=== PATIENT | male | born 1960 | race African-American/Black ===

== ENCOUNTER 2021-01-05 19:47 | Inpatient (IN) | payer MEDICARE, MEDICAID, SELFPAY ==
[2021-01-05] VITALS (10 sets, daily range): BP systolic 109–143; BP diastolic 55–97; PULSE 90–125; RESP 16–22; TEMP 36.4–36.9; O2SAT 96–100; BMI 37.3
--- NOTE | ~2021-01-05 | CT_ITS ---
EXAMINATION: CT HEAD WITHOUT CONTRAST CLINICAL INFORMATION: Follow-up TPA COMPARISON: 01/05/2021 TECHNIQUE: Contiguous axial imaging was performed from the skull base to vertex without intravenous administration of contrast. This CT examination was performed using dose optimization techniques as appropriate, variously including the following: *Automated exposure control *Adjustment of mA and/or kV according to patient size (this includes techniques or standardized protocols for targeted exams where dose is matched to indication/reason for exam; i.e. extremities or head) *Use of iterative reconstruction technique DLP: 770 mGy-cm FINDINGS: No acute intracranial hemorrhage seen. Since the prior study, there is loss of mehta-white differentiation involving the left occipital cortex, image 18.. The region of abnormality measures 2 x 2.4 cm. Also seen is abnormal low density adjacent the left temporal horn in the same image measuring 3.0 x 1.4 cm. The appearance is consistent with subacute left [facility] territory ischemia. There is subtle new asymmetric low density involving the left thalamus, image 25/55, which appears to extend to the left centrum semiovale. Chronic cerebellar infarcts again seen. Again seen is symmetric ex vacuo dilation of the lateral ventricles. Cavum septum pellucidum et vergae. No mass effect or midline shift. No new hydrocephalus. Globes and orbits are normal. No acute sinusitis. No skull fracture. CT/CT head/brain wo con IMPRESSION: No acute intracranial hemorrhage status post TPA administration. New loss of mehta-white differentiation involving the left occipital cortex and abnormal low density in the left temporal lobe consistent with subacute left posterior cerebral artery territory ischemia. Also seen is subtle new asymmetric low density involving the left thalamus, concerning for ischemia. This critical result was discussed with Rebeka TORRES by telephone at 01/06/2021 9:40 PM and it was ascertained that the content and urgency of the report was understood at the time of direct communication.
--- NOTE | ~2021-01-05 | CT_ITS ---
EXAMINATION: CT HEAD WITHOUT CONTRAST (STROKE PROTOCOL) CLINICAL INFORMATION: Stroke protocol. COMPARISON: None TECHNIQUE: Contiguous axial imaging was performed from the skull base to vertex without intravenous administration of contrast. This CT examination was performed using dose optimization techniques as appropriate, variously including the following: *Automated exposure control *Adjustment of mA and/or kV according to patient size (this includes techniques or standardized protocols for targeted exams where dose is matched to indication/reason for exam; i.e. extremities or head) *Use of iterative reconstruction technique DLP: 122 mGy-cm FINDINGS: There is no intracranial hemorrhage, hematoma, or extra-axial fluid collection. The ventricles are normal in size. There is no hydrocephalus, edema, or mass effect. The mehta-white matter differentiation appears symmetric. There is no acute infarct or mass lesion. The calvarium appears intact. There is no pneumocephalus or orbital emphysema. The visualized sinuses and middle ears and mastoid air cells show no significant mucosal thickening. There are no air-fluid levels. CT/CT head for stroke IMPRESSION: No acute intracranial pathology. This critical result was discussed with Dr. Espitia 01/05/20212013 hours It was ascertained that the content and urgency of the report was understood at the time of direct communication.
--- NOTE | ~2021-01-05 | CT_ITS ---
EXAMINATION: CTA OF THE HEAD AND NECK CLINICAL INFORMATION: COMPARISON: Contemporaneous head CT on 01/05/2021. TECHNIQUE: Test bolus sequences followed by intravenous administration 70 mL of Omnipaque 350. Helical imaging was performed in the axial plane from the mediastinum to the skull vertex. Delayed postcontrast imaging of the head was also performed. The data was processed at the radiologic technologist's workstation for generation of MIP sequences. Three-dimensional volume rendered reformatted images were also generated at an offline 3-D workstation. Stenoses are assessed in accordance with NASCET criteria unless otherwise indicated. Limited study with motion artifacts. This CT examination was performed using dose optimization techniques as appropriate, variously including the following: *Automated exposure control *Adjustment of mA and/or kV according to patient size (this includes techniques or standardized protocols for targeted exams where dose is matched to indication/reason for exam; i.e. extremities or head) *Use of iterative reconstruction technique DLP: 1849 mGy-cm. FINDINGS: CTA neck: The aortic arch and origins of the great vessels are obscured due to motion. The proximal vertebral arteries and lower common carotid arteries are not well assessed due to artifacts. The mid to distal common carotid arteries and carotid bifurcations are normal. The cervical internal carotid arteries are normal. The distal cervical vertebral arteries are patent. The soft tissues of the neck are grossly unremarkable and limited for assessment due to motion artifacts. The imaged portions of the lungs demonstrate mild subsegmental atelectasis. CTA head: The intradural vertebral arteries and basilar artery are normal. The right MACHINE ATTENDANT is patent. There is occlusion of the left posterior cerebral artery at the proximal P2 segment. The internal carotid arteries are of normal caliber. The DAMEON and MCA vascular complexes bilaterally are normal. The venous sinuses opacify normally. Moderate diffuse parenchymal volume loss and ex vacuo dilatation of the ventricles noted. Chronic small infarcts in the cerebellum. Chronic infarct in the right occipital lobe. CT/CT angio head neck stroke IMPRESSION: Significantly limited study due to motion degradation and venous contamination in the lower neck from the thyroid cartilage through the mediastinum precluding diagnostic interpretation. The proximal cervical vasculature in the neck is obscured due to motion artifacts and venous contamination. The distal vertebral arteries are patent. The mid to distal common carotid arteries, carotid bifurcations, and internal carotid arteries are patent. Age-indeterminate occlusion of the left MACHINE ATTENDANT at the proximal P2 segment. Remainder of the intracranial vasculature is patent. Findings discussed with Dr. Espitia at 8:45 PM on 01/05/2021.
--- NOTE | ~2021-01-05 | XR_ITS ---
EXAMINATION: XR CHEST CLINICAL INFORMATION: No priors.[place]ke COMPARISON: No priors. TECHNIQUE: Frontal view of the chest was obtained. FINDINGS: Left chest wall AICD with leads overlying the right atrium and right ventricle. Normal lung volumes. No consolidation or pulmonary edema. Mild central vascular congestion. No pneumothorax or pleural effusion. Cardiomediastinal silhouette is mildly enlarged. No acute osseous abnormality. XR/XR chest 1V IMPRESSION: Mild cardiomegaly and central vascular congestion.
--- NOTE | 2021-01-05 19:45 | PC.NURSE ---
PT TO CT IN STRETCHER.
--- NOTE | 2021-01-05 19:50 | ECG_ITS ---
Test Reason : STROKE? Blood Pressure : / mmHG Vent. Rate : 091 BPM Atrial Rate : 081 BPM P-R Int : 000 ms QRS Dur : 118 ms QT Int : 362 ms P-R-T Axes : 000 057 252 degrees QTc Int : 445 ms Atrial fibrillation Low voltage QRS Non-specific intra-ventricular conduction delay Nonspecific T wave abnormality Abnormal ECG No previous ECGs available Referred By: Michael Espitia Electronically Signed By:SEDRICK ODONNELL
--- NOTE | 2021-01-05 19:53 | ED.NEUROSD ---
HPI - Neuro Symptoms/Deficit General Chief Complaint: Neuro Symptoms/Deficit Stated Complaint: stroke alert Time Seen by Provider: 01/05/21 19:50 Source: patient and EMS Mode of arrival: EMS Limitations: no limitations History of Present Illness HPI Narrative: This is a 60-year-old male came in by ambulance for evaluation for possible stroke. 60-year-old male last known seen about an hour ago before arrival, patient had a sudden onset of right-sided weakness, slurred speech, loss of vision in the right eye. Patient is known to have history of atrial fibrillation, patient reportedly not taking anticoagulation. Patient had urological procedure done at [facility] yesterday (record was requested). Patient with a bag a Martines with pinkish urine but no active bleed or clots. Patient unable to give us more history about the procedure done yesterday. Related Data Allergies Allergy/AdvReac Type Severity Reaction Status Date / Time No Known Allergies Allergy Verified 01/05/21 19:50 Review of Systems Review of Systems: All other systems are reviewed and are negative Constitutional: Reports as per HPI and Reports no additional constitutional complaints Eyes: Reports as per HPI and Reports no additional eye complaints Reports system reviewed and no additional complaints, except as documented Cardiovascular: Reports as per HPI and Reports no additional cardiovascular complaints Respiratory: Reports as per HPI and Reports no additional respiratory complaints Gastrointestinal: Reports as per HPI and Reports no additional gastrointestinal complaints Genitourinary: Reports no additional female genitourinary complaints Musculoskeletal: Reports no additional musculoskeletal complaints Skin/Breast: Reports system reviewed and no additional complaints, except as docu Psychiatric: Reports no additional psychiatric complaints Endocrine: Reports no additional endocrine complaints Hematologic/Lymphatic: Reports no additional hematologic/lymphatic complaints Allergic/Immunologic: Reports no additional allergic/immunologic complaints Reports system reviewed and no additional complaints, except as documented and Reports Abnormal speech present [facility] Social History Social History Advance Directives: No Advance Directives Information Provided: Yes Physical Exam Vital Signs: Vital Signs: Last Vital Signs Temp 97.5 F 01/05/21 22:38 Pulse 90 01/05/21 22:38 Resp 22 H 01/05/21 22:38 BP 123/85 01/05/21 22:38 Pulse Ox 98 01/05/21 22:38 Body Mass Index 37.3 Vital signs have been reviewed as appeared to be correct. Blood pressure normal. Heart rate normal. Respiration rate normal. Temperature normal. Oxygen saturation normal. Appearance: Alert. Oriented X3. No acute distress. Head: Normal external exam. Normocephalic. Atraumatic. No Millard signs noted. No raccoon eyes noted Eyes: PERRLA. EOMI. Conjunctiva and sclera normal. Eyelids normal. ENT: TM's Normal. Pharynx normal. Uvula midline. Moist mucous membranes. No trismus noted. No drooling noted. No muffled voice noted. Neck: Normal inspection. Neck supple. FROM. No adenopathy. Thyroid Normal. No meningeal signs. No neck mass noted. CVS: Normal heart rate and rhythm. Heart sound normal. No murmurs noted. Pulses normal throughout. Respiratory: No respiratory distress. Painless inspiration. Breath sounds normal. No wheezes/rales/rhonchi noted. Chest nontender. No accessory muscle usage noted or decreased air movement noted. Abdomen: Soft and nontender. Bowel sounds normal in all 4 quadrants. No distention noted. No organomegaly noted. No visible injury noted. Back: No CVA tenderness. Full range of motion noted. Skin: Skin warm and dry. Normal skin color. Normal skin turgor. No rashes/lesions/lacerations noted. Extremities: No lower extremity edema. Extremities exhibit normal range of motion. Extremities nontender. Neuro: Oriented X 3 please refer to NIH stroke scale Course Course Course Narrative: 60-year-old male with history of atrial fibrillation, patient declined use of anticoagulation, had a urologic procedure done yesterday at [facility] ([facility] record did not indicate that the patient was here yesterday), will check [facility]. Also multiple attempts to reach to [place] his significant other who stated probably patient yesterday had a prostate biopsy and removal of kidney stone but was not 100% sure. Patient has NIH stroke scale of 8 with significant deficit, not taking anticoagulation (even if he is taking anticoagulation assuming that the patient procedure yesterday and anticoagulation was held before the procedure INR is 1.5) should have been held mild urological procedure done yesterday (which is relative contraindication), CT of the head and neck did not show vascular occlusion the can be treated by intravascular, after discussing the case with Dr. Smith from Neurology we should go ahead and give the tPA. Reevaluation(s) Reevaluation #1: TPA was administrated Despite patient is poor historian, patient declined history of recent major surgery, no history of brain bleed, patient confirm his not on anticoagulation. Time: 20:56 Reevaluation #2: Neuro exam after tPA administrated patient now is able to elevate his right arm with some drift but resisting against gravity, also regain of vision in the right I patient now can see fingers count, slight improvement of her right facial droop. Case discussed with Dr. marsh to follow tPA protocol and admit to ICU. Time: 21:23 Reevaluation #3: Finely record of the patient was received from [facility] patient yesterday had TURP procedure and cystoscopy for kidney removal, noted at discharge instructions from [facility] yesterday that patient can resume Xarelto next day if there is no major treatment. Fortunately patient is still improving after tPA administration in no sign of intracranial bleed, however watching Martines catheter showing urine is more bloody but no pete bleeding or blood clotting. Time: 22:48 MDM - Neuro Symptoms/Deficit Lab Data Attestation: I reviewed the patient's lab results. Result diagrams: 01/05/21 20:19 01/05/21 20:19 Labs: Lab Results 01/05/21 01/05/21 01/05/21 Range/Units 20:11 20:19 20:19 WBC 5.1 (4.8-10.8) X10*3/uL RBC 3.94 L (4.60-5.80) X10*6/uL Hgb 8.7 L (14.0-18.0) g/dl Hct 30.2 L (42-52) % MCV 76.6 L (80-98) fL MCH 22.1 L (27.0-33.0) pg MCHC 28.8 L (31.0-36.0) g/dl RDW 26.6 H (11.0-16.0) % Plt Count 176 (160-400) X10*3/uL MPV 10.5 (9.4-12.4) fL Immature Gran % (Auto) 0.2 (0.0-0.4) % Neut % (Auto) 67.9 (45-73) % Lymph % (Auto) 18.1 L (20-40) % [place] % (Auto) 10.6 (2-11) % Eos % (Auto) 2.6 (0-4) % Baso % (Auto) 0.6 (0-2) % Lymph # (Auto) 0.9 L (1.2-4.9) X10*3/uL Win[place] # (Auto) 0.5 (0.1-1.2) X10*3/uL Eos # (Auto) 0.1 (0.0-0.4) X10*3/uL Baso # (Auto) 0.0 (0.0-0.2) X10*3/uL Abs Immat Gran (auto) 0.01 (0.00-0.03) X10*3/uL Absolute Neuts (auto) 3.5 (2.0-8.3) X10*3/uL Absolute Nucleated RBC 0.000 (0.0-0.012) X10*3/uL Nucleated RBC % (auto) 0.0 (0.0-0.2) /100WBC PT 18.0 H (10.8-13.0) SEC INR 1.5 H (0.9-1.1) APTT 32.6 (24.1-38.0) SEC Sodium (135-145) mmol/L Potassium (3.3-5.1) mmol/L Chloride (96-108) mmol/L Carbon Dioxide (22-29) mmol/L Anion Gap (12-20) BUN (9-16) mg/dL Creatinine (0.5-1.4) mg/dL Estim Creat Clear Calc Estimated GFR POC Glucose 112 (60-115) mg/dL Random Glucose (60-115) mg/dL Calcium (8.4-10.2) mg/dL Total Creatine Kinase (38-174) U/L Troponin I High Sens (<3.5-35.0) ng/L 01/05/21 01/05/21 Range/Units 20:19 20:19 WBC (4.8-10.8) X10*3/uL RBC (4.60-5.80) X10*6/uL Hgb (14.0-18.0) g/dl Hct (42-52) % MCV (80-98) fL MCH (27.0-33.0) pg MCHC (31.0-36.0) g/dl RDW (11.0-16.0) % Plt Count (160-400) X10*3/uL MPV (9.4-12.4) fL Immature Gran % (Auto) (0.0-0.4) % Neut % (Auto) (45-73) % Lymph % (Auto) (20-40) % [place] % (Auto) (2-11) % Eos % (Auto) (0-4) % Baso % (Auto) (0-2) % Lymph # (Auto) (1.2-4.9) X10*3/uL Win[place] # (Auto) (0.1-1.2) X10*3/uL Eos # (Auto) (0.0-0.4) X10*3/uL Baso # (Auto) (0.0-0.2) X10*3/uL Abs Immat Gran (auto) (0.00-0.03) X10*3/uL Absolute Neuts (auto) (2.0-8.3) X10*3/uL Absolute Nucleated RBC (0.0-0.012) X10*3/uL Nucleated RBC % (auto) (0.0-0.2) /100WBC PT (10.8-13.0) SEC INR (0.9-1.1) APTT (24.1-38.0) SEC Sodium 142 (135-145) mmol/L Potassium 4.1 (3.3-5.1) mmol/L Chloride 106 (96-108) mmol/L Carbon Dioxide 25 (22-29) mmol/L Anion Gap 15 (12-20) BUN 22 H (9-16) mg/dL Creatinine 2.02 H (0.5-1.4) mg/dL Estim Creat Clear Calc 53.1 Estimated GFR 34 POC Glucose (60-115) mg/dL Random Glucose 91 (60-115) mg/dL Calcium 8.6 (8.4-10.2) mg/dL Total Creatine Kinase 171 (38-174) U/L Troponin I High Sens 20.3 (<3.5-35.0) ng/L Imaging Data Head CT: Radiologist's impression: No acute intracranial pathology CT angio of the head and neck: Radiologist's impression: Significantly limited study due to motion degradation and venous contamination in the lower neck from the thyroid cartilage through the mediastinum precluding diagnostic interpretation. The proximal cervical vasculature in the neck is obscured due to motion artifacts and venous contamination. The distal vertebral arteries are patent. The mid to distal common carotid arteries, carotid bifurcations, and internal carotid arteries are patent. Age-indeterminate occlusion of the left [employer] at the proximal P2 segment. Remainder of the intracranial vasculature is patent. ECG Data Interpretation: Atrial fibrillation at 91 beats per minutes, diffuse nonspecific T-wave changes, prolongation of QRS. NIH Stroke Scale Level of Consciousness: Alert Level of Consciousness Questions: Answers both questions correctly Level of Consciousness Commands: Performs both tasks correctly Best Gaze: Normal Visual: Complete hemianopia Facial Palsy: Partial paralysis (Right-sided) Motor Arm (Right): Some effort against gravity Motor Arm (Left): No drift Motor Leg (Right): No drift Motor Leg (Left): No drift Limb Ataxia: Absent Sensory: Mild to moderate sensory loss Best Language: Mild to moderate aphasia Dysarthia: Normal Extinction and Inattention: No abnormality Score: 8 Critical Care Time Critical Care Time Total Critical Care Time: 60 Attestation: I spent 60 minutes providing critical care service to the patient, this including time spent at the bedside to evaluate the patient, reassess the patient, monitoring vital signs, review labs, and radiographic studies, counseling the patient/family, discussing the case with consultants, disposition the patient. Discharge Plan Discharge Clinical Impression: Cerebrovascular accident Patient Disposition: Admitted As Inpatient
--- NOTE | 2021-01-05 20:05 | PC.NURSE ---
PT TO ROOM #21, EKG OBTAINED, PT ON MONITOR WITH HR 120 IN SR. VS OBTAINED,
--- NOTE | 2021-01-05 20:05 | PC.NURSE ---
BS 112, HOFFMANN INSERTED ARTIFICIAL FLOWERS SUPERVISOR AND DRAINING ORANGE COLORED URINE IN HOFFMANN BAG, URINE 0BTAINED AND SENT TO LAB FOR EVAL. TRYING TO CALL W/O SUCCESS. PT IS TRYING TO REMEMBER WHERE PROCEDURE AT AND IS REMEMBERING HE THINKS HE WAS AT [facility].
[2021-01-05] MEDS: iohexoL 350 MG/ML 75 ML INFUS..BTL IV (20:09)
[2021-01-05 20:23] LABS: Glucose, Whole Blood 112 mg/dL (60-115)
[2021-01-05 20:25] LABS: Imm Gran Abs Auto 0.01 X10*3/uL (0.00-0.03); Imm Gran Pct Auto 0.2 % (0.0-0.4); Lymphocytes Percent Auto 18.1 % (20-40); Mean Corpuscular HGB Conc 28.8 g/dl (31.0-36.0); SCAN SMEAR FLAG 1
[2021-01-05 20:27] LABS: Basophils Percent Auto 0.6 % (0-2); Eosinophils Absolute Auto 0.1 X10*3/uL (0.0-0.4); Eosinophils Percent Auto 2.6 % (0-4); Hematocrit 30.2 % (42-52); Hemoglobin 8.7 g/dl (14.0-18.0); Lymphocytes Absolute Auto 0.9 X10*3/uL (1.2-4.9); Mean Corpuscular Hemoglobin 22.1 pg (27.0-33.0); Mean Corpuscular Volume 76.6 fL (80-98); Mean Platelet Volume 10.5 fL (9.4-12.4); Monocytes Absolute Auto 0.5 X10*3/uL (0.1-1.2); Monocytes Percent Auto 10.6 % (2-11); Neutrophils Absolute Auto 3.5 X10*3/uL (2.0-8.3); Neutrophils Percent Auto 67.9 % (45-73); Platelet Count 176 X10*3/uL (160-400); Red Blood Count 3.94 X10*6/uL (4.60-5.80); Red Cell Distribution Width 26.6 % (11.0-16.0); White Blood Count 5.1 X10*3/uL (4.8-10.8)
[2021-01-05 20:28] LABS: MANUAL DIFF FLAG NO; PLT ABN DIST 1
[2021-01-05 20:38] LABS: INTERNATIONAL NORM RATIO 1.5 (0.9-1.1)
[2021-01-05 20:41] LABS: Partial Thromboplastin Time 32.6 SEC (24.1-38.0)
--- NOTE | 2021-01-05 20:41 | PC.NURSE ---
'S CELL PHONE [phone]
[2021-01-05 20:47] LABS: Anion Gap 15 (12-20); Blood Urea Nitrogen 22 mg/dL (9-16); Calcium 8.6 mg/dL (8.4-10.2); Carbon Dioxide 25 mmol/L (22-29); Chloride 106 mmol/L (96-108); Creatinine Clr Calc Pharmacy 53.1; Estimated Glomerular Filt Rate 34; Glucose Random 91 mg/dL (60-115); Potassium 4.1 mmol/L (3.3-5.1); Sodium 142 mmol/L (135-145)
[2021-01-05 20:50] LABS: Troponin-I High Sensitivity 20.3 ng/L (<3.5-35.0)
--- NOTE | 2021-01-05 21:06 | PC.NURSE ---
TPA STARTED ON PUMP PER EMAR. PT RESTING QUIETLY IN STRETCHER, VS OBTAINED. WILL CONTINUE TO MONITOR PT. MD IN ROOM RE-EVAL PT. PT MOVING AND LIFT RIGHT ARM UP AND DOWN, PT ABLE TO SEE OUT OF RIGHT EYE AT THIS TIME WITH MD.
--- NOTE | 2021-01-05 21:21 | PC.NURSE ---
VS OBTAINED, PT SPEAKING IN CLEAR SENTENCE, RISING RIGHT ARM UP AND DOWN AND ASKING APPROPRIATE QUESTIONS. PT REMAINS ON MONITOR AND WILL CONTINUE TO MONTIOR PT.
--- NOTE | 2021-01-05 21:30 | PC.NURSE ---
PT REMAINS THE SAME, ABLE TO MOVE RIGHT ARM UP AND DOWN. PT STILL HAS SLIGHT FACIAL DROOP TO RIGHT SIDE OF MOUTH. PT REMAINS AWAKE AND ALERT ON MONITOR WITH HR 120 IN AFIB WITH OCCASIONAL PVC'S. ICU PA IN ROOM FOR EVAL.
--- NOTE | 2021-01-05 21:45 | PC.NURSE ---
PT IS HAVING SOME RED BLOOD IN TUBE AND ORANGE COLORED URINE IN HOFFMANN BAG. MELISSA ONOFRE IN ROOM FOR EVAL AND AWARE OF BLOOD IN TUB.
--- NOTE | 2021-01-05 21:52 | PC.NURSE ---
NO CHG IN PT'S CONDITION.
--- NOTE | 2021-01-05 21:58 | PC.NURSE ---
PT ON BED STEELE.
--- NOTE | 2021-01-05 22:07 | PC.NURSE ---
TPA INFUSED AND NS UP AND RUNNING THROUGH LINE. PT DENIES ANY COMPLAINT PT UNABLE TO HAVE BM ON BED STEELE. NO CHG IN PT'S CONDITION.
--- NOTE | 2021-01-05 23:23 | PC.NURSE ---
PT GETTING ANXIOUS AND IS TRYING TO GET OOB. EMPTIED APPROX 1800 ML OF RED/ORANGE COLORED URINE FROM HOFFMANN BAG. PT TOLD SEVERAL TIMES HE CAN NOT GET OOB. PT REFUSING TO USE BEDPAN. VS OBTAINED. AWAITING FOR ICU ROOM ASSIGNMENT.
--- NOTE | 2021-01-05 23:27 | P.HPCC_ITS ---
History of Present Illness Date of Service: 01/05/21 <Bri Wagner PA-C - Last Filed: 01/06/21 01:16> Chief Complaint: right sided weakness <Bri EJ Wagner - Last Filed: 01/06/21 01:16> Patient is a 60-year-old male with a past medical history of CHF, ?afib (self reported not on anticoagulation), ischemic myopathy AICD 2005, DVT, cardiomegaly, HTN, asthma, hypothyroid, BPH, DM2 who ws BIBA to the ED with a stroke alert. Patient was last known well at approximately 6:50pm, 1 hour prior to arrival to ED. His noticed he had sudden right-sided weakness, slurred speech and loss of vision in the right eye. Patient noted he had a urological procedure yesterday but was unable to provide any further information to the ED Dr. His significant other, Vale, was also unable to provide accurate information regarding the procedure to the ED doctor, per notes. Patient's INR was noted to be 1.5. Patient arrived with a Martines in place with a pinkish urine but no active bleed or clots noted by ED doc. NIH stroke scale of an 8 with a significant deficit was noted by ED doctor. ED doctor discussed with Dr. Cordova from Neurology and they decided to give the tPA. tPA was given at 9:06pm. After tPA was given, patient was able to elevate his right arm with some drift but was resisting against gravity. Patient also stated he regained vision in his right eye and a slight improvement of the right facial droop. EKG afib with rate of 91BPM, nonspecific T-wave abnormality, CXR shows AICD in place, mild cardiomegaly and central vascular congestion, labs notable for H&H 8.7/30.2, PT 18, INR 1.5, BUN 22, CR 2.02, pt COVID negative. CT/CT angio head neck stroke IMPRESSION: Significantly limited study due to motion degradation and venous contamination in the lower neck from the thyroid cartilage through the mediastinum precluding diagnostic interpretation. The proximal cervical vasculature in the neck is obscured due to motion artifacts and venous contamination. The distal vertebral arteries are patent. The mid to distal common carotid arteries, carotid bifurcations, and internal carotid arteries are patent. Age-indeterminate occlusion of the left VE TEACHER at the proximal P2 segment. Remainder of the intracranial vasculature is patent. At this time the ICU was called for admission. Records were obtained from [facility], they indicate the patient underwent a TURP procedure and Cytoscopy. There is no note as to when the patient last took his Xalrelto but the discharge instructions clearly state to resume Xarelto tomorrow which would be today. At the bedside, the patient is unable to tell me if he took his Xarelto today, he states he doesn't think he takes it . Martines bag is notable for orange/pink urine, no clots, it becomes more red as you followed up the tube, there also is a small amount of blood (2mL) dripping from the meatus. This was wiped away, I checked it 20 minutes later and no more blood had appeared at the meatus or on t he foreskin. I checked it an hour later and the pad was notable for several small amounts of blood under and around his groin area but again, no blood visibly coming out of the meatus. At this time, the Martines had been dumped and it was filling with light red urine, no clots noted. Patient to be brought to the ICU for monitoring of mental status, evidence of bleeding, Q2H H&H, PT/INR and PTT. Discussed with , we discussed giving the lowest dose of Kcentra now due to notable bleeding in the Martines and the meatus. We will monitor patient closely and if necessary, given empiric dose of tranexamic acid if any further evidence of bleeding is noted. Will get repeat head CT if warranted or concern for bleeding. Lowest K Centra dose confirmed with overnight pharmacy. Once the patient was brought to the ICU, I was able to get in touch with his , Vale, she did check his medications and confirm he is on 20 mg of Xarelto daily but she is unsure of when he last took the medication. She did stay at his baseline he is not confused. I re-examined pt with CLINICAL TEAM MANAGER and found a lot of the blood was due to trauma from the Martines being adhered to the patient's knee via a rubber band and the patient being very active. The RN altered the way the Martines was secured to the leg thereby reducing the trauma, urine in the Martines was notable to return to a light pink. Therefore, we will cancel the Kcentra. Assessment and plan discussed with Dr. Rubio. <Bri Wagner PA-C - Last Filed: 01/06/21 01:16> Review of Systems Review of Systems: Yes all other systems are reviewed and are negative <Bri Wagner PA-C - Last Filed: 01/06/21 01:16> PMFSH Social History Social History: Social History Currently Displaying Signs/Symptoms of Drug Intoxication Withdrawal: No Advance Directives: No Advance Directives Information Provided: Yes Do you have thoughts of harming others: None Do you have a plan to hurt others: No Plan <Bri Wagner PA-C - Last Filed: 01/06/21 01:16> Meds Allergies/Adverse reactions: Allergies Allergy/AdvReac Type Severity Reaction Status Date / Time No Known Allergies Allergy Verified 01/05/21 19:50 <Bri Wagner PA-C - Last Filed: 01/06/21 01:16> Active Medications: Current Medications Generic Name Dose Route Start Last Admin Trade Name Freq PRN Reason Stop Dose Admin Sodium Chloride 3 ml 01/06/21 00:00 0.9 % Sodium Chloride Flush 3 Ml [facility] <Bri Wagner PA-C - Last Filed: 01/06/21 01:16> Home medications: Home Medications Medication Instructions Recorded Confirmed Last Taken Type bumetanide 1 tab PO DAILY 01/06/21 01/06/21 Unknown History carvedilol 25 tab PO TID 01/06/21 01/06/21 Unknown History digoxin 1 tab PO DAILY 01/06/21 01/06/21 Unknown History ferrous sulfate 325 tab PO DAILY 01/06/21 01/06/21 Unknown History furosemide 1 tab PO DAILY 01/06/21 01/06/21 Unknown History levothyroxine 1 tab PO DAILY 01/06/21 01/06/21 Unknown History lisinopril 1 tab PO DAILY 01/06/21 01/06/21 Unknown History magnesium oxide 1 tab PO DAILY 01/06/21 01/06/21 Unknown History potassium chloride 1 tab PO BID 01/06/21 01/06/21 Unknown History tamsulosin 1 cap PO BEDTIME 01/06/21 01/06/21 Unknown History zolpidem 1 tab PO BEDTIME 01/06/21 01/06/21 Unknown History <Bri Wagner PA-C - Last Filed: 01/06/21 01:16> Physical Exam Vital Signs: Vital Signs: Last Vital Signs Temp 98.5 F 01/05/21 22:57 Pulse 108 H 01/05/21 23:25 Resp 21 H 01/05/21 23:25 BP 128/55 L 01/05/21 23:25 Pulse Ox 97 01/05/21 23:25 Body Mass Index 37.3 <Bri Wagner PA-C [employer] Last Filed: 01/06/21 01:16> Const: General: cooperative, healthy appearing, comfortable and no acute distress <Bri Wagner PA-C [employer] Last Filed: 01/06/21 01:16> Nutritional Appearance: obese <Bri Wagner PA-C [employer] Last Filed: 01/06/21 01:16> Orientation/consciousness: patient oriented x3 and Other orientation findings (poor historian) <Bri Wagner PA-C [employer] Last Filed: 01/06/21 01:16> HENMT: Head: Yes normal to inspection, Yes normocephalic, Yes atraumatic, No Millard's sign, No contusion and No raccoon eyes <Bri Wagner PA-C [employer] Last Filed: 01/06/21 01:16> Ears: hearing grossly normal bilaterally <Bri Wagner PA-C [employer] Last Filed: 01/06/21 01:16> General nose exam: Normal external nose present <Bri Wagner PA-C [employer] Last Filed: 01/06/21 01:16> Face and sinus: No face symmetric (Right-sided droop) <POLO Puente [employer] Last Filed: 01/06/21 01:16> Eyes: General: appearance normal, both eyes and all related structures <Bri Wagner PA-C [employer] Last Filed: 01/06/21 01:16> Pupils: Equal, round and reactive pupils present <Bri Wagner PA-C [employer] Last Filed: 01/06/21 01:16> EOM: EOMs intact bilaterally <POLO PuenteC - Last Filed: 01/06/21 01:16> Neck: Neck: Yes normal visual inspection, Yes full ROM and Yes supple <POLO PuenteC - Last Filed: 01/06/21 01:16> Resp: Effort & Inspection: normal respiratory effort and able to speak in complete sentences <POLO PuenteC - Last Filed: 01/06/21 01:16> Auscultation: clear to auscultation bilaterally <POLO PuenteC - Last Filed: 01/06/21 01:16> Cardio: Rate: tachycardic <Bri Wagner PA-C - Last Filed: 01/06/21 01:16> Rhythm: regular rhythm <POLO PuenteC - Last Filed: 01/06/21 01:16> Heart sounds: normal S1 and S2 <POLO PuenteC - Last Filed: 12/12 05/02 01:16> GI: Inspection: Yes obesity <POLO PuenteC - Last Filed: 01/06/21 01:16> Palpation (GI): Soft to palpation and nontender <Bri Wagner PA-C - Last Filed: 01/06/21 01:16> : Other: Martines in place with blood tinged urine, dark pink-light red <Bri Wagner PA-C - Last Filed: 01/06/21 01:16> Penis: normal penis, uncircumcised and other <POLO PuenteC - Last Filed: 01/06/21 01:16> Meatus: Blood at meatus present <Bri Wagner PA-C - Last Filed: 01/06/21 01:16> Scrotum: scrotum normal <POLO PuenteC - Last Filed: 01/06/21 01: 16> Testes: Testes normal <Bri Wagner PA-C - Last Filed: 01/06/21 01:16> Skin: General skin exam: dry skin <MELISSA Puente-Ramon - Last Filed: 01/06/21 01:16> Neuro: General: patient oriented x3, moves all extremities and Unable to assess gait <Bri BernardPOLO osullivanRamon - Last Filed: 01/06/21 01:16> Cranial nerves: Yes Equal, round and reactive pupils present <BriMELISSA FryEbonie - Last Filed: 01/06/21 01:16> Speech: Abnormal speech present slurred <MELISSA PuenteEbonie - Last Filed: 01/06/21 01:16> Gait exam (Neuro): Unable to assess gait <POLO PuenteRamon - Last Filed: 01/06/21 01:16> Motor exam (neuro): Abnormal motor strength present (1/5 right side upper and lower extremity) <POLO PuenteRamon - Last Filed: 01/06/21 01:16> Results Labs CBC and Chem 7: : 01/06/21 05:10 01/06/21 05:10 <POLO PuenteRamon - Last Filed: 01/06/21 01:16> Labs: Laboratory Results - last 24 hr 01/05/21 01/05/21 01/05/21 20:11 20:19 20:19 MCV 76.6 L MCH 22.1 L MCHC 28.8 L RDW 26.6 H Plt Count 176 MPV 10.5 Immature Gran % (Auto) 0.2 Neut % (Auto) 67.9 Lymph % (Auto) 18.1 L [place] % (Auto) 10.6 Eos % (Auto) 2.6 Baso % (Auto) 0.6 Lymph # (Auto) 0.9 L [place] # (Auto) 0.5 Eos # (Auto) 0.1 Baso # (Auto) 0.0 Abs Immat Gran (auto) 0.01 Absolute Neuts (auto) 3.5 Absolute Nucleated RBC 0.000 Nucleated RBC % (auto) 0.0 PT 18.0 H INR 1.5 H APTT 32.6 Anion Gap Estim Creat Clear Calc Estimated GFR POC Glucose 112 Random Glucose Calcium Total Creatine Kinase Troponin I High Sens 01/05/21 01/05/21 20:19 20:19 MCV MCH MCHC RDW Plt Count MPV Immature Gran % (Auto) Neut % (Auto) Lymph % (Auto) [place] % (Auto) Eos % (Auto) Baso % (Auto) Lymph # (Auto) [place] # (Auto) Eos # (Auto) Baso # (Auto) Abs Immat Gran (auto) Absolute Neuts (auto) Absolute Nucleated RBC Nucleated RBC % (auto) PT INR APTT Anion Gap 15 Estim Creat Clear Calc 53.1 Estimated GFR 34 POC Glucose Random Glucose 91 Calcium 8.6 Total Creatine Kinase 171 Troponin I High Sens 20.3 <Bri Wagner PA-C - Last Filed: 01/06/21 01:16> Imaging Radiologist's Impressions: Impressions Head CT 01/05/21 19:50 IMPRESSION: No acute intracranial pathology. This critical result was discussed with Dr. Espitia 01/05/2021, 2013 hours It was ascertained that the content and urgency of the report was understood at the time of direct communication. Head/Neck CTA 01/05/21 19:51 IMPRESSION: Significantly limited study due to motion degradation and venous contamination in the lower neck from the thyroid cartilage through the mediastinum precluding diagnostic interpretation. The proximal cervical vasculature in the neck is obscured due to motion artifacts and venous contamination. The distal vertebral arteries are patent. The mid to distal common carotid arteries, carotid bifurcations, and internal carotid arteries are patent. Age-indeterminate occlusion of the left VE TEACHER at the proximal P2 segment. Remainder of the intracranial vasculature is patent. Findings discussed with Dr. Espitia at 8:45 PM on 01/05/2021. Chest X-Ray 01/05/21 21:32 IMPRESSION: Mild cardiomegaly and central vascular congestion. <Bri Wagner PA-C - Last Filed: 01/06/21 01:16> Assessment and Plan (1) Cerebrovascular accident: Status: Acute <Bri Wagner PA-C - Last Filed: 01/06/21 01:16> Critical Care Time Critical Care Time (minutes): 90 <Bri Wagner PA-C - Last Filed: 01/06/21 01:16>
--- NOTE | 2021-01-05 23:42 | PC.NURSE ---
covid test obtained to lab, labs drawn to lab as per orders.
[2021-01-05 23:49] LABS: Basophils Percent Auto 0.5 % (0-2); Eosinophils Absolute Auto 0.1 X10*3/uL (0.0-0.4); Imm Gran Abs Auto 0.01 X10*3/uL (0.00-0.03); Imm Gran Pct Auto 0.2 % (0.0-0.4); Lymphocytes Absolute Auto 0.7 X10*3/uL (1.2-4.9); MANUAL DIFF FLAG SCAN; Monocytes Absolute Auto 0.5 X10*3/uL (0.1-1.2); Red Blood Count 4.05 X10*6/uL (4.60-5.80); SCAN SMEAR FLAG 1
[2021-01-05 23:51] LABS: Eosinophils Percent Auto 1.7 % (0-4); Hemoglobin 8.9 g/dl (14.0-18.0); Lymphocytes Percent Auto 11.3 % (20-40); Mean Corpuscular HGB Conc 28.7 g/dl (31.0-36.0); Mean Corpuscular Volume 76.5 fL (80-98); Mean Platelet Volume 10.7 fL (9.4-12.4); Monocytes Percent Auto 8.7 % (2-11); Neutrophils Absolute Auto 4.6 X10*3/uL (2.0-8.3); Neutrophils Percent Auto 77.6 % (45-73); PLT ABN DIST 1; Platelet Count 180 X10*3/uL (160-400); Red Cell Distribution Width 26.7 % (11.0-16.0)
[2021-01-06] VITALS (29 sets, daily range): BP systolic 115–148; BP diastolic 60–110; PULSE 74–92; RESP 14–24; TEMP 36.6–36.9; O2SAT 93–99; BMI 43.0; BMI 41.7
[2021-01-06] LABS: COVID-19 Test Negative (Negative); IDNOW Serial# 9DD0AD1C
[2021-01-06 00:11] LABS: Stroke Lab Use COMPLETE
--- NOTE | 2021-01-06 00:11 | PC.NURSE ---
PT CONSTANTLY ASKING HOW LONG? PT WANTING TO GET OOB AT THIS TIME. PT REMAINS ALERT, RESPIRATIONS EASY, N/L. PT ABLE TO RAISE DU ARMS ABOVE HEAD AND SPEAKING IN SHORT SENTENCES. PA IN ROOM FOR RE-EVAL.
[2021-01-06 00:19] LABS: Anion Gap 17 (12-20); Blood Urea Nitrogen 22 mg/dL (9-16); Calcium 8.7 mg/dL (8.4-10.2); Carbon Dioxide 24 mmol/L (22-29); Chloride 105 mmol/L (96-108); Cholesterol 114 mg/dL; Creatinine Clr Calc Pharmacy 55.3; Estimated Glomerular Filt Rate 35; Glucose Random 108 mg/dL (60-115); HDL Cholesterol 34 mg/dL; LDL Cholesterol Calculated 71 mg/dl; Potassium 4.4 mmol/L (3.3-5.1); Sodium 142 mmol/L (135-145); Triglycerides 46 mg/dL
--- NOTE | 2021-01-06 00:22 | PC.NURSE ---
REPORT GIVEN TO ANABELLE HASSAN. PT TO ICU IN STRETCHER WITH MONITOR.
[2021-01-06 00:38] LABS: SLIDE REVIEW VERIFIED
[2021-01-06 01:23] LABS: Basophils Percent Auto 0.5 % (0-2); Eosinophils Absolute Auto 0.1 X10*3/uL (0.0-0.4); Eosinophils Percent Auto 1.6 % (0-4); Hematocrit 30.7 % (42-52); Red Cell Distribution Width 26.5 % (11.0-16.0); SCAN SMEAR FLAG 1
[2021-01-06 01:25] LABS: Hemoglobin 8.7 g/dl (14.0-18.0); Imm Gran Abs Auto 0.03 X10*3/uL (0.00-0.03); Imm Gran Pct Auto 0.5 % (0.0-0.4); Lymphocytes Absolute Auto 0.8 X10*3/uL (1.2-4.9); Lymphocytes Percent Auto 13.1 % (20-40); Mean Corpuscular HGB Conc 28.3 g/dl (31.0-36.0); Mean Corpuscular Hemoglobin 21.9 pg (27.0-33.0); Mean Corpuscular Volume 77.1 fL (80-98); Mean Platelet Volume 10.2 fL (9.4-12.4); Monocytes Absolute Auto 0.5 X10*3/uL (0.1-1.2); Monocytes Percent Auto 8.6 % (2-11); Neutrophils Absolute Auto 4.4 X10*3/uL (2.0-8.3); Neutrophils Percent Auto 75.7 % (45-73); Platelet Count 176 X10*3/uL (160-400); Red Blood Count 3.98 X10*6/uL (4.60-5.80); White Blood Count 5.8 X10*3/uL (4.8-10.8)
[2021-01-06 01:27] LABS: MANUAL DIFF FLAG NO; PLT ABN DIST 1
[2021-01-06 01:31] LABS: INTERNATIONAL NORM RATIO 1.6 (0.9-1.1); Prothrombin Time 19.3 SEC (10.8-13.0)
[2021-01-06 01:34] LABS: Partial Thromboplastin Time 31.5 SEC (24.1-38.0)
[2021-01-06 03:14] LABS: Hemoglobin 8.7 g/dl (14.0-18.0); Red Cell Distribution Width 26.5 % (11.0-16.0); SCAN SMEAR FLAG 1
[2021-01-06 03:16] LABS: Basophils Percent Auto 0.7 % (0-2); Eosinophils Absolute Auto 0.1 X10*3/uL (0.0-0.4); Eosinophils Percent Auto 1.2 % (0-4); Imm Gran Abs Auto 0.02 X10*3/uL (0.00-0.03); Imm Gran Pct Auto 0.3 % (0.0-0.4); Lymphocytes Percent Auto 16.9 % (20-40); Mean Corpuscular Hemoglobin 22.3 pg (27.0-33.0); Mean Corpuscular Volume 76.9 fL (80-98); Mean Platelet Volume 10.2 fL (9.4-12.4); Monocytes Absolute Auto 0.6 X10*3/uL (0.1-1.2); Monocytes Percent Auto 9.6 % (2-11); Neutrophils Absolute Auto 4.2 X10*3/uL (2.0-8.3); Neutrophils Percent Auto 71.3 % (45-73); Platelet Count 174 X10*3/uL (160-400); White Blood Count 5.9 X10*3/uL (4.8-10.8)
[2021-01-06 03:17] LABS: PLT ABN DIST 1
[2021-01-06 03:21] LABS: MANUAL DIFF FLAG NO
[2021-01-06 03:23] LABS: INTERNATIONAL NORM RATIO 1.6 (0.9-1.1); Prothrombin Time 19.4 SEC (10.8-13.0)
[2021-01-06 03:26] LABS: Partial Thromboplastin Time 32.8 SEC (24.1-38.0)
--- NOTE | 2021-01-06 03:50 | PC.NURSE ---
ADMIT TO 261-1 POST-TPA IN ER...AROUSES SPONTANEOUSLY AND/OR TO VERBAL COMMAND...SPEECH REMAINS SLURRED...REPORTS HARD TO FOCUS RIGHT EYE...PUPILS 3MM BILATERALLY...REMAINS WITH RIGHT ARM WEAKNESS...RIGHT HAND GRASP WEAK...ABLE TO LIFT RIGHT ARM OVER HEAD TO COMMAND...VAGUE RESPONSES TO QUESTIONS...DOES NOT REMEMBER EVENTS AT HOME ...BP STABLE...ATRIAL FIB WITH CONTROLLED HR...HOFFMANN PINK-TINGED URINE TO MRAITO URINE...HOFFMANN WITH CLOTH STABILIZER AT ADMIT...HOFFMANN RE-SECURED WITH APPLIANCE...K-CENTRA HELD PER ICU PA...PATIENT DENIES HEADACHE OR PAIN
[2021-01-06 05:24] LABS: Hematocrit 30.6 % (42-52); SCAN SMEAR FLAG 1
[2021-01-06 05:26] LABS: Basophils Percent Auto 0.5 % (0-2); Eosinophils Absolute Auto 0.1 X10*3/uL (0.0-0.4); Eosinophils Percent Auto 1.7 % (0-4); Hemoglobin 8.7 g/dl (14.0-18.0); Imm Gran Abs Auto 0.02 X10*3/uL (0.00-0.03); Imm Gran Pct Auto 0.3 % (0.0-0.4); Lymphocytes Absolute Auto 1.1 X10*3/uL (1.2-4.9); Lymphocytes Percent Auto 18.1 % (20-40); Mean Corpuscular HGB Conc 28.4 g/dl (31.0-36.0); Mean Corpuscular Hemoglobin 21.9 pg (27.0-33.0); Mean Corpuscular Volume 76.9 fL (80-98); Mean Platelet Volume 9.9 fL (9.4-12.4); Monocytes Absolute Auto 0.6 X10*3/uL (0.1-1.2); Monocytes Percent Auto 9.4 % (2-11); Neutrophils Absolute Auto 4.2 X10*3/uL (2.0-8.3); Platelet Count 172 X10*3/uL (160-400); Red Blood Count 3.98 X10*6/uL (4.60-5.80); Red Cell Distribution Width 26.4 % (11.0-16.0)
[2021-01-06 05:27] LABS: Venous Blood Gas Refer to POC result
[2021-01-06 05:28] LABS: VBG HCO3 28 mmol/L (22-26); VBG pCO2 37 mmHg; VBG pH 7.49 (7.32-7.43); VBG pO2 88 mmHg
[2021-01-06 05:31] LABS: MANUAL DIFF FLAG no; PLT ABN DIST 1
[2021-01-06 05:34] LABS: INTERNATIONAL NORM RATIO 1.6 (0.9-1.1); Prothrombin Time 19.6 SEC (10.8-13.0)
[2021-01-06 05:36] LABS: Partial Thromboplastin Time 31.2 SEC (24.1-38.0)
[2021-01-06 05:55] LABS: Anion Gap 15 (12-20); Blood Urea Nitrogen 22 mg/dL (9-16); Calcium 8.9 mg/dL (8.4-10.2); Carbon Dioxide 25 mmol/L (22-29); Chloride 106 mmol/L (96-108); Creatinine Clr Calc Pharmacy 61.5; Estimated Glomerular Filt Rate 37; Glucose Random 105 mg/dL (60-115); Magnesium 2.6 mg/dL (1.6-2.6); Phosphorus 4.2 mg/dL (2.7-4.5); Sodium 142 mmol/L (135-145)
[2021-01-06 08:04] LABS: Glucose, Whole Blood 99 mg/dL (60-115)
[2021-01-06] MEDS: 0.9 % Sodium Chloride Flush 3 ML SYRINGE IVFLUSH ×2 (08:14→17:18)
--- NOTE | 2021-01-06 08:14 | MHC.STROKE ---
Addendum entered by Mojgan Samson, RN 01/24/21 14:24: LATE ENTRY FOR 01/09/24 LDL WAS 71. SPOKE WITH DISCHARGING PIGSKIN TRIMMER AND PATIENT WAS NOT DISCHARGE ON A STATIN BASED ON THE LDL OF 71, TOO CLOSE TO BASELINE GOAL. NON-CONTRAINDICATED. Original Note: 01/05/21 EMS PRE-NOTIFICATION 1938 Maria M YOON 'STROKE ALERT CALLED IN. ARRIVED 1946. SEEN BY DR JOHN THEN DIRECT TO CT AND CTA. LKW 1HR MOVING PICTURE PRODUCER APPROX. 1850. DR ELIZALDE NOTIFIED. HX AFIB. DETERMINING IF CANDIDATE FOR TPA (ALTEPLASE) DELAY IN ADMINISTRATION GREATER THAN 30, 45, AND 60 MINUTES DUE TO CARE TEAM DETERMINING ELIGIBILITY. RECENT UROLOGY PROCEDURE AT [facility] AND CLARIFICATION ON XARELTO MEDICATION. IF WAS DETERMINED TO GIVE THE TPA AND BOLUS GIVEN AT 2106. SEE ED NOTES AND ICU NOTES. PASSED SWALLOW THIS AM. INITIATE STROKE EDUCATION WHEN ABLE.
--- NOTE | 2021-01-06 11:06 | PM.CCPN ---
Subjective Subjective Date of Service: 01/06/21 Interval History: 60-year-old male hypertensive with persistent atrial fibrillation controlled on digoxin and carvedilol presented with loss of vision to the right along with aphasia and right upper extremity weakness consistent with a stroke within the 3 hour time window and CTA did not show any major occluded extracranial vessel and it clearly no hemorrhagic issues so he was given tPA and we found out that he was indeed on Xarelto at 20 mg but said he stopped it 48 hours in advance of a trans urethral prostate procedure that he had had the day before this evolving stroke and did not resume it the following day when he presented to the emergency room but we did have an INR that we could not account for at 1.4 and were concerned about some residual effect of the anti coagulant Received the tPA got back some strength in right upper extremity some improvement in speech although not complete and some partial improvement in his vision to the right side so the right hemianopsia is improving as well and his mental status remained preserved and he had a stable night neurologically and we will get a repeat CT scan at 8:00 a.m. this evening and if okay check his swallow and if that too is okay restore his medications and food we cannot do a CT scan because he has a dual-chamber ICD with 15-year-old leads that are not compatible with MRI and we will await resumption of Xarelto until tomorrow morning Interrogation of his [employer] [facility] ICD shows that in recent memory for 3 months no evidence of a sinus mechanism he is entirely in controlled AFib and he set at single-chamber mode VVI Physical Exam Vital Signs: Vital Signs: Last Vital Signs Temp 98.4 F 01/06/21 08:00 Pulse 83 01/06/21 11:00 Resp 17 01/06/21 11:00 BP 122/76 01/06/21 11:00 Pulse Ox 93 01/06/21 11:00 Body Mass Index 41.7 Const: Other: He is awake and alert an oriented still has a right arm pronator drift as well as other manifestations of weakness still somewhat dysphasic but improving Controlled AFib no neck vein distension and has adequate bilateral carotid upstrokes no bruits No peripheral edema and skin is intact Chest is clear and his EKG shows narrow QRS complex oxygen saturation 92% with respiratory rate of 15 blood pressure 122/76 Objective Data Labs CBC & Chem 7: 01/06/21 05:10 01/06/21 05:10 Labs: Laboratory Results - last 24 hr 01/05/21 01/05/21 01/05/21 20:11 20:19 20:19 WBC 5.1 RBC 3.94 L Hgb 8.7 L Hct 30.2 L MCV 76.6 L MCH 22.1 L MCHC 28.8 L RDW 26.6 H Plt Count 176 MPV 10.5 Immature Gran % (Auto) 0.2 Neut % (Auto) 67.9 Lymph % (Auto) 18.1 L Ralls % (Auto) 10.6 Eos % (Auto) 2.6 Baso % (Auto) 0.6 Lymph # (Auto) 0.9 L Ralls # (Auto) 0.5 Eos # (Auto) 0.1 Baso # (Auto) 0.0 Abs Immat Gran (auto) 0.01 Absolute Neuts (auto) 3.5 Absolute Nucleated RBC 0.000 Nucleated RBC % (auto) 0.0 Smear Tech's Comments PT 18.0 H INR 1.5 H APTT 32.6 VBG pH VBG pCO2 VBG pO2 VBG HCO3 VBG O2 Saturation VBG Base Excess Sodium Potassium Chloride Carbon Dioxide Anion Gap BUN Creatinine Estim Creat Clear Calc Estimated GFR POC Glucose 112 Random Glucose Calcium Phosphorus Magnesium Total Creatine Kinase Troponin I High Sens Triglycerides Cholesterol LDL Cholesterol, Calc HDL Cholesterol COVID-19 (REBECCA) COVID-19 Clin Com 01/05/21 01/05/21 01/05/21 20:19 20:19 23:34 WBC RBC Hgb Hct MCV MCH MCHC RDW Plt Count MPV Immature Gran % (Auto) Neut % (Auto) Lymph % (Auto) Ralls % (Auto) Eos % (Auto) Baso % (Auto) Lymph # (Auto) Ralls # (Auto) Eos # (Auto) Baso # (Auto) Abs Immat Gran (auto) Absolute Neuts (auto) Absolute Nucleated RBC Nucleated RBC % (auto) Smear Tech's Comments PT INR APTT VBG pH VBG pCO2 VBG pO2 VBG HCO3 VBG O2 Saturation VBG Base Excess Sodium 142 Potassium 4.1 Chloride 106 Carbon Dioxide 25 Anion Gap 15 BUN 22 H Creatinine 2.02 H Estim Creat Clear Calc 53.1 Estimated GFR 34 POC Glucose Random Glucose 91 Calcium 8.6 Phosphorus Magnesium Total Creatine Kinase 171 Troponin I High Sens 20.3 Triglycerides Cholesterol LDL Cholesterol, Calc HDL Cholesterol COVID-19 (REBECCA) Negative COVID-19 Clin Com See Note 01/05/21 01/05/21 01/06/21 23:34 23:34 01:14 WBC 6.0 5.8 RBC 4.05 L 3.98 L Hgb 8.9 L 8.7 L Hct 31.0 L 30.7 L MCV 76.5 L 77.1 L MCH 22.0 L 21.9 L MCHC 28.7 L 28.3 L RDW 26.7 H 26.5 H Plt Count 180 176 MPV 10.7 10.2 Immature Gran % (Auto) 0.2 0.5 H Neut % (Auto) 77.6 H 75.7 H Lymph % (Auto) 11.3 L 13.1 L Ralls % (Auto) 8.7 8.6 Eos % (Auto) 1.7 1.6 Baso % (Auto) 0.5 0.5 Lymph # (Auto) 0.7 L 0.8 L Ralls # (Auto) 0.5 0.5 Eos # (Auto) 0.1 0.1 Baso # (Auto) 0.0 0.0 Abs Immat Gran (auto) 0.01 0.03 Absolute Neuts (auto) 4.6 4.4 Absolute Nucleated RBC 0.000 0.000 Nucleated RBC % (auto) 0.0 0.0 Smear Tech's Comments VERIFIED PT INR APTT VBG pH VBG pCO2 VBG pO2 VBG HCO3 VBG O2 Saturation VBG Base Excess Sodium 142 Potassium 4.4 Chloride 105 Carbon Dioxide 24 Anion Gap 17 BUN 22 H Creatinine 1.94 H Estim Creat Clear Calc 55.3 Estimated GFR 35 POC Glucose Random Glucose 108 Calcium 8.7 Phosphorus Magnesium Total Creatine Kinase Troponin I High Sens Triglycerides 46 Cholesterol 114 LDL Cholesterol, Calc 71 HDL Cholesterol 34 COVID-19 (REBECCA) COVID-19 Clin Com 01/06/21 01/06/21 01/06/21 01:14 03:05 03:05 WBC 5.9 RBC 3.90 L Hgb 8.7 L Hct 30.0 L MCV 76.9 L MCH 22.3 L MCHC 29.0 L RDW 26.5 H Plt Count 174 MPV 10.2 Immature Gran % (Auto) 0.3 Neut % (Auto) 71.3 Lymph % (Auto) 16.9 L Ralls % (Auto) 9.6 Eos % (Auto) 1.2 Baso % (Auto) 0.7 Lymph # (Auto) 1.0 L Ralls # (Auto) 0.6 Eos # (Auto) 0.1 Baso # (Auto) 0.0 Abs Immat Gran (auto) 0.02 Absolute Neuts (auto) 4.2 Absolute Nucleated RBC 0.000 Nucleated RBC % (auto) 0.0 Smear Tech's Comments PT 19.3 H 19.4 H INR 1.6 H 1.6 H APTT 31.5 32.8 VBG pH VBG pCO2 VBG pO2 VBG HCO3 VBG O2 Saturation VBG Base Excess Sodium Potassium Chloride Carbon Dioxide Anion Gap BUN Creatinine Estim Creat Clear Calc Estimated GFR POC Glucose Random Glucose Calcium Phosphorus Magnesium Total Creatine Kinase Troponin I High Sens Triglycerides Cholesterol LDL Cholesterol, Calc HDL Cholesterol COVID-19 (REBECCA) COVID-19 Clin Com 01/06/21 01/06/21 01/06/21 05:10 05:10 05:10 WBC 6.0 RBC 3.98 L Hgb 8.7 L Hct 30.6 L MCV 76.9 L MCH 21.9 L MCHC 28.4 L RDW 26.4 H Plt Count 172 MPV 9.9 Immature Gran % (Auto) 0.3 Neut % (Auto) 70.0 Lymph % (Auto) 18.1 L Ralls % (Auto) 9.4 Eos % (Auto) 1.7 Baso % (Auto) 0.5 Lymph # (Auto) 1.1 L Ralls # (Auto) 0.6 Eos # (Auto) 0.1 Baso # (Auto) 0.0 Abs Immat Gran (auto) 0.02 Absolute Neuts (auto) 4.2 Absolute Nucleated RBC 0.000 Nucleated RBC % (auto) 0.0 Smear Tech's Comments PT 19.6 H INR 1.6 H APTT 31.2 VBG pH VBG pCO2 VBG pO2 VBG HCO3 VBG O2 Saturation VBG Base Excess Sodium 142 Potassium 4.0 Chloride 106 Carbon Dioxide 25 Anion Gap 15 BUN 22 H Creatinine 1.88 H Estim Creat Clear Calc 61.5 Estimated GFR 37 POC Glucose Random Glucose 105 Calcium 8.9 Phosphorus 4.2 Magnesium 2.6 Total Creatine Kinase Troponin I High Sens Triglycerides Cholesterol LDL Cholesterol, Calc HDL Cholesterol COVID-19 (REBECCA) COVID-19 [employer] 01/06/21 01/06/21 05:21 08:00 WBC RBC Hgb Hct MCV MCH MCHC RDW Plt Count MPV Immature Gran % (Auto) Neut % (Auto) Lymph % (Auto) Ralls % (Auto) Eos % (Auto) Baso % (Auto) Lymph # (Auto) Ralls # (Auto) Eos # (Auto) Baso # (Auto) Abs Immat Gran (auto) Absolute Neuts (auto) Absolute Nucleated RBC Nucleated RBC % (auto) Smear Tech's Comments PT INR APTT VBG pH 7.49 H VBG pCO2 37 VBG pO2 88 VBG HCO3 28 H VBG O2 Saturation 96.0 VBG Base Excess 5.0 Sodium Potassium Chloride Carbon Dioxide Anion Gap BUN Creatinine Estim Creat Clear Calc Estimated GFR POC Glucose 99 Random Glucose Calcium Phosphorus Magnesium Total Creatine Kinase Troponin I High Sens Triglycerides Cholesterol LDL Cholesterol, Calc HDL Cholesterol COVID-19 (REBECCA) COVID-19 Clin Com Progress Note: A&P Assessment and plan (1) Cerebrovascular accident: Status: Acute (2) Hypertensive cardiovascular disease: Status: Acute (3) Atrial fibrillation with controlled ventricular rate: Status: Acute (4) Chronic renal failure, stage 3 (moderate): Status: Acute (5) Obstructive nephropathy: Status: Acute (6) Status post recent transurethral resection of prostate: Status: Acute Assessment and Plan: Continue to observe and tonight at 8:00 a.m. if no hemorrhagic conversion will allow him to eat and take oral medications and be able to transfer him to the floor and tomorrow restore his Xarelto and we might have to discuss dual anticoagulation and other words with an antiplatelet drug with his other physicians because of bleeding risk Time Spent With Patient Time: Total time spent is greater than 50% in coordination of care (as documented) at patient's floor/unit and/or counseling patient: Total time spent with greater than 50% in coordination of care (as documented) at patient's floor/unit and/or counseling patient:: 35
[2021-01-06 12:28] LABS: Glucose, Whole Blood 112 mg/dL (60-115)
[2021-01-06 17:29] LABS: Glucose, Whole Blood 98 mg/dL (60-115)
--- NOTE | 2021-01-06 17:46 | PM.NEUROCN ---
History of Present Illness Data of Consult Service Date: 01/06/21 Primary Care Provider: Unknown Physician HPI Reason for consult: Acute onset of speech difficulty and right-sided weakness along with dizzin This is a 60-year-old man who may have some underlying dementia who had a TURP done at 2 days prior to presenting in the emergency room with sudden onset of dizziness right-sided weakness and difficulty expressing himself. The patient was unable to provide much information. He had an indwelling catheter with mild hematuria. He was found to have a right facial droop expressive dysphagia and right hemiparesis. Stat CT scan showed no acute findings shows generalized atrophy and ventriculomegaly and old right occipital infarct. CTA was of poor quality because of degradation by motion but did not show any measure occlusive disease. The patient was given tPA because of his deficits and in spite of the fact that he had some hematuria and he was 48 hours postop for TURP. Prior to that he had been on Xarelto for atrial fibrillation and has a pacemaker defibrillator which is not MRI compatible. Following tPA. There has been significant improvement but he is not back to normal. He denies any previous strokes. Stroke risk factors include atrial fibrillation with controlled ventricular rate hypertension. He also has chronic renal failure. Review of Systems Eyes: Eyes: Reports no additional eye complaints ENT: Reports system reviewed and no additional complaints, except as documented and Reports Normal hearing present Cardiovascular: Cardiovascular: Reports no additional cardiovascular complaints Respiratory: Respiratory: Reports no additional respiratory complaints Gastrointestinal: Gastrointestinal: Reports no additional gastrointestinal complaints Genitourinary: Genitourinary: Reports no additional male genitourinary complaints Musculoskeletal: Musculoskeletal: Reports no additional musculoskeletal complaints Integumentary/Breasts: Skin/Breast: Reports system reviewed and no additional complaints, except as docu Neurologic: Reports as per HPI and Reports Normal hearing present Psychiatric: Psychiatric: Reports as per HPI Endocrine: Endocrine: Reports no additional endocrine complaints Hematologic/Lymphatic: Hematologic/Lymphatic: Reports no additional hematologic/lymphatic complaints Allergic/Immunologic: Allergic/Immunologic: Reports no additional allergic/immunologic complaints [facility] Past Medical History Medical History (Updated 01/06/21 @ 17:54 by Jayson Smith MD) Chronic renal failure, stage 3 (moderate) Social History Social History Currently Displaying Signs/Symptoms of Drug Intoxication Withdrawal: No Advance Directives: No Advance Directives Information Provided: Yes Do you have thoughts of harming others: None Do you have a plan to hurt others: No Plan Meds Allergies Allergy/AdvReac Type Severity Reaction Status Date / Time No Known Allergies Allergy Verified 01/05/21 19:50 Active Medications: Current Medications Generic Name Dose Route Start Last Admin Trade Name Abhilash PRN Reason Stop Dose Admin Sodium Chloride 3 ml 01/06/21 00:00 01/06/21 17:18 0.9 % Sodium Chloride Flush 3 Ml [facility] Administration Home Medications Medication Instructions Recorded Confirmed Last Taken Type bumetanide 1 tab PO DAILY 01/06/21 01/06/21 Unknown History carvedilol 25 tab PO TID 01/06/21 01/06/21 Unknown History digoxin 1 tab PO DAILY 01/06/21 01/06/21 Unknown History ferrous sulfate 325 tab PO DAILY 01/06/21 01/06/21 Unknown History furosemide 1 tab PO DAILY 01/06/21 01/06/21 Unknown History levothyroxine 1 tab PO DAILY 01/06/21 01/06/21 Unknown History lisinopril 1 tab PO DAILY 01/06/21 01/06/21 Unknown History magnesium oxide 1 tab PO DAILY 01/06/21 01/06/21 Unknown History potassium chloride 1 tab PO BID 01/06/21 01/06/21 Unknown History tamsulosin 1 cap PO BEDTIME 01/06/21 01/06/21 Unknown History zolpidem 1 tab PO BEDTIME 01/06/21 01/06/21 Unknown History Physical Exam Vital Signs: Vital Signs: Last Vital Signs Temp 98.3 F 01/06/21 12:00 Pulse 74 01/06/21 17:00 Resp 21 H 01/06/21 17:00 BP 146/96 H 01/06/21 17:00 Pulse Ox 95 01/06/21 17:00 Body Mass Index 41.7 Const: General: cooperative, comfortable, no acute distress, well developed, alert and awake Nutritional Appearance: well nourished Orientation/consciousness: oriented to person Limitations: no limitations HENMT: Head: Yes normal to inspection, Yes normocephalic and Yes atraumatic Ears: hearing grossly normal bilaterally General nose exam: Normal external nose present Face and sinus: Yes normal facial exam Mouth: Normal oral and palatal mucosa present Eyes: General: appearance normal, both eyes and all related structures Visual Jacobs: normal visual jacobs by confrontation Alignment and Position: alignment normal Periorbital: periorbital findings normal Eyelids: Yes eyelids normal Conjunctivae: conjunctivae normal Sclerae: sclerae normal Corneas: corneas normal Pupils: Equal, round and reactive pupils present and Pupil accommodation reflex normal EOM: EOMs intact bilaterally Direct Ophthalmoscopy: normal light reflex Neck: Neck: Yes normal visual inspection, Yes full ROM and Yes no meningeal signs Thyroid: Thyroid normal Carotids: normal carotid upstroke and bounding pulses Chest: Chest palpation & inspection: normal inspection of the chest Resp: Effort & Inspection: normal respiratory effort Auscultation: clear to auscultation bilaterally Cardio: Rate: regular rate Rhythm: regular rhythm Heart sounds: S1 normal heart sound present and S2 normal heart sound present Peripheral pulses: Peripheral pulses 2+ throughout GI: Inspection: Yes normal to inspection Percussion: Yes normal to percussion Auscultation: normal bowel sounds Rectal Exam - Male: Yes deferred Back/Spine/Pelvis: Cervical Spine: normal cervical lordosis and cervical ROM normal Thoracic/Lumbar Spine: thoracic and lumbar spine normal to inspection Skin: General skin exam: no rashes or lesions noted Neuro: Other: Is disoriented to time and place. He has some hesitancy and word-finding in his speech and is slow and deliberate. He follows commands. There is no definite dysarthria. There is slight flattening of the right nasolabial fold. 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 Right lower extremity is 5-/5. Plantar response are flexor. General: oriented to person, tone normal, moves all extremities, Normal light touch and pain sensation, no meningeal signs, CN's II-XI intact bilaterally and normal sensation to monofilament Cranial nerves: Yes CN's II-XII intact bilaterally, Yes Equal, round and reactive pupils present, Yes Bilaterally intact EOM present, Yes Nystagmus not present, Yes Normal facial strength present, Yes Midline tongue present, Yes Normal gag reflex present, Yes Symmetric palate elevation present, Yes Normal hearing present and Yes Ability to bilaterally rotate head present Cognition (Neuro): abnormal cognition Speech: Other speech findings present (Neuro) Motor exam (neuro): no tremor noted, no asterixis, Motor fasciculations not present, Normal motor muscle tone present throughout and Motor abnormalities not present Sensory Exam: Bilaterally intact graphesthesia Deep tendon reflexes (DTR's): Right triceps reflex intensity grade: 0, Left triceps reflex intensity grade: 0, Rt Biceps (C5, C6): 0, Left biceps reflex intensity grade: 0, Right brachioradialis reflex intensity grade: 0, Left brachioradialis reflex intensity grade: 0, Right patellar reflex intensity grade: 0, Left patellar reflex intensity grade: 0, Right ankle reflex intensity grade: 0 and Left ankle reflex intensity grade: 0 Plantar Reflex Responses: downgoing: right, left and bilateral Coordination: [id number] test normal, [id number] test normal, tandem gait normal and Romberg test negative Pupils: Normal pupillary reactivity/response: bilateral Extrem: General: Yes normal to inspection, Yes normal exam except as noted and Yes no pedal edema Psych: Appearance: grossly normal Speech and movement: Normal speech and movement present and Clear speech present Affect: normal affect Attitude: cooperative Thought process: Normal thought process present Results Labs CBC & Chem 7: 01/06/21 05:10 01/06/21 05:10 Labs: Short CBC 01/05/21 01/05/21 01/06/21 Range/Units 20:19 23:34 01:14 WBC 5.1 6.0 5.8 (4.8-10.8) X10*3/uL Hgb 8.7 L 8.9 L 8.7 L (14.0-18.0) g/dl Hct 30.2 L 31.0 L 30.7 L (42-52) % Plt Count 176 180 176 (160-400) X10*3/uL 01/06/21 01/06/21 Range/Units 03:05 05:10 WBC 5.9 6.0 (4.8-10.8) X10*3/uL Hgb 8.7 L 8.7 L (14.0-18.0) g/dl Hct 30.0 L 30.6 L (42-52) % Plt Count 174 172 (160-400) X10*3/uL BMP 01/05/21 01/05/21 01/06/21 20:19 23:34 05:10 Sodium 142 142 142 Potassium 4.1 4.4 4.0 Chloride 106 105 106 Carbon Dioxide 25 24 25 BUN 22 H 22 H 22 H Creatinine 2.02 H 1.94 H 1.88 H Calcium 8.6 8.7 8.9 Cardiac Enzymes 01/05/21 Range/Units 20:19 Total Creatine Kinase 171 (38-174) U/L Assessment and Plan (1) Atrial fibrillation with controlled ventricular rate: Problem details: restart Xarelto 01/07/[address] to make sure there is no hemorrhagic conversion of stroke Status: Acute (2) Cerebrovascular accident: Status: Acute PRT, OT and speech therapy. Restart Xarealto after f/u CT on 01/07/21 (3) Chronic renal failure, stage 3 (moderate): Status: Acute
[2021-01-06 21:11] LABS: Glucose, Whole Blood 96 mg/dL (60-115)
--- NOTE | 2021-01-06 23:17 | CA_ITS ---
Transthoracic Echocardiogram Patient (Last, First, Middle): Devan Espinal, Gender: Male Date of : 1960 Age: 60 Procedure Date: 01/06/2021 Procedure Type: Transthoracic Echocardiogram Location: ICU Height: 185.42 cm Weight: 143.34 kg BSA: 2.61 m2 Heart Rate: bpm BP: 123 / 78 mmHg Juice Tester: KYLEE Referring MD: Bri Wagner PA-C Symptoms: s/p CVA with tPA given Study Quality: Fair ECG Rhythm: Atrial Fibrillation Conclusions: - The left ventricular systolic function is severely decreased. The visually estimated ejection fraction is between 25-30%. - The left atrium is moderately dilated. - There is mild calcification of the aortic valve. - There is mild mitral valve regurgitation. - There is mild dilatation of the ascending aorta measuring 4.20 cm. - The inferior vena cava is dilated and collapses greater than 50% with inspiration. Findings Procedure Information Contrast agent, definity, is being given per protocol without apparent complications. Left Ventricle Moderately increased left ventricular cavity size. There is mildly increased left ventricular wall thickness. The left ventricular systolic function is severely decreased. The visually estimated ejection fraction is between 25 30%. There is severe global hypokinesis. Diastolic function is indeterminate on the basis of available data. Right Ventricle Normal right ventricular cavity size and systolic function. There is an ICD wire seen in the right ventricle. Atria The left atrium is moderately dilated. The right atrium is normal in size. Dilated coronary sinus. Aortic Valve There is a normal trileaflet aortic valve. There is mild calcification of the aortic valve. There is no aortic valve stenosis. There is mild aortic valve regurgitation. Mitral Valve The mitral valve appears normal. There is mild mitral valve regurgitation. There is no mitral valve stenosis. Pulmonic Valve The pulmonic valve was not well visualized. Tricuspid Valve The tricuspid valve was not well visualized. There is trace tricuspid valve regurgitation. The right ventricular systolic pressure is 34 mmHg. The pulmonary artery systolic pressure is normal. Great Vessels There is mild dilatation of the ascending aorta measuring 4.20 cm. Venous The inferior vena cava is dilated and collapses greater than 50% with inspiration. Pericardium/Pleural There is no evidence of pericardial effusion. Prior Study Comparison No prior study available for comparison. Measurements 2D Linear Measurements IVSd: 1.19 0.6-0.9/0.6-1.0 cm LVIDd: 7.42 3.9-5.3/4.2-5.9 cm LVIDd Index: 2.84 2.4-3.2/2.2-3.1 cm/m2 LVIDs: 6.48 2.0-3.6 cm LVPWd: 1.15 0.7-1.1 cm Ao Root: 4.20 2.1-3.5 cm LA Diam: 5.00 2.7-3.8/3.0-4.0 cm LAIDs Index: 1.92 1.5-2.3 cm/m2 LV Mass: 542.04 67-162/88-224 g LV Mass Index: 207.68 43-95/49-115 g/m2 LVOT Diam: 2.80 3.0+(-)1.3 cm 2D Systolic Function EF 4C: 41.30 >55% EF 2C: 32.40 >55% EF BiP: 38.50 >55% Mitral Valve MV Decel Time: 211.00 E'Lateral: 6.53 E'Medial: 5.66 Aortic Valve AoV Pk Rayray: 1.20 AoV Mn Rayray: 0.91 AoV VTI: 0.23 AoV Pk Grad: 6.00 Aov Mn Grad: 4.00 DACIA Cont.VTI: 4.83 LVOT LVOT Pk Rayray: 0.86 LVOT Mn Rayray: 0.56 LVOT VTI: 0.18 LVOT Pk Grad: 3.00 LVOT Mn Grad: 2.00 LVOT Diam: 2.80 LVOT Area: 6.16 Diastolic Function E'Medial: 5.66 E' Laterial: 6.53 Tricuspid Valve TR Pk Rayray: 2.54 TR Pk Grad: 26.00 RA Press: 8.00 RVSP: 34.00 Great Vessels Aorta Ao Root-2D: 4.20 2.0-3.7 cm Ao Asc: 4.20 2.1-3.4 cm Ao Arch: 3.30 Updated in Other Vendor System with Status of Final Joe Lunsford MD electronically signed on 01/06/2021 3:12:25 PM with status of Final
[2021-01-07] VITALS (18 sets, daily range): BP systolic 114–153; BP diastolic 62–108; PULSE 82–97; RESP 16–24; TEMP 36–37.2; O2SAT 95–100; BMI 41.5
[2021-01-07] MEDS: 0.9 % Sodium Chloride Flush 3 ML SYRINGE IVFLUSH ×4 (00:23→23:42)
--- NOTE | 2021-01-07 02:51 | PC.NURSE ---
CARE ASSUMED 23;15...AWAKE SPONTANEOUSLY AND/OR TO VERBAL STIMULI...SPEECH REMAINS SOMEWHAT SLURRED...GIRALDO...REPOSITIONS SELF SIDE-SIDE...RIGHT ARM REMAINS WITH GROSS MOTOR CONTROL BUT WEAK HAND GRASP...SWALLOWS LIQUIEDS W/O DIFFICULTY...DENIES HEADACHE...BP STABLE...REMAINS WITH VARIABLE SAO2 READINGS ASLEEP...SAO2 96-98% ROOM AIR BUT TRANSIENT EPISODES SAO2 86-87%..SIMILAR PATTERN 24 HOURS AGO...ICU PA PRESENT AND AWARE..? UNDIAGNOSED SLEEP APNEA...ASYMPTOMATIC WHEN AWAKENED...DAUGHTER MICHEAL FROM [place] CALLED AND PROVIDED WITH UPDATE (TELEPHONE #: [phone])...DAUGHTER TO ATTEMPT TO VISIT/FLY HERE IN 1-2 DAYS...MONITOR REMAINS ATRIAL FIB CONTROLLED HR AND RARE PACED BEAT...HOFFMANN MARITO-ORANGE URINE
[2021-01-07 05:41] LABS: MANUAL DIFF FLAG SCAN; Monocytes Absolute Auto 0.6 X10*3/uL (0.1-1.2); Monocytes Percent Auto 10.5 % (2-11); SCAN SMEAR FLAG 1
[2021-01-07 05:43] LABS: Basophils Percent Auto 0.5 % (0-2); Eosinophils Absolute Auto 0.2 X10*3/uL (0.0-0.4); Eosinophils Percent Auto 3.5 % (0-4); Hematocrit 33.1 % (42-52); Hemoglobin 9.4 g/dl (14.0-18.0); Imm Gran Abs Auto 0.01 X10*3/uL (0.00-0.03); Imm Gran Pct Auto 0.2 % (0.0-0.4); Lymphocytes Percent Auto 16.2 % (20-40); Mean Corpuscular HGB Conc 28.4 g/dl (31.0-36.0); Mean Corpuscular Hemoglobin 22.1 pg (27.0-33.0); Mean Corpuscular Volume 77.9 fL (80-98); Mean Platelet Volume 11.1 fL (9.4-12.4); Neutrophils Absolute Auto 4.1 X10*3/uL (2.0-8.3); Neutrophils Percent Auto 69.1 % (45-73); Platelet Count 182 X10*3/uL (160-400); Red Blood Count 4.25 X10*6/uL (4.60-5.80); White Blood Count 5.9 X10*3/uL (4.8-10.8)
[2021-01-07 05:52] LABS: INTERNATIONAL NORM RATIO 1.5 (0.9-1.1); Prothrombin Time 17.6 SEC (10.8-13.0)
[2021-01-07 05:55] LABS: Partial Thromboplastin Time 32.1 SEC (24.1-38.0)
[2021-01-07 06:03] LABS: Anion Gap 14 (12-20); Blood Urea Nitrogen 19 mg/dL (9-16); Carbon Dioxide 25 mmol/L (22-29); Chloride 107 mmol/L (96-108); Creatinine Clr Calc Pharmacy 69.2; Estimated Glomerular Filt Rate 42; Glucose Random 96 mg/dL (60-115); Magnesium 2.8 mg/dL (1.6-2.6); PLT ABN DIST 1; Phosphorus 4.1 mg/dL (2.7-4.5); Potassium 4.3 mmol/L (3.3-5.1); Sodium 142 mmol/L (135-145)
[2021-01-07 06:17] LABS: SLIDE REVIEW VERIFIED
--- NOTE | 2021-01-07 08:19 | PM.CCPN ---
Subjective Subjective Date of Service: 01/07/21 Interval History: A 60-year-old male with chronic persistent atrial fibrillation and a day congestive cardiomyopathy with 25% ejection fraction and global hypokinesis and of course in combination this is the source of his peripheral embolization and he has underlying hypertensive presented with acute on chronic stage III renal failure in part due to obstructive nephropathy and was chronically on Xarelto at 20 mg. 48 hours prior to a trans urethral resection of his prostate he had the procedure was told he could start the Xarelto the following day which he claims he did not and was the following day that he had the CVA causing a right hemianopsia dysphasia and right upper extremity weakness and he received tPA without complication and had modest improvement in his symptoms and repeat CT scan did failed to show any hemorrhagic conversion and areas of infarction demonstrated on subsequent scanning involving the acute the occipital cortex and even thalamus He has an ICD program to VVI therefore there is no atrial sensing or or firing because of persistent atrial fibrillation so today 8 we have restored his diet combination of 15 mg of Xarelto because of renal function along with digoxin and Coreg for his heart rate control and I reduced his digoxin to every other day and I am utilizing 81 mg of aspirin in addition to Xarelto He is on chronic diuretic therapy with Bumex so I am combining the same 1 mg dose of Bumex with 12.5 mg of spironolactone rather than potassium replacement and put him back on his magnesium at 400 mg daily and of course he now needs to start on the 8th physical and occupational therapy Physical Exam Vital Signs: Vital Signs: Last Vital Signs Temp 98.1 F 01/07/21 03:00 Pulse 93 01/07/21 07:00 Resp 21 H 01/07/21 07:00 BP 129/75 01/07/21 07:00 Pulse Ox 100 01/07/21 07:00 Body Mass Index 41.7 Const: Other: Neurologically there is improvement in his right upper extremity as well as in his speech and even his clarity of thought in other words his cognitive function Cardiac exam with reduced bilateral carotid upstrokes due to diminish stroke work reserve but no neck vein distension Chest clear without adventitious sounds Abdomen benign without organomegaly good bowel sounds also Peripheral either is no edema Objective Data Labs CBC & Chem 7: 01/07/21 05:05 01/07/21 05:05 Labs: Laboratory Results - last 24 hr 01/06/21 01/06/21 01/06/21 12:17 17:22 21:09 WBC RBC Hgb Hct MCV MCH MCHC RDW Plt Count MPV Immature Gran % (Auto) Neut % (Auto) Lymph % (Auto) [place] % (Auto) Eos % (Auto) Baso % (Auto) Lymph # (Auto) [place] # (Auto) Eos # (Auto) Baso # (Auto) Abs Immat Gran (auto) Absolute Neuts (auto) Absolute Nucleated RBC Nucleated RBC % (auto) Smear Tech's Comments PT INR APTT Sodium Potassium Chloride Carbon Dioxide Anion Gap BUN Creatinine Estim Creat Clear Calc Estimated GFR POC Glucose 112 98 96 Random Glucose Calcium Phosphorus Magnesium 01/07/21 01/07/21 01/07/21 05:05 05:05 05:05 WBC 5.9 RBC 4.25 L Hgb 9.4 L Hct 33.1 L MCV 77.9 L MCH 22.1 L MCHC 28.4 L RDW 27.0 H Plt Count 182 MPV 11.1 Immature Gran % (Auto) 0.2 Neut % (Auto) 69.1 Lymph % (Auto) 16.2 L [place] % (Auto) 10.5 Eos % (Auto) 3.5 Baso % (Auto) 0.5 Lymph # (Auto) 1.0 L [place] # (Auto) 0.6 Eos # (Auto) 0.2 Baso # (Auto) 0.0 Abs Immat Gran (auto) 0.01 Absolute Neuts (auto) 4.1 Absolute Nucleated RBC 0.000 Nucleated RBC % (auto) 0.0 Smear Tech's Comments VERIFIED PT 17.6 H INR 1.5 H APTT 32.1 Sodium 142 Potassium 4.3 Chloride 107 Carbon Dioxide 25 Anion Gap 14 BUN 19 H Creatinine 1.69 H Estim Creat Clear Calc 69.2 Estimated GFR 42 POC Glucose Random Glucose 96 Calcium 9.0 Phosphorus 4.1 Magnesium 2.8 H Progress Note: A&P Assessment and plan (1) Cerebrovascular accident: Status: Acute (2) Status post recent transurethral resection of prostate: Status: Acute (3) Obstructive nephropathy: Status: Acute (4) Chronic renal failure, stage 3 (moderate): Status: Acute (5) Atrial fibrillation with controlled ventricular rate: Problem details: restart Xarelto 01/07/[address] to make sure there is no hemorrhagic conversion of stroke Status: Acute (6) Hypertensive cardiovascular disease: Status: Acute (7) Congestive cardiomyopathy: Status: Acute (8) Nonsustained ventricular tachycardia: Status: Acute Assessment and Plan: Plan is to restart his medication but reduce dose of digoxin at 0.125 mg every other day and reduced Xarelto to 15 mg daily all due to his renal insufficiency and reacting his vaso dilator therapy and adding baby aspirin at 81 mg to the Xarelto Time Spent With Patient Time: Total time spent is greater than 50% in coordination of care (as documented) at patient's floor/unit and/or counseling patient: Total time spent with greater than 50% in coordination of care (as documented) at patient's floor/unit and/or counseling patient:: 30
[2021-01-07] MEDS: Magnesium Oxide 400 MG TABLET PO (08:25)
[2021-01-07] MEDS: Levothyroxine Sodium 112 MCG, Levothyroxine Sodium 25 MCG 137 MCG PO (08:25)
[2021-01-07] MEDS: lisinopriL 5 MG TABLET PO (08:25)
[2021-01-07] MEDS: Digoxin 0.125 MG TABLET PO (08:26)
[2021-01-07] MEDS: Bumetanide 1 MG TABLET PO (08:27)
[2021-01-07] MEDS: Rivaroxaban 15 MG TABLET PO (08:27)
[2021-01-07] MEDS: carvediloL 12.5 MG TABLET PO ×2 (08:28→20:10)
[2021-01-07] MEDS: Aspirin 81 MG TAB.CHEW PO (08:28)
[2021-01-07 10:42] LABS: Glucose, Whole Blood 96 mg/dL (60-115)
[2021-01-07 11:51] LABS: Glucose, Whole Blood 94 mg/dL (60-115)
[2021-01-07 16:24] LABS: Glucose, Whole Blood 102 mg/dL (60-115)
[2021-01-07 20:35] LABS: Glucose, Whole Blood 110 mg/dL (60-115)
[2021-01-08 04:00] VITALS: BP 119/60; PULSE 73; RESP 16; TEMP 36.2; O2SAT 97
[2021-01-08] MEDS: Levothyroxine Sodium 112 MCG, Levothyroxine Sodium 25 MCG 137 MCG PO (05:07)
[2021-01-08 07:30] LABS: Glucose, Whole Blood 106 mg/dL (60-115)
[2021-01-08 07:41] VITALS: BP 133/95; PULSE 71; RESP 18; TEMP 36.2; O2SAT 98
[2021-01-08 08:29] VITALS: BP 133/95; PULSE 71; O2SAT 98
[2021-01-08] MEDS: 0.9 % Sodium Chloride Flush 3 ML SYRINGE IVFLUSH (09:00)
[2021-01-08] MEDS: Rivaroxaban 15 MG TABLET PO (09:01)
[2021-01-08] MEDS: lisinopriL 5 MG TABLET PO (09:01)
[2021-01-08] MEDS: Magnesium Oxide 400 MG TABLET PO (09:01)
[2021-01-08] MEDS: Aspirin 81 MG TAB.CHEW PO (09:01)
[2021-01-08] MEDS: carvediloL 12.5 MG TABLET PO (09:01)
[2021-01-08] MEDS: Bumetanide 1 MG TABLET PO (09:04)
--- NOTE | 2021-01-08 09:09 | MHC.CM.PN ---
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 HE LIVES WITH HIS . SUBJECT OF HCP DISCUSSED. PATIENT WILL CONSIDER ASSIGNING AN AGENT, BUT RUELAS NOT WISH TO AT TIME OF THIS DISCUSSION. IMM DISCUSSED. SECONDARY TO ADMITTING DX, PATIENT IS CURRENTLY UNABLE OT USE HIS RIGHT ARM AND ASKS THAT CM SIGN ON HIS BEHLAF. HE DOES VERBALIZE COMPREHENSION OF IMM AND HIS MEDICARE RIGHTS INPATIENT STATUS. IMM IN CHART. CASE MANAGEMENT TO FOLLOW UP WITH CELENA TO DETERMINE WHO PATIENT'S PCP IS. UPDATES TO BE MADE THEN.
[2021-01-08 09:38] LABS: Prothrombin Time Whole Bld POC 16.3 sec (11.1-13.5); ~PT, ~INR - Anti Coag Clinic 1.4 (0.9-1.1)
[2021-01-08 11:12] LABS: Glucose, Whole Blood 140 mg/dL (60-115)
--- NOTE | 2021-01-08 11:29 | MHC.CM.PN ---
CELENA (IN ROOM) CONTACT NUMBER IS [phone]
[2021-01-08 11:59] VITALS: BP 105/75; PULSE 60; RESP 18; TEMP 36.6; O2SAT 98
--- NOTE | 2021-01-08 12:14 | P.DS_ITS ---
DS: Providers Provider Date of Service: 01/08/21 Date of admission: 01/05/21 23:17 Date of discharge: 01/08/21 Primary care physician: Unknown Physician Admitting clinician: Bri Wagner Attending physician on admission: Jannet Rubio Consults: 01/05/21 23:17 Consult to Neurology Routine Consulting Provider: Jayson Smith Reason for consultation: CVA tPA given Attending physician on discharge: Reed Benson Discharging clinician: Fernanda Coronel DS: Diagnosis Discharge Diagnosis (1) Cerebrovascular accident: Status: Acute (2) Status post recent transurethral resection of prostate: Status: Acute (3) Obstructive nephropathy: Status: Acute (4) Chronic renal failure, stage 3 (moderate): Status: Acute (5) Atrial fibrillation with controlled ventricular rate: Status: Acute Problem details: restart Xarelto 01/07/[address] to make sure there is no hemorrhagic conversion of stroke (6) Hypertensive cardiovascular disease: Status: Acute (7) Congestive cardiomyopathy: Status: Acute (8) Nonsustained ventricular tachycardia: Status: Acute DS: Medications Discharge Medications Home Medications: Home Medications Medication Instructions Recorded Confirmed bumetanide 1 tab PO DAILY 01/06/21 01/06/21 carvedilol 25 tab PO TID 01/06/21 01/06/21 digoxin 1 tab PO DAILY 01/06/21 01/06/21 ferrous sulfate 325 tab PO DAILY 01/06/21 01/06/21 furosemide 1 tab PO DAILY 01/06/21 01/06/21 levothyroxine 1 tab PO DAILY 01/06/21 01/06/21 lisinopril 1 tab PO DAILY 01/06/21 01/06/21 magnesium oxide 1 tab PO DAILY 01/06/21 01/06/21 potassium chloride 1 tab PO BID 01/06/21 01/06/21 tamsulosin 1 cap PO BEDTIME 01/06/21 01/06/21 zolpidem 1 tab PO BEDTIME 01/06/21 01/06/21 DS: Summary Hospital Course Hospital Course: 60 year old man presenting to the ED with sudden right-sided weakness, slurred speech and loss vision to the right eye. He recently had a urological procedure (TURP/cystoscopy at [facility]). His last known well time was 1:00 hour prior to arrival to the emergency department. Case was discussed with Neurology and decision was made to administer tPA. Patient was found to some improvements in his condition including vision improvement in his right, improvement to facial droop and right arm and right leg. He still is noted to less control on the right side and slow speech. The patient is on Xarelto at home but had stopped prior to his urological procedure. His vital signs had remained stable more on lower side with his blood pressure therefore his blood pressure medications were adjusted as well as his Xarelto adjusted down to [address] showed no hemorrhagic conversion therefore patient continued his Xarelto. The patient will be transferred to acute inpatient rehabilitation. Attending Dr. Benson Time Spent with Patient Time attestation: Total time spent providing and/or coordinating discharge services: Discharge coordination time: Greater than 30 minutes Physical Exam Vital Signs: Vital Signs: Last Vital Signs Temp 98 F 01/08/21 11:59 Pulse 60 01/08/21 11:59 Resp 18 01/08/21 11:59 BP 105/75 01/08/21 11:59 Pulse Ox 98 01/08/21 11:59 Body Mass Index 41.5 Appearing in no acute distress, follows commands head is normocephalic atraumatic eyes pupils are PERRLA sclera is anicteric mouth throat mucous membranes are intact and moist neck is supple no lymphadenopathy, no JVD noted lung sounds are clear to auscultation heart regular rate rhythm, clear S1, S2 positive bowel sounds, abdomen is soft, nontender neuro patient is alert and oriented. 3-4/5 strength to right upper and lower extremity. DS: Data Data Completed and Pending Labs on day of discharge: Laboratory Results - last 24 hr 01/05/21 01/07/21 01/07/21 19:51 16:09 20:23 Whole Blood PT 16.3 H Whole Blood INR 1.4 H POC Glucose 102 110 01/08/21 01/08/21 07:08 11:06 Whole Blood PT Whole Blood INR POC Glucose 106 140 H Discharge Plan Discharge Anticipated Discharge Date/Time: 01/08/21 12:01 Patient Disposition: Xfer Inpatient Rehab Fac Referrals: [facility] [Other] Physician,Unknown [Primary Care Provider] - Discharge Medications: New lisinopril 5 mg Tablet 5 mg PO DAILY Qty: 30 RF: 0 Xarelto 15 mg Tablet 15 mg PO DAILY Qty: 30 RF: 0 carvedilol 12.5 mg Tablet 12.5 mg PO BID Qty: 60 RF: 0 digoxin 125 mcg (0.125 mg) Tablet 125 mcg PO Q2D Qty: 15 RF: 0 Continued furosemide 40 mg tablet 1 tab PO DAILY RF: 0 levothyroxine 137 mcg tablet 1 tab PO DAILY RF: 0 potassium chloride 10 mEq tablet extended release 1 tab PO BID RF: 0 tamsulosin 0.4 mg capsule 1 cap PO BEDTIME RF: 0 ferrous sulfate 325 mg (65 mg iron) tablet 325 tab PO DAILY RF: 0 bumetanide 1 mg tablet 1 tab PO DAILY RF: 0 zolpidem 10 mg tablet 1 tab PO BEDTIME RF: 0 Discontinued carvedilol 25 mg tablet 25 tab PO TID RF: 0 magnesium oxide 400 mg (241.3 mg magnesium) tablet 1 tab PO DAILY RF: 0 lisinopril 10 mg tablet 1 tab PO DAILY RF: 0 digoxin 125 mcg (0.125 mg) tablet 1 tab PO DAILY RF: 0 Diet: advance to usual diet Activity on Discharge: As tolerated Stand Alone Forms: Patient Portal Discharge page Care Plan Goals: Symptom resolution fof CVA Health Concerns: Stroke Plan of Treatment: Transfer to inpatient rehabilitation Follow up with primary care provider as needed after discharge
[2021-01-08 13:08] LABS: COVID-19 Test Negative (Negative); IDNOW Serial# 9DD0AD1C
--- NOTE | 2021-01-08 14:10 | MHC.CM.PN ---
PATIENT CHOOSES REFERRAL TO [facility]. [facility] SCHEDULED FOR 1730 TRANSPORT TO FACILITY. (IN ROOM), RN, AND UNIT AWARE OF PLAN.
--- NOTE | 2021-01-08 14:40 | MHC.INPTTRAN ---
cont with right sided weakness. States arm and leg are sllightly numb, Has mild expressive aphasia. No diff swallowing. Has F/C, draining hermelindo urine. Placed after TURP prior to admission. Is alert.. OOB with assist, right leg weak. restarted on xarelto. takes pills with water. Denies pain.
--- NOTE | 2021-01-08 14:56 | MHC.CM.PN ---
PCP IS OSCAR MCNEIL OF [facility]. UPDATE MADE IN QUICK TASK OF INESSA
[2021-01-08 15:26] VITALS: BP 128/84; PULSE 82; RESP 19; TEMP 36.4; O2SAT 98
--- NOTE | 2021-01-08 15:44 | MHC.INPTTRAN ---
Dr Maguire from [facility] wants F/C removed on for voiding trial. Questions call their office #[phone] ask for triage. thanks
[2021-01-08 16:18] LABS: Glucose, Whole Blood 80 mg/dL (60-115)
== END 2021-01-08 18:05 | DRG 62 ==
LOC: HO.ED 21:23 → HO.ICU 01-06 00:12 → HO.S3 01-07 09:08
PROVIDERS: Internal Medicine; Nurse Practitioner Acute Care; Admitting Provider Physician Assistant; Emergency Provider Emergency Medicine; PCP Internal Medicine; Visit Provider Family Medicine
DX: I63.9 Cerebral infarction, unspecified (principal); G81.91 Hemiplegia, unspecified affecting right dominant side; I48.19 Other persistent atrial fibrillation; I42.0 Dilated cardiomyopathy; I47.1 Supraventricular tachycardia; I13.10 Hypertensive heart and chronic kidney disease without heart failure, with stage 1 through stage 4 chronic kidney disease, or unspecified chronic kidney disease; N13.9 Obstructive and reflux uropathy, unspecified; R47.81 Slurred speech; H54.61 Unqualified visual loss, right eye, normal vision left eye; N18.30 Chronic kidney disease, stage 3 unspecified; R29.708 NIHSS score 8; Z95.810 Presence of automatic (implantable) cardiac defibrillator; Z20.822 Contact with and (suspected) exposure to COVID-19; Z79.01 Long term (current) use of anticoagulants; Z79.890 Hormone replacement therapy; Z79.899 Other long term (current) drug therapy
CPT/HCPCS: 36415; 70450; 70496; 70498; 71045; 80048; 80061; 82550; 82947; 83735; 84100; 84484; 85025; 85610; 85730; 87635; 93005; 93306; 97163; 97167; 99285; 99291; J2997; Q9967

== ENCOUNTER 2021-03-03 13:18 | Inpatient (IN) | payer MEDICARE, MEDICAID, SELFPAY ==
[2021-03-03] VITALS (8 sets, daily range): BP systolic 111–130; BP diastolic 78–98; PULSE 85–108; RESP 16–28; TEMP 36.6–36.8; O2SAT 95–99; BMI 38.2
--- NOTE | ~2021-03-03 | XR_ITS ---
EXAMINATION: XR KNEE, RIGHT CLINICAL INFORMATION: Right knee pain and swelling. COMPARISON: None TECHNIQUE: Four views of the right knee. FINDINGS: [id number] tricompartmental degenerative joint changes are seen most pronounced in the medial femoral-tibial compartment. There is no acute fracture, dislocation or joint effusion. Mild prepatellar soft tissue swelling is seen. XR/XR knee RT 4V IMPRESSION: [id number] tricompartmental degenerative joint changes without acute abnormality.
--- NOTE | ~2021-03-03 | XR_ITS ---
EXAMINATION: XR KNEE, RIGHT CLINICAL INFORMATION: Knee pain COMPARISON: 03/03/2021 TECHNIQUE: Four views of the right knee. FINDINGS: Mild varus deformity of the right knee. Trace suprapatellar knee effusion. Tricompartmental arthritis is seen with moderate narrowing of the medial and lateral compartments and moderate osteophyte formation at the condyles, tibial spines and patellar margins. No acute fracture or dislocation is seen. XR/XR knee RT 4V IMPRESSION: Tricompartmental arthritis. No visible fracture or dislocation is seen. Small knee effusion.
--- NOTE | ~2021-03-03 | XR_ITS ---
EXAMINATION: XR CHEST CLINICAL INFORMATION: Dyspnea. COMPARISON: 01/05/2021 portable chest. TECHNIQUE: Frontal view of the chest was obtained. FINDINGS: Support devices: Left-sided pacemaker device in good position without interval change. There has been mild interval increase in pulmonary vascular markings with bibasilar hazy opacities. The heart is mildly enlarged. The mediastinal structures are unremarkable. XR/XR chest 1V IMPRESSION: Mild CHF appears mildly increased compared to the previous study.
--- NOTE | 2021-03-03 15:59 | ED_ITS ---
HPI - SOB/Dyspnea General Chief Complaint: Dyspnea Stated Complaint: sob Time Seen by Provider: 03/03/21 15:57 Source: patient Mode of arrival: ambulatory Limitations: no limitations History of Present Illness HPI Narrative: 60 yo male with CKD, obesity, ischemic cardiomyoapthy AICD, DVT on xarelto, HTN, asthma, BPH, DM, afib reports one week of dyspnea and orthopnea, denies weight gain reports compliance with medications and diet, no fevers, no cough, no sick contacts MD elicited complaint: shortness of breath Pertinent past history: asthma, congestive heart failure, diabetes and DVT Onset (ago): week(s) (1) Timing: intermittent Severity: moderate Exacerbating factors: lying flat Relieving factors: oxygen, rest and upright position Known history of: asthma and congestive heart failure Associated symptoms: orthopnea and other (chronic R knee pain atraumatic) Treatment prior to arrival: oxygen Related Data Home Medications Medication Instructions Recorded Confirmed bumetanide 1 tab PO DAILY 01/06/21 01/06/21 ferrous sulfate 325 tab PO DAILY 01/06/21 01/06/21 furosemide 1 tab PO DAILY 01/06/21 01/06/21 levothyroxine 1 tab PO DAILY 01/06/21 01/06/21 potassium chloride 1 tab PO BID 01/06/21 01/06/21 tamsulosin 1 cap PO BEDTIME 01/06/21 01/06/21 zolpidem 1 tab PO BEDTIME 01/06/21 01/06/21 Previous Rx's Medication Instructions Recorded carvedilol 12.5 mg PO BID #60 tab 01/08/21 digoxin 125 mcg PO Q2D #15 tab NS 01/08/21 lisinopril 5 mg PO DAILY #30 tab 01/08/21 rivaroxaban [Xarelto] 15 mg PO DAILY #30 tab 01/08/21 Allergies Allergy/AdvReac Type Severity Reaction Status Date / Time No Known Allergies Allergy Verified 03/03/21 14:00 Review of Systems Review of Systems: Constitutional : No Fever, No Chills ENT/Mouth : No sore throat, No Rhinorrhea, No Swallowing Difficulty Eyes: No Eye Pain, No Swelling, No Redness Cardiovascular : No Chest Pain, positive SOB, pos Orthopnea, no Edema Respiratory : No Cough, No Sputum, No Wheezing, positive dyspnea Gastrointestinal : No Nausea, No Vomiting, No Diarrhea, No abdominal Pain, No Hematochezia, No Melena Genitourinary : No Dysuria, No Urinary Frequency, No Hematuria Musculoskeletal : pos joint pain, No Myalgias Skin : No Skin Lesions, No rash Neuro : No Weakness, No Numbness, No Dizziness, No Headache Psych : No Anxiety/Panic, No Depression Heme/Lymph: No Bruising, No Lymphadenopathy Endocrine : No Polyuria, No Polydipsia All other systems reviewed and are negative COUNT INCLUDES THE [facility] Past Medical History Attestation statement: The following information was validated with the patient. Medical History (Updated 03/03/21 @ 17:45 by Liseth Castro DO) Asthma Atrial fibrillation with RVR Chronic renal failure, stage 3 (moderate) Congestive cardiomyopathy DVT (deep venous thrombosis) Nonsustained ventricular tachycardia Social History Social History Smoked in Last 30 Days: No Use of substances other than those prescribed or required for medical reasons: No Advance Directives: No Advance Directives Information Provided: Yes service: No Current occupational status: employed Physical Exam Vital Signs: Vital Signs: Last Vital Signs Temp 98.2 F 03/03/21 15:52 Pulse 85 03/03/21 17:04 Resp 16 03/03/21 17:04 BP 130/98 H 03/03/21 17:04 Pulse Ox 99 03/03/21 17:04 Body Mass Index 38.2 Appearance: Alert. Oriented X3. No acute distress. Eyes: Pupils equal, round and reactive to light. ENT: Pharynx normal. Neck: Normal inspection. Neck supple. CVS: Normal heart rate and rhythm. Pulses normal. Respiratory: No respiratory distress. Breath sounds decreased, rales in bases, desats to high 70s lying flat on O2 Abdomen: Soft and nontender. obese Skin: Skin warm and dry. Normal skin color. Normal skin turgor. Extremities: 1+ lower extremity edema pitting, R knee pain mild swelling but no warmth or erythema. No calf ttp Neuro: Oriented X 3. No motor deficit. No sensory deficit. Course Course Course Narrative: IV bumex ordered MDM - SOB/Dyspnea MDM Narrative Medical decision making narrative: 60 yo male with CKD, obesity, ischemic cardiomyoapthy AICD, DVT on xarelto, HTN, asthma, BPH, DM, afib reports one week of dyspnea and orthopnea, denies weight gain reports compliance with medications and diet, no fevers, no cough, no sick contacts but notes when he lies flat becomes short of breath - down to high 70s with supine position - brought up to 90s with 3L NC at this time likely CHF, labs, CXR, compliant with xarelto doubt PE - IV bumex ordered, dispo per results and findings. Lab Data Result diagrams: 03/03/21 16:05 03/03/21 16:43 Labs: Lab Results 03/03/21 03/03/21 03/03/21 Range/Units 16:05 16:05 16:05 WBC 5.7 (4.8-10.8) X10*3/uL RBC 4.47 L (4.60-5.80) X10*6/uL Hgb 11.1 L (14.0-18.0) g/dl Hct 35.6 L (42-52) % MCV 79.6 L (80-98) fL MCH 24.8 L (27.0-33.0) pg MCHC 31.2 (31.0-36.0) g/dl RDW 21.8 H (11.0-16.0) % Plt Count 149 L (160-400) X10*3/uL MPV Not Reportable Immature Gran % (Auto) 0.4 (0.0-0.4) % Neut % (Auto) 70.9 (45-73) % Lymph % (Auto) 17.5 L (20-40) % [place] % (Auto) 10.1 (2-11) % Eos % (Auto) 0.7 (0-4) % Baso % (Auto) 0.4 (0-2) % Lymph # (Auto) 1.0 L (1.2-4.9) X10*3/uL [place] # (Auto) 0.6 (0.1-1.2) X10*3/uL Eos # (Auto) 0.0 (0.0-0.4) X10*3/uL Baso # (Auto) 0.0 (0.0-0.2) X10*3/uL Abs Immat Gran (auto) 0.02 (0.00-0.03) X10*3/uL Absolute Neuts (auto) 4.0 (2.0-8.3) X10*3/uL Absolute Nucleated RBC 0.000 (0.0-0.012) X10*3/uL Nucleated RBC % (auto) 0.0 (0.0-0.2) /100WBC Hold Blue Top SEE NOTE Sodium (135-145) mmol/L Potassium (3.3-5.1) mmol/L Chloride (96-108) mmol/L Carbon Dioxide (22-29) mmol/L Anion Gap (12-20) BUN (9-16) mg/dL Creatinine (0.5-1.4) mg/dL Estim Creat Clear Calc Estimated GFR Random Glucose (60-115) mg/dL Calcium (8.4-10.2) mg/dL Troponin I High Sens 26.6 (<3.5-35.0) ng/L B-Natriuretic Peptide 802 H (<100) pg/mL Digoxin (0.8-2.0) ng/mL COVID-19 ([facility]CCA) (Negative) COVID-19 Clin Com 03/03/21 03/03/21 03/03/21 Range/Units 16:33 16:43 16:43 WBC (4.8-10.8) X10*3/uL RBC (4.60-5.80) X10*6/uL Hgb (14.0-18.0) g/dl Hct (42-52) % MCV (80-98) fL MCH (27.0-33.0) pg MCHC (31.0-36.0) g/dl RDW (11.0-16.0) % Plt Count (160-400) X10*3/uL MPV Immature Gran % (Auto) (0.0-0.4) % Neut % (Auto) (45-73) % Lymph % (Auto) (20-40) % [place] % (Auto) (2-11) % Eos % (Auto) (0-4) % Baso % (Auto) (0-2) % Lymph # (Auto) (1.2-4.9) X10*3/uL [place] # (Auto) (0.1-1.2) X10*3/uL Eos # (Auto) (0.0-0.4) X10*3/uL Baso # (Auto) (0.0-0.2) X10*3/uL Abs Immat Gran (auto) (0.00-0.03) X10*3/uL Absolute Neuts (auto) (2.0-8.3) X10*3/uL Absolute Nucleated RBC (0.0-0.012) X10*3/uL Nucleated RBC % (auto) (0.0-0.2) /100WBC Hold Blue Top Sodium 141 (135-145) mmol/L Potassium 4.3 (3.3-5.1) mmol/L Chloride 109 H (96-108) mmol/L Carbon Dioxide 21 L (22-29) mmol/L Anion Gap 15 (12-20) BUN 23 H (9-16) mg/dL Creatinine 1.69 H (0.5-1.4) mg/dL Estim Creat Clear Calc 66.1 Estimated GFR 42 Random Glucose 114 (60-115) mg/dL Calcium 8.9 (8.4-10.2) mg/dL Troponin I High Sens (<3.5-35.0) ng/L B-Natriuretic Peptide (<100) pg/mL Digoxin 0.4 L (0.8-2.0) ng/mL COVID-19 (REBECCA) Negative (Negative) COVID-19 Clin Com See Note Discharge Plan Discharge Clinical Impression: Congestive heart failure Patient Disposition: Admitted As Inpatient Prescriptions: No [facility] furosemide 40 mg tablet 1 tab PO DAILY RF: 0 levothyroxine 137 mcg tablet 1 tab PO DAILY RF: 0 potassium chloride 10 mEq tablet extended release 1 tab PO BID RF: 0 tamsulosin 0.4 mg capsule 1 cap PO BEDTIME RF: 0 ferrous sulfate 325 mg (65 mg iron) tablet 325 tab PO DAILY RF: 0 bumetanide 1 mg tablet 1 tab PO DAILY RF: 0 zolpidem 10 mg tablet 1 tab PO BEDTIME RF: 0 carvedilol 12.5 mg Tablet 12.5 mg PO BID Qty: 60 RF: 0 lisinopril 5 mg Tablet 5 mg PO DAILY Qty: 30 RF: 0 digoxin 125 mcg (0.125 mg) Tablet 125 mcg PO Q2D Qty: 15 RF: 0 Xarelto 15 mg Tablet 15 mg PO DAILY Qty: 30 RF: 0
--- NOTE | 2021-03-03 15:59 | ECG_ITS ---
Test Reason : DYSPNEA Blood Pressure : / mmHG Vent. Rate : 088 BPM Atrial Rate : 241 BPM P-R Int : 000 ms QRS Dur : 116 ms QT Int : 384 ms P-R-T Axes : 000 -20 158 degrees QTc Int : 464 ms Atrial fibrillation with Accelerated Junctional rhythm Low voltage QRS ST & T wave abnormality, consider lateral ischemia Prolonged QT Abnormal ECG When compared with ECG of 05-JAN-2021 20:11, Accelerated Junctional rhythm is now Present Referred By: Liseth Castro Electronically Signed By:DOUGLAS MCKEON MD
[2021-03-03 16:13] LABS: Hemoglobin 11.1 g/dl (14.0-18.0); Mean Corpuscular Hemoglobin 24.8 pg (27.0-33.0); Monocytes Absolute Auto 0.6 X10*3/uL (0.1-1.2); Red Cell Distribution Width 21.8 % (11.0-16.0); SCAN SMEAR FLAG 1
[2021-03-03] MEDS: oxyCODONE HCl Immed Release 5 MG TABLET PO (16:13)
[2021-03-03 16:15] LABS: Basophils Percent Auto 0.4 % (0-2); Eosinophils Percent Auto 0.7 % (0-4); Hematocrit 35.6 % (42-52); Imm Gran Abs Auto 0.02 X10*3/uL (0.00-0.03); Imm Gran Pct Auto 0.4 % (0.0-0.4); Lymphocytes Percent Auto 17.5 % (20-40); Mean Corpuscular HGB Conc 31.2 g/dl (31.0-36.0); Mean Corpuscular Volume 79.6 fL (80-98); Monocytes Percent Auto 10.1 % (2-11); Neutrophils Percent Auto 70.9 % (45-73); Platelet Count 149 X10*3/uL (160-400); Red Blood Count 4.47 X10*6/uL (4.60-5.80); White Blood Count 5.7 X10*3/uL (4.8-10.8)
[2021-03-03 16:18] LABS: MANUAL DIFF FLAG NO; PLT ABN DIST 1
[2021-03-03] MEDS: Bumetanide 1 MG/4 ML VIAL IVPUSH (16:27)
[2021-03-03 16:36] LABS: B Type Natriuretic Peptide 802 pg/mL (<100); Troponin-I High Sensitivity 26.6 ng/L (<3.5-35.0)
[2021-03-03] MEDS: Albuterol Sulfate (0.083%) 2.5 MG/3 ML VIAL.NEB INHALE (16:50)
[2021-03-03 17:11] LABS: COVID-19 Test Negative (Negative)
[2021-03-03 17:14] LABS: Digoxin 0.4 ng/mL (0.8-2.0)
[2021-03-03 17:20] LABS: Anion Gap 15 (12-20); Blood Urea Nitrogen 23 mg/dL (9-16); Calcium 8.9 mg/dL (8.4-10.2); Carbon Dioxide 21 mmol/L (22-29); Chloride 109 mmol/L (96-108); Creatinine Clr Calc Pharmacy 66.1; Estimated Glomerular Filt Rate 42; Glucose Random 114 mg/dL (60-115); Potassium 4.3 mmol/L (3.3-5.1); Sodium 141 mmol/L (135-145)
--- NOTE | 2021-03-03 21:03 | PC.NURSE ---
PT RESTING IN STRETCHER REQUESTING ROOM ASSIGNMENT. PT ALERT, RESPIRATIONS SLIGHTLY SOB, PT ON 3L NC WITH A PO OF 97%. PT REMAINS ON THE MONITOR WITH HR OF 109. PT REPOSITIONED, B/P OBTAINED. PT C/O BEING HOT . ICE PACK TO PT'S NECK FOR COMFORT. AWAITING PT'S ROOM ASSIGNMENT.
--- NOTE | 2021-03-03 22:26 | P.HPHOSP_ITS ---
History of Present Illness Date of Service: 03/03/21 Chief Complaint: SOB This is a 6-year-old male with past medical history of AFib, CHF, DVT, nonsustained VT, asthma presents to the hospital with complaints of shortness of breath. Patient reports that he has been having difficulty with breathing for the past 1 month. He denies any cough, no sputum production, he noticed right- sided leg swelling after he experienced a fall about a week and half ago. He is complaining of severe right knee pain. Of note patient had a stroke about a month ago and has had difficulty with right-sided weakness and post CVA hemiparesis of the right side. Had 2 x-rays of his right knee but both have been inconclusive and he is very frustrated and is in 10/10 right knee pain. Patient reports no chest pain, no palpitations at this time, no headache, no change in vision, no lightheadedness, no abdominal pain nausea or vomiting, no diarrhea constipation, no urinary symptoms. No new weakness numbness or tingling. On arrival to the ED patient vitals significant for temp of 97.9?, heart rate of 98, respiratory rate of 28, blood pressure of 129/95, a satting 98% on room air Labs are significant for WBC count of 5.7, hemoglobin of 11.1 which is higher than his baseline, sodium of 141, potassium 4.3, chloride of 109, BUN of 23, creatinine of 1.6 now which is around his baseline, BNP of 802, digoxin level of 0.4, COVID-19 negative. Chest x-ray shows mild CHF appears mildly increased compared to the previous study Knee x-ray shows mild to moderate tricompartmental degenerative joint changes without acute abnormality Will admit patient for further management Past medical history as below in confirm with patient Review of Systems Review of Systems: Yes all other systems are reviewed and are negative [facility] Medical History (Updated 03/04/21 @ 05:39 by Josy Jorge MD) Asthma Atrial fibrillation with RVR Chronic renal failure, stage 3 (moderate) Congestive cardiomyopathy Depression DVT (deep venous thrombosis) Hypothyroidism Nonsustained ventricular tachycardia Social History Do you presently have visiting nurse or other home services: Yes Unable to assess alcohol history related to: Unknown Smoking Status: Unknown if ever smoked Smoked in Last 30 Days: No Patient Interested in Nicotine Replacement: No Patient Given Instructions on How to Stop Smoking: No Second Hand Smoke Exposure: No Use of substances other than those prescribed or required for medical reasons: Unknown Have you been hit, kicked, punched, or otherwise hurt by someone within the past year? If so, by whom?: No Do you feel safe in your current relationship?: No Is there a partner from a previous relationship who is making you feel unsafe now?: No Advance Directives: No Advance Directives Information Provided: Yes Do you have thoughts of harming others: None Do you have a plan to hurt others: No Plan Recently lost weight without trying: No Poor oral hygiene: No service: No Current occupational status: employed Meds Allergies Allergy/AdvReac Type Severity Reaction Status Date / Time No Known Allergies Allergy Verified 03/03/21 14:00 Active Medications: Current Medications Generic Name Dose Route Start Last Admin Trade Name Freq PRN Reason Stop Dose Admin Acetaminophen 650 mg 03/03/21 21:02 Acetaminophen 325 Mg Tablet PO Q6H PRN Pain, Mild (Pain Scale 1-3) Atorvastatin Calcium 80 mg 03/03/21 21:02 Atorvastatin Calcium 80 Mg Tablet PO BEDTIME [facility] Carvedilol 6.25 mg 03/03/21 21:02 Carvedilol 3.125 Mg Tablet PO BID [facility] Protocol Digoxin 0.125 mg 03/04/21 09:00 Digoxin 0.125 Mg Tablet PO [id number] [facility] Furosemide 40 mg 03/03/21 21:02 Furosemide 40 Mg/4 Ml Vial IVPUSH Q12H [facility] Protocol Isosorbide Dinitrate 20 mg 03/03/21 21:02 Isosorbide Dinitrate 20 Mg Tablet PO TID [facility] Protocol Levothyroxine Sodium 112 mcg/ 137 mcg 03/04/21 06:00 Levothyroxine Sodium 25 mcg PO DAILY@0600 [facility] Lisinopril 5 mg 03/04/21 09:00 Lisinopril 5 Mg Tablet PO DAILY [facility] Protocol Melatonin 3 mg 03/03/21 21:02 Melatonin 3 Mg Tablet PO BEDTIME [facility] Ondansetron HCl 4 mg 03/03/21 21:02 Ondansetron Hcl 4 Mg/2 Ml Vial IVPUSH Q8H PRN Nausea and Vomiting Potassium Chloride 10 meq 03/03/21 21:02 Potassium Chloride Er 10 Meq Capsule.Er PO BID [facility] Rivaroxaban 15 mg 03/04/21 09:00 Rivaroxaban 15 Mg Tablet PO DAILY [facility] Sertraline HCl 50 mg 03/04/21 09:00 Sertraline Hcl 50 Mg Tablet PO DAILY [facility] Sodium Chloride 3 ml 03/04/21 00:00 0.9 % Sodium Chloride Flush 3 Ml Syringe IVFLUSH QSHIFT [facility] Tamsulosin HCl 0.4 mg 03/03/21 21:02 Tamsulosin Hcl 0.4 Mg Capsule PO BEDTIME [facility] Zolpidem Tartrate 10 mg 03/03/21 21:02 Zolpidem Tartrate 5 Mg Tablet PO BEDTIME [facility] Home Medications Medication Instructions Recorded Confirmed Last Taken Type bumetanide 1 tab PO DAILY 01/06/21 03/03/21 Unknown History ferrous sulfate 325 tab PO DAILY 01/06/21 03/03/21 Unknown History levothyroxine 1 tab PO DAILY 01/06/21 03/03/21 Unknown History potassium chloride 1 tab PO BID 01/06/21 03/03/21 Unknown History tamsulosin 1 cap PO BEDTIME 01/06/21 03/03/21 Unknown History zolpidem 1 tab PO BEDTIME 01/06/21 03/03/21 Unknown History atorvastatin 1 tab PO BEDTIME 03/03/21 03/03/21 Unknown History carvedilol 6.25 mg PO BID 03/03/21 03/03/21 Unknown History digoxin 125 mcg PO USEASDIRECTD 03/03/21 03/03/21 Unknown History isosorbide dinitrate 20 mg PO TID 03/03/21 03/03/21 Unknown History melatonin 3 mg PO BEDTIME 03/03/21 03/03/21 Unknown History sertraline 1 tab PO DAILY 03/03/21 03/03/21 Unknown History Physical Exam Vital Signs and Narrative: Vital Signs: Last Vital Signs Temp 98.3 F 03/03/21 19:29 Pulse 93 03/03/21 19:29 Resp 20 03/03/21 19:29 BP 121/93 H 03/03/21 19:29 Pulse Ox 98 03/03/21 19:29 Body Mass Index 38.2 Const: General: cooperative and no acute distress Orientation/consciousness: patient oriented x3 Eyes: General: appearance normal, both eyes and all related structures Resp: Effort & Inspection: normal respiratory effort and able to speak in complete sentences Cardio: Rate: regular rate Rhythm: regular rhythm GI: Palpation (GI): Soft to palpation Auscultation: normal bowel sounds Skin: General skin exam: no rashes or lesions noted Neuro: Other: 2/5 strength in the right upper and lower extremity, General: patient oriented x3 Cognition (Neuro): normal cognition Extrem: Other: Right knee swollen as compared to the left, no erythema, warmth, or significant tenderness on palpation General: Yes normal to inspection and Yes no pedal edema Results Labs CBC and Chem 7: 03/03/21 16:05 03/03/21 16:43 Labs: Laboratory Results - last 24 hr 03/03/21 03/03/21 03/03/21 16:05 16:05 16:05 MCV 79.6 L MCH 24.8 L MCHC 31.2 RDW 21.8 H Plt Count 149 L MPV Not Reportable Immature Gran % (Auto) 0.4 Neut % (Auto) 70.9 Lymph % (Auto) 17.5 L Kinney % (Auto) 10.1 Eos % (Auto) 0.7 Baso % (Auto) 0.4 Lymph # (Auto) 1.0 L Kinney # (Auto) 0.6 Eos # (Auto) 0.0 Baso # (Auto) 0.0 Abs Immat Gran (auto) 0.02 Absolute Neuts (auto) 4.0 Absolute Nucleated RBC 0.000 Nucleated RBC % (auto) 0.0 Hold Blue Top SEE NOTE Anion Gap Estim Creat Clear Calc Estimated GFR Random Glucose Calcium Troponin I High Sens 26.6 B-Natriuretic Peptide 802 H Digoxin COVID-19 ([facility]CCA) COVID-19 Clin Com 03/03/21 03/03/21 03/03/21 16:33 16:43 16:43 MCV MCH MCHC RDW Plt Count MPV Immature Gran % (Auto) Neut % (Auto) Lymph % (Auto) Kinney % (Auto) Eos % (Auto) Baso % (Auto) Lymph # (Auto) Kinney # (Auto) Eos # (Auto) Baso # (Auto) Abs Immat Gran (auto) Absolute Neuts (auto) Absolute Nucleated RBC Nucleated RBC % (auto) Hold Blue Top Anion Gap 15 Estim Creat Clear Calc 66.1 Estimated GFR 42 Random Glucose 114 Calcium 8.9 Troponin I High Sens B-Natriuretic Peptide Digoxin 0.4 L COVID-19 ([facility]BECCA) Negative COVID-19 Clin Com See Note Imaging Radiologist's Impressions: Impressions Chest X-Ray 03/03/21 15:59 IMPRESSION: Mild CHF appears mildly increased compared to the previous study. Knee X-Ray 03/03/21 16:05 IMPRESSION: [id number] tricompartmental degenerative joint changes without acute abnormality. Assessment and Plan (1) Acute exacerbation of CHF (congestive heart failure): Status: Acute (2) Knee pain: Status: Acute This is a 60-year-old male with past medical history of CHF, as well as recent CVA presents the hospital shortness of breath, and right knee pain # acute CHF exacerbation - has a baseline ejection fraction of 25-30% with severely decreased left ventricular systolic function - does not appear to be on any baseline diuretic - reports compliance with a low-sodium diet - 26.6 with no chest pain, no EKG changes Plan: - will start him on IV 40 Lasix - strict I&O, low-sodium diet, daily weight - consult cardiology - given the most recent echocardiogram was done in December, I will not repeat # right knee pain - patient reports he had a fall about a week and half ago and has had severe pa in of his right knee - has had multiple x-rays with no definitive result -will consult orthopedic surgery # CVA - about a month ago had stroke with residual right hemiparesis - no new weakness Continue atorvastatin, Xarelto # atrial fibrillation - continue digoxin, carvedilol, and Xarelto # hypothyroidism - continue levothyroxine # depression - continue sertraline DVT prophylaxis: Xarelto
[2021-03-03] MEDS: Atorvastatin Calcium 80 MG TABLET PO (22:54)
[2021-03-03] MEDS: Zolpidem Tartrate 5 MG TABLET 10 MG PO (22:54)
[2021-03-03] MEDS: carvediloL 3.125 MG TABLET 6.25 MG PO (22:55)
[2021-03-03] MEDS: Tamsulosin HCL 0.4 MG CAPSULE PO (22:56)
[2021-03-03] MEDS: Melatonin 3 MG TABLET PO (22:56)
[2021-03-03] MEDS: Furosemide 40 MG/4 ML VIAL IVPUSH (22:57)
--- NOTE | 2021-03-03 22:59 | PC.NURSE ---
pt medicated as per emar. pt awaiting room assignment. Pt remains on monitor, vs obtained. Pt appears calmer sitting at edge of bed. Pt alert, respirations easy, n/l. pt remains on NC 3L. Pt in NAD>
--- NOTE | 2021-03-03 23:16 | PC.NURSE ---
FLOOR UNABLE TO TAKE REPORT AT THIS TIME.
--- NOTE | 2021-03-03 23:24 | PC.NURSE ---
REPORT GIVEN TO FLOOR.
[2021-03-04] VITALS (20 sets, daily range): BP systolic 102–159; BP diastolic 58–106; PULSE 62–138; RESP 16–32; TEMP 35.6–36.5; O2SAT 90–98
--- NOTE | 2021-03-04 | ECG_ITS ---
Test Reason : HR Blood Pressure : / mmHG Vent. Rate : 109 BPM Atrial Rate : 066 BPM P-R Int : 000 ms QRS Dur : 124 ms QT Int : 374 ms P-R-T Axes : 000 023 210 degrees QTc Int : 503 ms Atrial fibrillation with rapid ventricular response with premature ventricular or aberrantly conducted complexes ST & T wave abnormality, consider lateral ischemia Abnormal ECG When compared to the previous EKG of Premature ventricular complexes are now Present Referred By: Josy Jorge Electronically Signed By:DOUGLAS MCKEON MD
[2021-03-04] MEDS: 0.9 % Sodium Chloride Flush 3 ML SYRINGE IVFLUSH ×3 (00:01→17:11)
[2021-03-04] MEDS: Isosorbide Dinitrate 20 MG TABLET PO ×4 (00:01→21:11)
[2021-03-04] MEDS: diphenhydrAMINE HCL 50 MG/ML VIAL 25 MG IVPUSH (00:53)
[2021-03-04] MEDS: Metoprolol Tartrate 5 MG/5 ML VIAL IVPUSH (00:54)
--- NOTE | 2021-03-04 01:35 | PC.NURSE ---
Patient with heart rate 160s to 180s, mild SOB, notified and [facility] RN to floor for EKG and assistance monitoring patient. [facility] RN, Mojgan, administered IV lopressor as ordered with good effect. Patient reports SOB and asking for nebulizer. O2 94% 4L NC. ordered respiratory meds.
[2021-03-04] MEDS: Albuterol/Iprat 2.5/0.5MG 3 ML AMPUL.NEB INHALE ×2 (01:57→16:17)
[2021-03-04] MEDS: Furosemide 40 MG/4 ML VIAL 60 MG IVPUSH (02:03)
--- NOTE | 2021-03-04 03:00 | PC.NURSE ---
[facility] called the floor to report heart rate 130s. Patient was OOB to bathroom with walker and back to bed. [facility] RN Mojgan to room to check on patient.
[2021-03-04 06:09] LABS: MANUAL DIFF FLAG NO
[2021-03-04 06:40] LABS: Anion Gap 12 (12-20); Blood Urea Nitrogen 25 mg/dL (9-16); Carbon Dioxide 25 mmol/L (22-29); Chloride 106 mmol/L (96-108); Creatinine Clr Calc Pharmacy 64.9; Estimated Glomerular Filt Rate 41; Glucose Random 94 mg/dL (60-115); Potassium 4.2 mmol/L (3.3-5.1); Sodium 139 mmol/L (135-145)
[2021-03-04 06:58] LABS: Basophils Percent Auto 0.7 % (0-2); Eosinophils Absolute Auto 0.1 X10*3/uL (0.0-0.4); Eosinophils Percent Auto 1.3 % (0-4); Hematocrit 35.7 % (42-52); Hemoglobin 10.9 g/dl (14.0-18.0); Imm Gran Abs Auto 0.01 X10*3/uL (0.00-0.03); Imm Gran Pct Auto 0.2 % (0.0-0.4); Lymphocytes Percent Auto 19.5 % (20-40); Mean Corpuscular HGB Conc 30.5 g/dl (31.0-36.0); Mean Corpuscular Hemoglobin 24.3 pg (27.0-33.0); Mean Corpuscular Volume 79.5 fL (80-98); Monocytes Absolute Auto 0.5 X10*3/uL (0.1-1.2); Monocytes Percent Auto 8.6 % (2-11); Neutrophils Absolute Auto 3.7 X10*3/uL (2.0-8.3); Neutrophils Percent Auto 69.7 % (45-73); Platelet Count 156 X10*3/uL (160-400); Red Blood Count 4.49 X10*6/uL (4.60-5.80); Red Cell Distribution Width 21.7 % (11.0-16.0); White Blood Count 5.3 X10*3/uL (4.8-10.8)
[2021-03-04] MEDS: carvediloL 3.125 MG TABLET 6.25 MG PO ×2 (08:20→21:11)
[2021-03-04] MEDS: Sertraline HCL 50 MG TABLET PO (08:20)
[2021-03-04] MEDS: lisinopriL 5 MG TABLET PO (08:20)
[2021-03-04] MEDS: Rivaroxaban 15 MG TABLET PO (08:20)
[2021-03-04] MEDS: Furosemide 40 MG/4 ML VIAL IVPUSH (08:20)
--- NOTE | 2021-03-04 08:52 | P.EN_ITS ---
Event Note Date of Service: 03/04/21 Event Note: X-rays of the right knee ordered. Awaiting films to further evalua te.
--- NOTE | 2021-03-04 09:35 | PM.CNOR ---
History of Present Illness HPI Consult date: 03/04/21 Consult reason: joint pain Chief complaint: CHF Exacerbation Narrative: Mr. Espinal is a 60 yo male who has been admitted to the medicine service for a CHF exacerbation. He states that 2 months ago he suffered a stroke and as a result he has weakness from right sided hemiparesis. He is non ambulatory at this time. He states that about a week and a half ago he sustained a fall while getting out of a vehicle and landed on his knee. Ever since then he has had increased pain. Orthopedics has been consulted to further evaluate. Review of Systems Review of Systems: Yes all other systems are reviewed and are negative PMFSH Past Medical History Medical History (Updated 03/04/21 @ 09:49 by Madisyn Cortez PA-C) Asthma Atrial fibrillation with RVR Chronic renal failure, stage 3 (moderate) Congestive cardiomyopathy Depression DVT (deep venous thrombosis) Hypothyroidism Nonsustained ventricular tachycardia Social History Social History Do you presently have visiting nurse or other home services: Yes Unable to assess alcohol history related to: Unknown Smoking Status: Unknown if ever smoked Smoked in Last 30 Days: No Patient Interested in Nicotine Replacement: No Patient Given Instructions on How to Stop Smoking: No Second Hand Smoke Exposure: No Use of substances other than those prescribed or required for medical reasons: Unknown Currently Displaying Signs/Symptoms of Drug Intoxication Withdrawal: No Have you been hit, kicked, punched, or otherwise hurt by someone within the past year? If so, by whom?: No Do you feel safe in your current relationship?: No Is there a partner from a previous relationship who is making you feel unsafe now?: No Advance Directives: No Advance Directives Information Provided: Yes Do you have thoughts of harming others: None Do you have a plan to hurt others: No Plan Recently lost weight without trying: No Poor oral hygiene: No service: No Current occupational status: employed Meds Allergies Allergy/AdvReac Type Severity Reaction Status Date / Time No Known Allergies Allergy Verified 03/03/21 14:00 Active Medications: Current Medications Generic Name Dose Route Start Last Admin Trade Name Freq PRN Reason Stop Dose Admin Acetaminophen 650 mg 03/03/21 21:02 Acetaminophen 325 Mg Tablet PO Q6H PRN Pain, Mild (Pain Scale 1-3) Albuterol/Ipratropium 3 ml 03/04/21 01:36 03/04/21 01:57 Albuterol/Iprat 2.5/0.5mg 3 Ml Ampul.Neb INHALE 3 ml RQ4H PRN Administration Shortness of Breath/Wheezing Atorvastatin Calcium 80 mg 03/03/21 21:02 03/03/21 22:54 Atorvastatin Calcium 80 Mg Tablet PO 80 mg BEDTIME [facility] Administration Carvedilol 6.25 mg 03/03/21 21:02 03/04/21 08:20 Carvedilol 3.125 Mg Tablet PO 6.25 mg BID [facility] Administration Protocol Digoxin 0.125 mg 03/04/21 09:00 Digoxin 0.125 Mg Tablet PO [id number]@0900 [facility] Furosemide 40 mg 03/03/21 21:02 03/04/21 08:20 Furosemide 40 Mg/4 Ml Vial IVPUSH 40 mg Q12H [facility] Administration Protocol Isosorbide Dinitrate 20 mg 03/03/21 21:02 03/04/21 08:19 Isosorbide Dinitrate 20 Mg Tablet PO 20 mg TID [facility] Administration Protocol Levothyroxine Sodium 112 mcg/ 137 mcg 03/04/21 06:00 03/04/21 06:34 Levothyroxine Sodium 25 mcg PO Not Given DAILY@0600 [facility] Lisinopril 5 mg 03/04/21 09:00 03/04/21 08:20 Lisinopril 5 Mg Tablet PO 5 mg DAILY [facility] Administration Protocol Melatonin 3 mg 03/03/21 21:02 03/03/21 22:56 Melatonin 3 Mg Tablet PO 3 mg BEDTIME [facility] Administration Ondansetron HCl 4 mg 03/03/21 21:02 Ondansetron Hcl 4 Mg/2 Ml Vial IVPUSH Q8H PRN Nausea and Vomiting Potassium Chloride 10 meq 03/03/21 21:02 03/04/21 08:19 Potassium Chloride Er 10 Meq Capsule.Er PO 10 meq BID [facility] Administration Rivaroxaban 15 mg 03/04/21 09:00 03/04/21 08:20 Rivaroxaban 15 Mg Tablet PO 15 mg DAILY [facility] Administration Sertraline HCl 50 mg 03/04/21 09:00 03/04/21 08:20 Sertraline Hcl 50 Mg Tablet PO 50 mg DAILY [facility] Administration Sodium Chloride 3 ml 03/04/21 00:00 03/04/21 08:22 0.9 % Sodium Chloride Flush 3 Ml Syringe IVFLUSH 3 ml QSHIFT [facility] Administration Tamsulosin HCl 0.4 mg 03/03/21 21:02 03/03/21 22:56 Tamsulosin Hcl 0.4 Mg Capsule PO 0.4 mg BEDTIME [facility] Administration Zolpidem Tartrate 10 mg 03/03/21 21:02 03/03/21 22:54 Zolpidem Tartrate 5 Mg Tablet PO 10 mg BEDTIME [facility] Administration Home Medications Medication Instructions Recorded Confirmed Last Taken Type bumetanide 1 tab PO DAILY 01/06/21 03/03/21 Unknown History ferrous sulfate 325 tab PO DAILY 01/06/21 03/03/21 Unknown History levothyroxine 1 tab PO DAILY 01/06/21 03/03/21 Unknown History potassium chloride 1 tab PO BID 01/06/21 03/03/21 Unknown History tamsulosin 1 cap PO BEDTIME 01/06/21 03/03/21 Unknown History zolpidem 1 tab PO BEDTIME 01/06/21 03/03/21 Unknown History atorvastatin 1 tab PO BEDTIME 03/03/21 03/03/21 Unknown History carvedilol 6.25 mg PO BID 03/03/21 03/03/21 Unknown History digoxin 125 mcg PO USEASDIRECTD 03/03/21 03/03/21 Unknown History isosorbide dinitrate 20 mg PO TID 03/03/21 03/03/21 Unknown History melatonin 3 mg PO BEDTIME 03/03/21 03/03/21 Unknown History sertraline 1 tab PO DAILY 03/03/21 03/03/21 Unknown History Physical Exam Vital Signs: Vital Signs: Last Vital Signs Temp 97.3 F 03/04/21 08:00 Pulse 96 03/04/21 08:00 Resp 16 03/04/21 08:00 BP 149/106 H 03/04/21 08:00 Pulse Ox 96 03/04/21 08:00 Body Mass Index 38.2 Const: General: cooperative, healthy appearing and no acute distress Resp: Effort & Inspection: normal respiratory effort and able to speak in complete sentences Cardio: Rate: regular rate Peripheral pulses: Peripheral pulses 2+ throughout GI: Palpation (GI): Soft to palpation Skin: Lesions: no lesions Rashes: no rashes Extrem: Other: Right knee normal to inspection. No erythema, edema, joint effusion, or ecchymosis. No tenderness to palpation of the medial or lateral joint lines. Patient is able to actively flex and extend to end ROM of the right knee with no difficulty. Results Labs Result Diagrams: 03/04/21 05:40 03/04/21 05:40 Labs: Abnormal lab results 03/03/21 03/03/21 03/03/21 Range/Units 16:05 16:05 16:43 RBC 4.47 L (4.60-5.80) X10*6/uL Hgb 11.1 L (14.0-18.0) g/dl Hct 35.6 L (42-52) % MCV 79.6 L (80-98) fL MCH 24.8 L (27.0-33.0) pg MCHC (31.0-36.0) g/dl RDW 21.8 H (11.0-16.0) % Plt Count 149 L (160-400) X10*3/uL Lymph % (Auto) 17.5 L (20-40) % Lymph # (Auto) 1.0 L (1.2-4.9) X10*3/uL Chloride 109 H (96-108) mmol/L Carbon Dioxide 21 L (22-29) mmol/L BUN 23 H (9-16) mg/dL Creatinine 1.69 H (0.5-1.4) mg/dL B-Natriuretic Peptide 802 H (<100) pg/mL Digoxin (0.8-2.0) ng/mL 03/03/21 03/04/21 03/04/21 Range/Units 16:43 05:40 05:40 RBC 4.49 L (4.60-5.80) X10*6/uL Hgb 10.9 L (14.0-18.0) g/dl Hct 35.7 L (42-52) % MCV 79.5 L (80-98) fL MCH 24.3 L (27.0-33.0) pg MCHC 30.5 L (31.0-36.0) g/dl RDW 21.7 H (11.0-16.0) % Plt Count 156 L (160-400) X10*3/uL Lymph % (Auto) 19.5 L (20-40) % Lymph # (Auto) 1.0 L (1.2-4.9) X10*3/uL Chloride (96-108) mmol/L Carbon Dioxide (22-29) mmol/L BUN 25 H (9-16) mg/dL Creatinine 1.72 H (0.5-1.4) mg/dL B-Natriuretic Peptide (<100) pg/mL Digoxin 0.4 L (0.8-2.0) ng/mL H & H 03/03/21 03/04/21 Range/Units 16:05 05:40 Hgb 11.1 L 10.9 L (14.0-18.0) g/dl Hct 35.6 L 35.7 L (42-52) % All other labs normal. Assessment and Plan (1) Osteoarthritis of right knee: Status: Acute Mr. Espinal is a 60 yo male who has been admitted to the medicine service for a CHF exacerbation. He states that 2 months ago he suffered a stroke and as a result he has weakness from right sided hemiparesis. He is non ambulatory at this time. He states that about a week and a half ago he sustained a fall while getting out of a vehicle and landed on his knee. Ever since then he has had increased pain. X-rays obtained today reveal no acute fracture or dislocation but he does have tricompartmental arthritis with a small effusion. He may followup outpatient for further osteoarthritis treatment. No further orthopedic treatment is needed at this time for his right knee. Procedures Date of Service Date of Service: 03/04/21
[2021-03-04] MEDS: Digoxin 0.125 MG TABLET PO (10:15)
--- NOTE | 2021-03-04 11:27 | P.PNIM_ITS ---
Subjective Subjective Date of Service: 03/04/21 Interval History: Patient seen and examined at bedside. He had increased shortness of breath overnight received an extra dose of 60 mg IV Lasix, reports he currently feels the same, no cough, no fever or chills overnight. No chest pain, no palpitations, no abdominal pain nausea or vomiting, he has putting out good urine. With no urinary symptoms. Physical Exam Vital Signs: Vital Signs: Last Vital Signs Temp 97.3 F 03/04/21 08:00 Pulse 94 03/04/21 10:15 Resp 16 03/04/21 08:00 BP 149/106 H 03/04/21 08:00 Pulse Ox 96 03/04/21 08:00 Body Mass Index 38.2 Const: General: cooperative and no acute distress Orie ntation/consciousness: patient oriented x3 Eyes: General: appearance normal, both eyes and all related structures Resp: Effort & Inspection: normal respiratory effort and able to speak in complete sentences Cardio: Rate: regular rate Rhythm: regular rhythm GI: Palpation (GI): Soft to palpation Auscultation: normal bowel sounds Skin: General skin exam: no rashes or lesions noted Neuro: General: patient oriented x3 Cognition (Neuro): normal cognition Extrem: General: Yes normal to inspection and Yes no pedal edema Objective Data Current Medications Generic Name Dose Route Start Last Admin Trade Name Flakitoq PRN Reason Stop Dose Admin Acetaminophen 650 mg 03/03/21 21:02 Acetaminophen 325 Mg Tablet PO Q6H PRN Pain, Mild (Pain Scale 1-3) Albuterol/Ipratropium 3 ml 03/04/21 01:36 03/04/21 01:57 Albuterol/Iprat 2.5/0.5mg 3 Ml Ampul.Neb INHALE 3 ml RQ4H PRN Administration Shortness of Breath/Wheezing Atorvastatin Calcium 80 mg 03/03/21 21:02 03/03/21 22:54 Atorvastatin Calcium 80 Mg Tablet PO 80 mg BEDTIME ASIA Administration Bumetanide 2 mg 03/04/21 11:30 Bumetanide 1 Mg/4 Ml Vial IVPUSH BID ASIA Protocol Carvedilol 6.25 mg 03/03/21 21:02 03/04/21 08:20 Carvedilol 3.125 Mg Tablet PO 6.25 mg BID ASIA Administration Protocol Digoxin 0.125 mg 03/04/21 09:00 03/04/21 10:15 Digoxin 0.125 Mg Tablet PO 0.125 mg [id number] ASIA Administration Isosorbide Dinitrate 20 mg 03/03/21 21:02 03/04/21 08:19 Isosorbide Dinitrate 20 Mg Tablet PO 20 mg TID ASIA Administration Protocol Levothyroxine Sodium 112 mcg/ 137 mcg 03/04/21 06:00 03/04/21 06:34 Levothyroxine Sodium 25 mcg PO Not Given DAILY@0600 [facility] Melatonin 3 mg 03/03/21 21:02 03/03/21 22:56 Melatonin 3 Mg Tablet PO 3 mg BEDTIME ASIA Administration Ondansetron HCl 4 mg 03/03/21 21:02 Ondansetron Hcl 4 Mg/2 Ml Vial IVPUSH Q8H PRN Nausea and Vomiting Potassium Chloride 10 meq 03/03/21 21:02 03/04/21 08:19 Potassium Chloride Er 10 Meq Capsule.Er PO 10 meq BID ASIA Administration Rivaroxaban 15 mg 03/04/21 09:00 03/04/21 08:20 Rivaroxaban 15 Mg Tablet PO 15 mg DAILY ASIA Administration Sertraline HCl 50 mg 03/04/21 09:00 03/04/21 08:20 Sertraline Hcl 50 Mg Tablet PO 50 mg DAILY [facility] Administration Sodium Chloride 3 ml 03/04/21 00:00 03/04/21 08:22 0.9 % Sodium Chloride Flush 3 Ml Syringe IVFLUSH 3 ml QSHIFT [facility] Administration Spironolactone 12.5 mg 03/04/21 11:30 Spironolactone 25 Mg Tablet PO DAILY [facility] Protocol Tamsulosin HCl 0.4 mg 03/03/21 21:02 03/03/21 22:56 Tamsulosin Hcl 0.4 Mg Capsule PO 0.4 mg BEDTIME ASIA Administration Valsartan 20 mg 03/04/21 11:30 Valsartan 40 Mg Tablet PO BID [facility] Protocol Zolpidem Tartrate 10 mg 03/03/21 21:02 03/03/21 22:54 Zolpidem Tartrate 5 Mg Tablet PO 10 mg BEDTIME [facility] Administration Labs CBC & Chem 7: 03/04/21 05:40 03/04/21 05:40 Assessment and Plan (1) Acute exacerbation of CHF (congestive heart failure): Status: Acute (2) Cerebrovascular accident: Status: Acute (3) Osteoarthritis of right knee: Status: Acute Assessment and Plan: This is a 60-year-old male with past medical history of CHF, as well as recent CVA presents the hospital with shortness of breath, and right knee pain # acute CHF exacerbation - has a baseline ejection fraction of 25-30% with severely decreased left ventricular systolic function from echo done on 12/31 - currently no chest pain - correction to H&P, pt is on bumex 1mg daily at home and reported compliance - 1500 UO since admission - discussed with field operations technician, will switch lasix to bumex 2 mg iv bid - discontinue lisinopril, start aldactone and valsartan - continue low sodium diet, strict I&O, and daily weight - plan for op cardiology follow up # right knee pain - patient reports he had a fall about a week and half ago and has had severe pain of his right knee - seen by ortho this Am, plan for op follow up # CVA - residual right hemiparesis - no new weakness - Continue atorvastatin, Xarelto # atrial fibrillation - continue digoxin, carvedilol, and Xarelto # hypothyroidism - continue levothyroxine # depression - continue sertraline DVT prophylaxis: Xarelto
[2021-03-04 12:49] LABS: Magnesium 2.2 mg/dL (1.6-2.6)
--- NOTE | 2021-03-04 12:50 | PM.CNCAR ---
History of Present Illness History of Present Illness Date of Service: 03/04/21 Requesting physician: Josy Jorge Consult reason: congestive heart failure Chief complaint: CHF Exacerbation Narrative: I was asked to see Devan in cardiology consultation today for decompensated congestive heart failure. He is a 60-year-old male with prior history of what appears to be nonischemic cardiomyopathy for at least 15 years being managed as outpatient with last echocardiogram LV systolic function in December when he was admitted with stroke of 25-30%. Stroke happen in the setting of withdrawal of oral anticoagulation therapy with Xarelto as outpatient urologic procedure. Patient since then has been struggling with his right side did weakness. He also has some speech disturbances. He came mainly because he fell 1 and half weeks ago and has stiffness in his right knee and pain in his right knee. He is very bothered by his symptoms. However he also says he has been noticing increasing shortness of breath and some swelling over the last few weeks and having increasing fatigue. He has been taking all his medications. In the past he says he has had atrial fibrillation inappropriate discharges to his ICD due to over exertion. He has been told to avoid over exertion. 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 However he did have NYHA class 2 symptoms. However he did not have any recent admissions with heart failure as much as he could tell me. However his history somewhat limited. Since admission he was diuresed with Lasix IV and required overnight increase Lasix therapy due to work of breathing. He has put out about 1600 cc. He still appears to be short of breath this morning. However denies any chest pain and mostly concerned about his knee pain. At home he is on carvedilol, digoxin, isosorbide dinitrate, lisinopril, Xarelto, atorvastatin therapy. Denies any recent palpitations, lightheadedness, ICD discharge. 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 Review of Systems Constitutional: Constitutional: Denies chills, Denies fever(s), Reports frequent falls, Reports weakness and Reports weight loss Cardiovascular: Cardiovascular: Denies chest pain, Reports leg edema, Denies lightheadedness, Denies Loss of Consciousness, Denies palpitations, Reports dyspnea on exertion and Reports orthopnea Respiratory: Respiratory: Reports no additional respiratory complaints and Reports dyspnea on exertion Gastrointestinal: Gastrointestinal: Reports no additional gastrointestinal complaints Musculoskeletal: Musculoskeletal: Reports arthralgias (Right knee) Neurologic: Reports Abnormal speech present, Reports frequent falls, Reports lack of coordination, Reports focal weakness (Right upper and lower extremity) and Reports weakness Psychiatric: Psychiatric: Reports no additional psychiatric complaints Endocrine: Endocrine: Reports no additional endocrine complaints and Denies palpitations Hematologic/Lymphatic: Hematologic/Lymphatic: Reports no additional hematologic/lymphatic complaints [facility] Past Medical History Medical History (Updated 03/04/21 @ 13:02 by Zander Magana MD) Asthma Atrial fibrillation with RVR Chronic renal failure, stage 3 (moderate) Congestive cardiomyopathy Depression DVT (deep venous thrombosis) Hypothyroidism Nonsustained ventricular tachycardia Social History Social History Do you presently have visiting nurse or other home services: Yes Unable to assess alcohol history related to: Unknown Smoking Status: Unknown if ever smoked Smoked in Last 30 Days: No Patient Interested in Nicotine Replacement: No Patient Given Instructions on How to Stop Smoking: No Second Hand Smoke Exposure: No Use of substances other than those prescribed or required for medical reasons: Unknown Currently Displaying Signs/Symptoms of Drug Intoxication Withdrawal: No Have you been hit, kicked, punched, or otherwise hurt by someone within the past year? If so, by whom?: No Do you feel safe in your current relationship?: No Is there a partner from a previous relationship who is making you feel unsafe now?: No Advance Directives: No Advance Directives Information Provided: Yes Do you have thoughts of harming others: None Do you have a plan to hurt others: No Plan Recently lost weight without trying: No Poor oral hygiene: No service: No Current occupational status: employed Meds Allergies Allergy/AdvReac Type Severity Reaction Status Date / Time No Known Allergies Allergy Verified 03/03/21 14:00 Active Medications: Current Medications Generic Name Dose Route Start Last Admin Trade Name Freq PRN Reason Stop Dose Admin Acetaminophen 650 mg 03/03/21 21:02 Acetaminophen 325 Mg Tablet PO Q6H PRN Pain, Mild (Pain Scale 1-3) Albuterol/Ipratropium 3 ml 03/04/21 01:36 03/04/21 01:57 Albuterol/Iprat 2.5/0.5mg 3 Ml Ampul.Neb INHALE 3 ml RQ4H PRN Administration Shortness of Breath/Wheezing Atorvastatin Calcium 80 mg 03/03/21 21:02 03/03/21 22:54 Atorvastatin Calcium 80 Mg Tablet PO 80 mg BEDTIME ASIA Administration Bumetanide 2 mg 03/04/21 11:30 Bumetanide 1 Mg/4 Ml Vial IVPUSH BID@0800,1800 [facility] Protocol Carvedilol 6.25 mg 03/03/21 21:02 03/04/21 08:20 Carvedilol 3.125 Mg Tablet PO 6.25 mg BID ASIA Administration Protocol Digoxin 0.125 mg 03/04/21 09:00 03/04/21 10:15 Digoxin 0.125 Mg Tablet PO 0.125 mg [id number] ASIA Administration Isosorbide Dinitrate 20 mg 03/03/21 21:02 03/04/21 08:19 Isosorbide Dinitrate 20 Mg Tablet PO 20 mg TID ASIA Administration Protocol Levothyroxine Sodium 112 mcg/ 137 mcg 03/04/21 06:00 03/04/21 06:34 Levothyroxine Sodium 25 mcg PO Not Given DAILY@0600 [facility] Melatonin 3 mg 03/03/21 21:02 03/03/21 22:56 Melatonin 3 Mg Tablet PO 3 mg BEDTIME ASIA Administration Ondansetron HCl 4 mg 03/03/21 21:02 Ondansetron Hcl 4 Mg/2 Ml Vial IVPUSH Q8H PRN Nausea and Vomiting Potassium Chloride 10 meq 03/03/21 21:02 03/04/21 08:19 Potassium Chloride Er 10 Meq Capsule.Er PO 10 meq BID ASIA Administration Rivaroxaban 15 mg 03/04/21 09:00 03/04/21 08:20 Rivaroxaban 15 Mg Tablet PO 15 mg DAILY ASIA Administration Sertraline HCl 50 mg 03/04/21 09:00 03/04/21 08:20 Sertraline Hcl 50 Mg Tablet PO 50 mg DAILY ASIA Administration Sodium Chloride 3 ml 03/04/21 00:00 03/04/21 08:22 0.9 % Sodium Chloride Flush 3 Ml Syringe IVFLUSH 3 ml QSHIFT ASIA Administration Spironolactone 12.5 mg 03/04/21 12:00 Spironolactone 25 Mg Tablet PO DAILY [facility] Protocol Tamsulosin HCl 0.4 mg 03/03/21 21:02 05/22/21 22:56 Tamsulosin Hcl 0.4 Mg Capsule PO 0.4 mg BEDTIME [facility] Administration Valsartan 20 mg 03/04/21 12:00 Valsartan 40 Mg Tablet PO BID [facility] Protocol Zolpidem Tartrate 10 mg 03/03/21 21:02 03/03/21 22:54 Zolpidem Tartrate 5 Mg Tablet PO 10 mg BEDTIME [facility] Administration Home Medications Medication Instructions Recorded Confirmed Last Taken Type bumetanide 1 tab PO DAILY 01/06/21 03/03/21 Unknown History ferrous sulfate 325 tab PO DAILY 01/06/21 03/03/21 Unknown History levothyroxine 1 tab PO DAILY 01/06/21 03/03/21 Unknown History potassium chloride 1 tab PO BID 01/06/21 03/03/21 Unknown History tamsulosin 1 cap PO BEDTIME 01/06/21 03/03/21 Unknown History zolpidem 1 tab PO BEDTIME 01/06/21 03/03/21 Unknown History atorvastatin 1 tab PO BEDTIME 03/03/21 03/03/21 Unknown History carvedilol 6.25 mg PO BID 03/03/21 03/03/21 Unknown History digoxin 125 mcg PO USEASDIRECTD 03/03/21 03/03/21 Unknown History isosorbide dinitrate 20 mg PO TID 03/03/21 03/03/21 Unknown History melatonin 3 mg PO BEDTIME 03/03/21 03/03/21 Unknown History sertraline 1 tab PO DAILY 03/03/21 03/03/21 Unknown History Physical Exam Vital Signs: Vital Signs: Last Vital Signs Temp 97.3 F 03/04/21 11:40 Pulse 62 03/04/21 11:40 Resp 30 H 03/04/21 11:40 BP 139/66 03/04/21 11:40 Pulse Ox 97 03/04/21 11:40 Body Mass Index 38.2 Const: General: cooperative, alert, awake and acute distress moderate and respiratory Nutritional Appearance: obese Orientation/consciousness: patient oriented x3 HENMT: Head: Yes normocephalic and Yes atraumatic Neck: Neck: Yes trachea midline, Yes supple and Yes JVD Resp: Effort & Inspection: normal respiratory effort Auscultation: clear to auscultation bilaterally Cardio: Palpation: abnormal PMI displaced PMI Rhythm: abnormal rhythm irregularly irregular Heart sounds: S1 normal heart sound present and S2 normal heart sound present GI: Auscultation: normal bowel sounds Skin: General skin exam: no rashes or lesions noted Neuro: General: patient oriented x3 and other (Right hemiparesis) Speech: Abnormal speech present Extrem: General: No clubbing, No cyanosis and Yes edema Results Labs and Meds Result diagrams: 03/04/21 05:40 03/04/21 05:40 Lab results: Laboratory Results - last 24 hr 03/03/21 03/03/21 03/03/21 16:05 16:05 16:05 WBC 5.7 RBC 4.47 L Hgb 11.1 L Hct 35.6 L MCV 79.6 L MCH 24.8 L MCHC 31.2 RDW 21.8 H Plt Count 149 L MPV Not Reportable Immature Gran % (Auto) 0.4 Neut % (Auto) 70.9 Lymph % (Auto) 17.5 L Frontier % (Auto) 10.1 Eos % (Auto) 0.7 Baso % (Auto) 0.4 Lymph # (Auto) 1.0 L Frontier # (Auto) 0.6 Eos # (Auto) 0.0 Baso # (Auto) 0.0 Abs Immat Gran (auto) 0.02 Absolute Neuts (auto) 4.0 Absolute Nucleated RBC 0.000 Nucleated RBC % (auto) 0.0 Hold Blue Top SEE NOTE Sodium Potassium Chloride Carbon Dioxide Anion Gap BUN Creatinine Estim Creat Clear Calc Estimated GFR Random Glucose Calcium Magnesium Troponin I High Sens 26.6 B-Natriuretic Peptide 802 H Digoxin COVID-19 (REBECCA) COVID-19 Clin Com 03/03/21 03/03/21 03/03/21 16:33 16:43 16:43 WBC RBC Hgb Hct MCV MCH MCHC RDW Plt Count MPV Immature Gran % (Auto) Neut % (Auto) Lymph % (Auto) Frontier % (Auto) Eos % (Auto) Baso % (Auto) Lymph # (Auto) Frontier # (Auto) Eos # (Auto) Baso # (Auto) Abs Immat Gran (auto) Absolute Neuts (auto) Absolute Nucleated RBC Nucleated RBC % (auto) Hold Blue Top Sodium 141 Potassium 4.3 Chloride 109 H Carbon Dioxide 21 L Anion Gap 15 BUN 23 H Creatinine 1.69 H Estim Creat Clear Calc 66.1 Estimated GFR 42 Random Glucose 114 Calcium 8.9 Magnesium Troponin I High Sens B-Natriuretic Peptide Digoxin 0.4 L COVID-19 (REBECCA) Negative COVID-19 Clin Com See Note 03/04/21 03/04/21 03/04/21 05:40 05:40 12:16 WBC 5.3 RBC 4.49 L Hgb 10.9 L Hct 35.7 L MCV 79.5 L MCH 24.3 L MCHC 30.5 L RDW 21.7 H Plt Count 156 L MPV Not Reportable Immature Gran % (Auto) 0.2 Neut % (Auto) 69.7 Lymph % (Auto) 19.5 L Frontier % (Auto) 8.6 Eos % (Auto) 1.3 Baso % (Auto) 0.7 Lymph # (Auto) 1.0 L Frontier # (Auto) 0.5 Eos # (Auto) 0.1 Baso # (Auto) 0.0 Abs Immat Gran (auto) 0.01 Absolute Neuts (auto) 3.7 Absolute Nucleated RBC 0.000 Nucleated RBC % (auto) 0.0 Hold Blue Top Sodium 139 Potassium 4.2 Chloride 106 Carbon Dioxide 25 Anion Gap 12 BUN 25 H Creatinine 1.72 H Estim Creat Clear Calc 64.9 Estimated GFR 41 Random Glucose 94 Calcium 9.0 Magnesium 2.2 Troponin I High Sens B-Natriuretic Peptide Digoxin COVID-19 (REBECCA) COVID-19 Clin Com EKG shows from this morning atrial fibrillation with with nonspecific ST T wave changes. EKG from yesterday shows atrial fibrillation with excellent junctional rhythm. Imaging Radiologist's impression: Impressions Chest X-Ray 03/03/21 15:59 IMPRESSION: Mild CHF appears mildly increased compared to the previous study. Knee X-Ray 03/03/21 16:05 IMPRESSION: [id number] tricompartmental degenerative joint changes without acute abnormality. Knee X-Ray 03/04/21 09:15 IMPRESSION: Tricompartmental arthritis. No visible fracture or dislocation is seen. Small knee effusion. Assessment and Plan (1) Acute exacerbation of CHF (congestive heart failure): Status: Acute Patient with known prior history of cardiomyopathy and congestive heart failure presents with worsening heart failure syndrome. He actually presented with right knee pain and stiffness. He is still complaining of the same however remains short of breath and fluid overloaded. Would switch his diuretic therapy to Bumex 2 mg b.i.d.. Strict intake and output chart needs to be pursued. Continue to follow renal function by BMP and BNP regularly. Continue current neurohormonal modulation with carvedilol. Add spironolactone 12.5 mg to his regimen. Closely follow his potassium level. Also will switch his lisinopril therapy to Diovan 20 mg twice a day to eventually hopefully switch to Entresto therapy as outpatient. Continue digoxin therapy for now both heart failure as well as AFib, see below. 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 (2) Atrial fibrillation with RVR: Status: Inactive Atrial fibrillation rapid ventricular response, not sure if this is chronic for some time. This is recent and persistent in the recent past consideration for rhythm control can be pursued. Will need to obtain old records. Meanwhile will continue digoxin for rate control and carvedilol. Continue to monitor closely. If remains tachycardic may need to further up titrate carvedilol therapy. Given his recent stroke off oral anticoagulation therapy, continue to use Xarelto. Continue to monitor renal function closely. Will follow with you. Thank you for allowing us to partake in his care. Greater than 45 minutes was spent in managing his complex care. Procedures Date of Service Date of Service: 03/04/21
[2021-03-04] MEDS: Bumetanide 1 MG/4 ML VIAL 2 MG IVPUSH ×2 (13:03→18:02)
--- NOTE | 2021-03-04 16:34 | MHC.CM.BRN ---
ALANNA CASING INSPECTOR NOTE ELECTRONIC MEDICAL RECORD REVIEWED ALONG WITH CASE DISCUSSED WITH STAFF NURSE , MET WITH PATIENT HE WAS LYING IN BED WITH OXYGEN ON, THE MEETING WAS SHORT HE WAS EASILY TIRED AND HAVING SHORTNESS OF BREATH, HE WAS ABLE TO ANSWER MOST QUESTIONS WITH NODDING OF HIS HEAD , LIVES WITH HIS , RECEIVES [employer] AND [facility] ( BUT COULD NOT TELL ME THE AGENCIES) TRIED TO CALL THE PHONE NUMBER LISTED WHICH BROUGHT ME BACK TO HIS CELL PHONE. HE WAS ADMITTED INPATIENT FOR CHF EXACERBATION . EDUCATED ABOUT THE IMPORTANCE OG HAVING A HCP HCP AND CASE MANAGEMENT TO RE ADDRESS WHEN HE IS ABLE TO DISCHARGE PLAN- CASE MANAGEMENT TO READDRESS SERVICES IN THE HOME, AND HIS STRENGTHS AND WEAKNESS, PCP OSCAR MOORE TRANSP TO BE FURTHER DETERMINED
--- NOTE | 2021-03-04 16:50 | PC.NURSE ---
P episode of 5 beats of Vtach I assessed patient,Dr. Salazar notified E- patient c/o SOB with excercion,no other complaints,Dr. Salazar aware, will monitor
[2021-03-04] MEDS: Melatonin 3 MG TABLET PO (21:09)
[2021-03-04] MEDS: Tamsulosin HCL 0.4 MG CAPSULE PO (21:09)
[2021-03-04] MEDS: Atorvastatin Calcium 80 MG TABLET PO (21:09)
[2021-03-04] MEDS: Valsartan 40 MG TABLET 20 MG PO (21:10)
[2021-03-04] MEDS: Zolpidem Tartrate 5 MG TABLET 10 MG PO (21:12)
[2021-03-05] VITALS (9 sets, daily range): BP systolic 101–142; BP diastolic 69–84; PULSE 66–91; RESP 14–22; TEMP 36.1–36.7; O2SAT 94–100; BMI 37.5
[2021-03-05] MEDS: 0.9 % Sodium Chloride Flush 3 ML SYRINGE IVFLUSH ×4 (00:17→23:43)
[2021-03-05] MEDS: Levothyroxine Sodium 112 MCG, Levothyroxine Sodium 25 MCG 137 MCG PO (05:08)
--- NOTE | 2021-03-05 05:45 | MHC.PIE ---
P. 18 BEAT VTACH I.PT ASLEEP.ASYMPTOMATIC WHEN AWAKENED.DENIES PAIN/PALPITATIONS. NOTIFIED.UPDATED MD ON MAG LEVEL DONE YESTERDAY OF 2.2.NO NEW ORDERS PER MD. E.CONT TO MONITOR.
[2021-03-05] MEDS: carvediloL 3.125 MG TABLET 6.25 MG PO ×2 (08:22→20:48)
[2021-03-05] MEDS: Sertraline HCL 50 MG TABLET PO (08:23)
[2021-03-05] MEDS: Rivaroxaban 15 MG TABLET PO (08:23)
[2021-03-05] MEDS: Isosorbide Dinitrate 20 MG TABLET PO ×3 (08:23→20:48)
[2021-03-05] MEDS: Spironolactone 25 MG TABLET 12.5 MG PO (08:24)
[2021-03-05] MEDS: Valsartan 40 MG TABLET 20 MG PO ×2 (08:24→20:49)
[2021-03-05] MEDS: Bumetanide 1 MG/4 ML VIAL 2 MG IVPUSH (08:26)
[2021-03-05] MEDS: Digoxin 0.125 MG TABLET PO (08:36)
--- NOTE | 2021-03-05 10:12 | PM.PNCARD ---
Subjective Subjective Date of Service: 03/05/21 Interval history: He states that he is doing okay. No specific complaints. Review of Systems Review of Systems Yes all other systems are reviewed and are negative Cardiovascular: Reports as per HPI, Reports no additional cardiovascular complaints, Denies acrocyanosis, Denies cool extremities, Denies painful fingertips, Denies chest pain, Denies chest pain at rest, Denies diaphoresis, Denies syncope, Denies irregular heart rhythm, Denies claudication, Denies leg edema, Denies lightheadedness, Denies palpitations and Denies dyspnea Respiratory: Denies dyspnea Denies syncope Endocrine: Denies palpitations Physical Exam Vital Signs: Last Vital Signs Temp 97.6 F 03/05/21 03:37 Pulse 90 03/05/21 08:00 Resp 20 03/05/21 08:00 BP 123/84 03/05/21 08:00 Pulse Ox 98 03/05/21 08:00 Body Mass Index 37.5 Const General: cooperative, comfortable and no acute distress Orientation/consciousness: patient oriented x3 HENMT Other: Unremarkable Neck Neck: Yes normal visual inspection Chest Chest palpation & inspection: normal inspection of the chest Resp Auscultation: clear to auscultation bilaterally, no crackles and no wheezes Cardio Jugular venous distension: no JVD Palpation: normal PMI Heart sounds: S1 normal heart sound present, S2 normal heart sound present, no gallops, no murmurs and no rubs GI Palpation (GI): Soft to palpation Back/Spine/Pelvis Other: unremarkable Skin General skin exam: no rashes or lesions noted Neuro General: patient oriented x3 Extrem General: Yes no clubbing, cyanosis or edema Psych Mental Status: mental status grossly normal Results Labs and Meds Result diagrams: 03/04/21 05:40 03/04/21 05:40 Lab results: Laboratory Results - last 24 hr 03/04/21 12:16 Magnesium 2.2 Progress Note: A&P Assessment and plan (1) Acute on chronic systolic (congestive) heart failure: Status: Acute (2) Persistent atrial fibrillation: Status: Acute (3) Nonsustained ventricular tachycardia: Status: Acute Assessment and Plan: Recent echocardiogram with severely impaired LV function with EF of 25-30%. There was mild mitral regurgitation and moderately dilated left atrium. Cardiac BNP is elevated to 802. High sensitivity troponins are 20 and 26. Creatinine is elevated at 1.7. Clinically, he appears euvolemic. Currently on carvedilol, valsartan, digoxin, Isordil and Bumex. May switch him to oral diuretics. He does have NSVT on telemetry but they are short episodes of 7 beats and 18 beats and he has a functioning ICD in place. 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 Fall Risk Details Current Medications: Current Medications Generic Name Dose Route Start Last Admin Trade Name Freq PRN Reason Stop Dose Admin Acetaminophen 650 mg 03/03/21 21:02 Acetaminophen 325 Mg Tablet PO Q6H PRN Pain, Mild (Pain Scale 1-3) Albuterol/Ipratropium 3 ml 03/04/21 01:36 03/04/21 16:17 Albuterol/Iprat 2.5/0.5mg 3 Ml Ampul.Neb INHALE 3 ml RQ4H PRN Administration Shortness of Breath/Wheezing Atorvastatin Calcium 80 mg 03/03/21 21:02 03/04/21 21:09 Atorvastatin Calcium 80 Mg Tablet PO 80 mg BEDTIME ASIA Administration Bumetanide 2 mg 03/04/21 11:30 03/05/21 08:26 Bumetanide 1 Mg/4 Ml Vial IVPUSH 2 mg BID@0800,1800 ASIA Administration Protocol Carvedilol 6.25 mg 03/03/21 21:02 03/05/21 08:22 Carvedilol 3.125 Mg Tablet PO 6.25 mg BID ASIA Administration Protocol Digoxin 0.125 mg 03/04/21 09:00 03/05/21 08:36 Digoxin 0.125 Mg Tablet PO 0.125 mg SuMoWeThFr@0900 ASIA Administration Isosorbide Dinitrate 20 mg 03/03/21 21:02 03/05/21 08:23 Isosorbide Dinitrate 20 Mg Tablet PO 20 mg TID ASIA Administration Protocol Levothyroxine Sodium 112 mcg/ 137 mcg 03/04/21 06:00 03/05/21 05:08 Levothyroxine Sodium 25 mcg PO 137 mcg DAILY@0600 ASIA Administration Melatonin 3 mg 03/03/21 21:02 03/04/21 21:09 Melatonin 3 Mg Tablet PO 3 mg BEDTIME ASIA Administration Ondansetron HCl 4 mg 03/03/21 21:02 Ondansetron Hcl 4 Mg/2 Ml Vial IVPUSH Q8H PRN Nausea and Vomiting Potassium Chloride 10 meq 03/03/21 21:02 03/05/21 08:23 Potassium Chloride Er 10 Meq Capsule.Er PO 10 meq BID ASIA Administration Rivaroxaban 15 mg 03/04/21 09:00 03/05/21 08:23 Rivaroxaban 15 Mg Tablet PO 15 mg DAILY ASIA Administration Sertraline HCl 50 mg 03/04/21 09:00 03/05/21 08:23 Sertraline Hcl 50 Mg Tablet PO 50 mg DAILY ASIA Administration Sodium Chloride 3 ml 03/04/21 00:00 03/05/21 08:26 0.9 % Sodium Chloride Flush 3 Ml Syringe IVFLUSH 3 ml QSHIFT ASIA Administration Spironolactone 12.5 mg 03/04/21 12:00 03/05/21 08:24 Spironolactone 25 Mg Tablet PO 12.5 mg DAILY ASIA Administration Protocol Tamsulosin HCl 0.4 mg 03/03/21 21:02 03/04/21 21:09 Tamsulosin Hcl 0.4 Mg Capsule PO 0.4 mg BEDTIME ASIA Administration Valsartan 20 mg 03/04/21 12:00 03/05/21 08:24 Valsartan 40 Mg Tablet PO 20 mg BID ASIA Administration Protocol Zolpidem Tartrate 10 mg 03/03/21 21:02 03/04/21 21:12 Zolpidem Tartrate 5 Mg Tablet PO 10 mg BEDTIME ASIA Administration Time Spent With Patient Time: Total time spent is greater than 50% in coordination of care (as documented) at patient's floor/unit and/or counseling patient: Time with patient: less than 15 minutes Procedures Date of Service Date of Service: 03/05/21
--- NOTE | 2021-03-05 10:24 | MHC.CM.PN ---
CALL FROM [facility] OF [facility] ([phone]) TO MAKE [facility] [place]IVE WITH THE AGENCY. PATIENT RECEIVES HOME P.T. REFERRAL PLACED FOR AGENCY TO FOLLOW.
--- NOTE | 2021-03-05 11:06 | MHC.CM.PN ---
NO PLAN FOR DC TODAY. ALBA FROM [facility] UPDATED
--- NOTE | 2021-03-05 12:34 | P.CDIC_ITS ---
CDI Concurrent Query Service Date: 03/05/21 Documentation Clarification: Please clarify if you are treating a proba ble/suspected/likely or confirmed: Acute on Chronic Systolic CHF Acute Systolic CHF Other CHF, please specify if known Acute on Chronic CHF Provider Response: Other Other Diagnosis: Acute on Chronic HFrEF PLEASE DO NOT DELETE/MODIFY EXISTING CONTENT Additional information is needed in order to code to the highest accuracy and appropriate Severity of Illness (SOI). Please clarify the information noted below in your progress notes and discharge summary. Risk Factors/Clinical Indicators/Treatments 60 year old male admitted with dyspnea CXR: Mild CHF Per H&P: Acute Exacerbation CHF EF 25 - 30 % with severely decreased LV function PMH: CHF Treated with IV diuretic, cardiology consult CDS: Arianna Gerard RN Contact Number: [phone] Please Review the information above and exercise your independent professional judgment in responding to the query. If you concur, pleas document in the PROGRESS NOTES and DISCHARGE SUMMARY. If you do not agree with the query, please document in the query above. THIS QUERY IS PART OF THE PERMANENT MEDICAL RECORD
--- NOTE | 2021-03-05 14:23 | HO.PM.IMPN ---
Subjective Subjective Date of Service: 03/05/21 Interval History: seen and examined this AM feeling slowly better in regards to his breathing, but still not at baseline. reports RUELAS with exertion still on oxygen ROS General - no fevers or chills Cardiovascular - no chest pain Respiratory - +SOB Abdominal- no abdominal pain, nausea, vomiting, diarrhea Physical Exam Vital Signs: Vital Signs: Last Vital Signs Temp 98.0 F 03/05/21 12:03 Pulse 66 03/05/21 14:01 Resp 18 03/05/21 12:03 BP 142/82 H 03/05/21 14:01 Pulse Ox 94 03/05/21 14:01 Body Mass Index 37.5 Const: Other: General - no acute distress, appears comfortable Cardiovascular - regular rate and rhythm, S1-S2 Lungs - diminished Abdomen - soft, nontender, no rebound or guarding Extremities - no edema bilaterally Neuro - awake and alert, R troy-plegia Objective Data Current Medications Generic Name Dose Route Start Last Admin Trade Name Freq PRN Reason Stop Dose Admin Acetaminophen 650 mg 03/03/21 21:02 Acetaminophen 325 Mg Tablet PO Q6H PRN Pain, Mild (Pain Scale 1-3) Albuterol/Ipratropium 3 ml 03/04/21 01:36 03/04/21 16:17 Albuterol/Iprat 2.5/0.5mg 3 Ml Ampul.Neb INHALE 3 ml RQ4H PRN Administration Shortness of Breath/Wheezing Atorvastatin Calcium 80 mg 03/03/21 21:02 03/04/21 21:09 Atorvastatin Calcium 80 Mg Tablet PO 80 mg BEDTIME ASIA Administration Bumetanide 2 mg 03/05/21 17:00 Bumetanide 1 Mg Tablet PO BID@0800,1700 ASIA Protocol Carvedilol 6.25 mg 03/03/21 21:02 03/05/21 08:22 Carvedilol 3.125 Mg Tablet PO 6.25 mg BID ASIA Administration Protocol Digoxin 0.125 mg 03/04/21 09:00 03/05/21 08:36 Digoxin 0.125 Mg Tablet PO 0.125 mg SuMoWeThFr@0900 ASIA Administration Isosorbide Dinitrate 20 mg 03/03/21 21:02 03/05/21 08:23 Isosorbide Dinitrate 20 Mg Tablet PO 20 mg TID ASIA Administration Protocol Levothyroxine Sodium 112 mcg/ 137 mcg 03/04/21 06:00 03/05/21 05:08 Levothyroxine Sodium 25 mcg PO 137 mcg DAILY@0600 ASIA Administration Melatonin 3 mg 03/03/21 21:02 03/04/21 21:09 Melatonin 3 Mg Tablet PO 3 mg BEDTIME ASIA Administration Ondansetron HCl 4 mg 03/03/21 21:02 Ondansetron Hcl 4 Mg/2 Ml Vial IVPUSH Q8H PRN Nausea and Vomiting Potassium Chloride 10 meq 03/03/21 21:02 03/05/21 08:23 Potassium Chloride Er 10 Meq Capsule.Er PO 10 meq BID ASIA Administration Rivaroxaban 15 mg 03/04/21 09:00 03/05/21 08:23 Rivaroxaban 15 Mg Tablet PO 15 mg DAILY ASIA Administration Sertraline HCl 50 mg 03/04/21 09:00 03/05/21 08:23 Sertraline Hcl 50 Mg Tablet PO 50 mg DAILY ASIA Administration Sodium Chloride 3 ml 03/04/21 00:00 03/05/21 08:26 0.9 % Sodium Chloride Flush 3 Ml Syringe IVFLUSH 3 ml QSHIFT ASIA Administration Spironolactone 12.5 mg 03/04/21 12:00 03/05/21 08:24 Spironolactone 25 Mg Tablet PO 12.5 mg DAILY ASIA Administration Protocol Tamsulosin HCl 0.4 mg 03/03/21 21:02 03/04/21 21:09 Tamsulosin Hcl 0.4 Mg Capsule PO 0.4 mg BEDTIME ASIA Administration Valsartan 20 mg 03/04/21 12:00 03/05/21 08:24 Valsartan 40 Mg Tablet PO 20 mg BID ASIA Administration Protocol Zolpidem Tartrate 10 mg 03/03/21 21:02 03/04/21 21:12 Zolpidem Tartrate 5 Mg Tablet PO 10 mg BEDTIME ASIA Administration Labs CBC & Chem 7: 03/04/21 05:40 03/04/21 05:40 Assessment and Plan (1) Acute exacerbation of CHF (congestive heart failure): Status: Acute (2) Cerebrovascular accident: Status: Acute (3) Osteoarthritis of right knee: Status: Acute Assessment and Plan: This is a 60-year-old male with past medical history of CHF, as well as recent CVA presents the hospital with shortness of breath, and right knee pain 1. Acute on chronic HFrEF slowly improving change IV bumex to oral this evening -- reassess output tomorrow to ensure appropriate dosing cardiology consult appreciated -- will be following with [facility] [place] cardi[place] as outpatient able to tolerate oxygen 2. NVST multiple runs monitor and replete electrolytes has AICD in place 3. A. Fib contuinue rate control drugs continue Xarelto -- renally dosed 4. CKD stage 3 SCr baseline 5. CVA continue baseline meds no new focal deficits 6. Weakness PT eval -- likely will need STR if he agrees Full Code DVT pptx, Xarelto dispo: anticipate home with PT vs STR by tomorrow needs inpatientn level of care due to advanced HFrEF and titration of his diuretic dosing
--- NOTE | 2021-03-05 14:48 | MHC.CM.PN ---
PATIENT WILL DISCHARGE Friday03/06/21. PATIENT PREFERS TO RETURN HOME, ALTHOUGH IF HE DOES, HE AND ARE ASKING FOR A REFERRAL TO [facility] NOW PLACED. IS NOT HAPPY WITH [facility]. PATIENT ALSO AGREEABLE TO A REFERRAL TO [facility] NOW PLACED. PATIENT WILL DECIDE WHAT THE PLAN IS ONCE HE CONSIDERS HIS OPTIONS.
--- NOTE | 2021-03-05 16:06 | PC.NURSE ---
p patient c/o SOB ,86% on RA I repositioned patient,oxygen applied on at 1 L E-sat 95% on 1 L,will monitor
[2021-03-05] MEDS: Bumetanide 1 MG TABLET 2 MG PO (16:12)
--- NOTE | 2021-03-05 20:44 | PC.NURSE ---
P patient had a episode of 6 beats Vtach I assessed patient,Dr. Chopra notified e patient resting at present,asymptomatic,has no complaints
[2021-03-05] MEDS: Atorvastatin Calcium 80 MG TABLET PO (20:46)
[2021-03-05] MEDS: Melatonin 3 MG TABLET PO (20:47)
[2021-03-05] MEDS: Tamsulosin HCL 0.4 MG CAPSULE PO (20:48)
[2021-03-05] MEDS: Zolpidem Tartrate 5 MG TABLET 10 MG PO (20:48)
[2021-03-06] VITALS (7 sets, daily range): BP systolic 97–140; BP diastolic 63–81; PULSE 70–91; RESP 16–18; TEMP 36.2–36.7; O2SAT 92–99; BMI 39.8
[2021-03-06] MEDS: Levothyroxine Sodium 112 MCG, Levothyroxine Sodium 25 MCG 137 MCG PO (05:05)
[2021-03-06] MEDS: Isosorbide Dinitrate 20 MG TABLET PO ×2 (10:05→15:56)
[2021-03-06] MEDS: Bumetanide 1 MG TABLET 2 MG PO ×2 (10:05→17:06)
[2021-03-06] MEDS: Rivaroxaban 15 MG TABLET PO (10:06)
[2021-03-06] MEDS: carvediloL 3.125 MG TABLET 6.25 MG PO (10:06)
[2021-03-06] MEDS: Sertraline HCL 50 MG TABLET PO (10:07)
[2021-03-06] MEDS: Spironolactone 25 MG TABLET 12.5 MG PO (10:07)
[2021-03-06] MEDS: Valsartan 40 MG TABLET 20 MG PO (10:08)
[2021-03-06] MEDS: 0.9 % Sodium Chloride Flush 3 ML SYRINGE IVFLUSH ×2 (10:09→15:56)
--- NOTE | 2021-03-06 10:27 | PM.DS ---
DS: Providers Provider Date of Service: 03/06/21 Date of admission: 03/03/21 20:34 Primary care physician: Saranya Dominguez MD Consults: 03/03/21 21:02 Consult to Cardiology Routine Consulting Provider: Zander Magana Reason for consultation: chf 03/04/21 00:37 Consult to Orthopedics Routine Consulting Provider: Vineet Yoo Reason for consultation: knee pain Has provider been notified: No DS: Diagnosis Discharge Diagnosis (1) Acute on chronic systolic (congestive) heart failure: Status: Acute (2) Nonsustained ventricular tachycardia: Status: Acute (3) Persistent atrial fibrillation: Status: Acute (4) Chronic renal failure, stage 3 (moderate): Status: Acute (5) Osteoarthritis of right knee: Status: Acute DS: Medications Discharge Medications Home Medications: Home Medications Medication Instructions Recorded Confirmed ferrous sulfate 325 tab PO DAILY 01/06/21 03/03/21 levothyroxine 1 tab PO DAILY 01/06/21 03/03/21 potassium chloride 1 tab PO BID 01/06/21 03/03/21 tamsulosin 1 cap PO BEDTIME 01/06/21 03/03/21 zolpidem 1 tab PO BEDTIME 01/06/21 03/03/21 atorvastatin 1 tab PO BEDTIME 03/03/21 03/03/21 carvedilol 6.25 mg PO BID 03/03/21 03/03/21 digoxin 125 mcg PO USEASDIRECTD 03/03/21 03/03/21 isosorbide dinitrate 20 mg PO TID 03/03/21 03/03/21 melatonin 3 mg PO BEDTIME 03/03/21 03/03/21 sertraline 1 tab PO DAILY 03/03/21 03/03/21 Previous Rx's Medication Instructions Recorded Xarelto 15 mg PO DAILY #30 tab 01/08/21 lisinopril 5 mg PO DAILY #30 tab 01/08/21 bumetanide 2 mg PO BID #60 tab 03/06/21 DS: Summary Hospital Course Hospital Course: Patient presented to the hospital in acute congestive heart failure. He was started on IV diuresis and Cardiology was consulted. Of hospitalization, he had a negative fluid balance of 4.3 L. As his symptoms improved he was transition from IV Bumex to oral Bumex. His home dose of Bumex 2 mg daily was increased to 2 mg twice daily. Patient's hospital course was further complicated by nonsustained ventricular tachycardia. His electrolytes were repleted as needed. Additionally, he has a functioning AICD in place. 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 Additionally, patient had complaints of right knee pain. Was seen by Orthopedics who recommended outpatient follow-up in the clinic for further treatment. Prior to discharge the patient was evaluated by Physical therapy who deemed him a candidate for short-term rehabilitation, however patient opted for home PT which will be range. VNA services are also change per patient and family request. Lastly, patient was noted to be hypoxic intermittently. He underwent home O2 evalutation with saturations remaining >90 on exertion. Time Spent with Patient Time attestation: Total time spent providing and/or coordinating discharge services: Discharge coordination time: Greater than 30 minutes Quality: Stroke Does the patient have a stroke diagnosis?: No Physical Exam Vital Signs: Vital Signs: Last Vital Signs Temp 97.2 F 03/06/21 07:47 Pulse 82 03/06/21 10:05 Resp 18 03/06/21 07:47 BP 123/78 03/06/21 10:05 Pulse Ox 97 03/06/21 07:47 Body Mass Index 39.8 Const: Other: General - no acute distress, appears comfortable Cardiovascular - regular rate and rhythm, S1-S2 Lungs - normal respiratory effort, clear to auscultation bilaterally, no wheezing Abdomen - soft, non-tender, no rebound or guarding Extremities - trace edema bilaterally Neuro - awake and alert, L hemiplegia DS: Data Data Completed and Pending Completed studies during hospitalization [Text1]: Procedures Introduction of Other Thrombolytic into Peripheral Vein, Percutaneous Approach (01/05/21) Discharge Plan Discharge Patient Disposition: Home Health Service Discharge Diagnosis: CHF Knee Pain Referrals: [facility] [Outside] - 1 Week Saranya Dominguez MD [Primary Care Provider] - 1 Week Trent Weinstein PA-C [Physician Android Architect] - 4 Weeks (call office to schedule appt) Discharge Medications: New bumetanide 2 mg tablet 2 mg PO BID Qty: 60 RF: 0 Continued levothyroxine 137 mcg tablet 1 tab PO DAILY RF: 0 potassium chloride 10 mEq tablet extended release 1 tab PO BID RF: 0 tamsulosin 0.4 mg capsule 1 cap PO BEDTIME RF: 0 ferrous sulfate 325 mg (65 mg iron) tablet 325 tab PO DAILY RF: 0 zolpidem 10 mg tablet 1 tab PO BEDTIME RF: 0 lisinopril 5 mg Tablet 5 mg PO DAILY Qty: 30 RF: 0 Xarelto 15 mg Tablet 15 mg PO DAILY Qty: 30 RF: 0 atorvastatin 80 mg tablet 1 tab PO BEDTIME RF: 0 melatonin 3 mg Tablet 3 mg PO BEDTIME RF: 0 isosorbide dinitrate 20 mg tablet 20 mg PO TID RF: 0 sertraline 50 mg tablet 1 tab PO DAILY RF: 0 carvedilol 12.5 mg tablet 6.25 mg PO BID RF: 0 digoxin 125 mcg (0.125 mg) tablet 125 mcg PO USEASDIRECTD RF: 0 Discontinued bumetanide 1 mg tablet 1 tab PO DAILY RF: 0 Discharge Orders: Discharge Order (Routine); Ordered 03/06/21 Ordered By: Reed Benson Diet: advance to usual diet Activity on Discharge: As tolerated Stand Alone Forms: Patient Portal Discharge page Care Plan Goals: To stay healthy and out of the hospital. Health Concerns: CHF OA of the Knee Plan of Treatment: Take bumex 2mg twice daily (increased from once daily) Follow up with cardiology. For your knee pain, you make take tylenol. Do not take NSAIDS. Follow up with orthopedics. Assessment: 60 yo M admitted for CHF exacerbation. Dirused well and home bumex dose increased from 2mg daily to 2mg BID. Also noted to have OA of the knee, will give referral to orthopedics for further care.
--- NOTE | 2021-03-06 10:35 | P.PNCA_ITS ---
Subjective Subjective Date of Service: 03/06/21 Interval history: He states that he is doing okay. Still appears quite deconditioned. Review of Systems Review of Systems Yes all other systems are reviewed and are negative Cardiovascular: Reports as per HPI, Reports no additional cardiovascular complaints, Denies acrocyanosis, Denies cool extremities, Denies painful fingertips, Denies chest pain, Denies chest pain at rest, Denies diaphoresis, Denies syncope, Denies irregular heart rhythm, Denies claudication, Denies leg edema, Denies lightheadedness, Denies palpitations and Denies dyspnea Respiratory: Denies dyspnea Denies syncope Endocrine: Denies palpitations Physical Exam Vital Signs: Last Vital Signs Temp 97.2 F 03/06/21 07:47 Pulse 82 03/06/21 10:05 Resp 18 03/06/21 07:47 BP 123/78 03/06/21 10:05 Pulse Ox 97 03/06/21 07:47 Body Mass Index 39.8 Const General: cooperative, comfortable and no acute distress Orientation/consciousness: patient oriented x3 HENLA Other: Unremarkable Neck Neck: Yes normal visual inspection Chest Chest palpation & inspection: normal inspection of the chest Resp Auscultation: clear to auscultation bilaterally, no crackles and no wheezes Cardio Jugular venous distension: no JVD Palpation: normal PMI Heart sounds: S1 normal heart sound present, S2 normal heart sound present, no gallops, no murmurs and no rubs GI Palpation (GI): Soft to palpation Back/Spine/Pelvis Other: unremarkable Skin General skin exam: no rashes or lesions noted Neuro General: patient oriented x3 Extrem General: Yes no clubbing, cyanosis or edema Psych Mental Status: mental status grossly normal Results Labs and Meds Result diagrams: 03/04/21 05:40 03/04/21 05:40 Progress Note: A&P Assessment and plan (1) Acute on chronic systolic (congestive) heart failure: Status: Acute (2) Persistent atrial fibrillation: Status: Acute (3) Nonsustained ventricular tachycardia: Status: Acute Assessment and Plan: Recent echocardiogram with severely impaired LV function with EF of 25-30%. The re was mild mitral regurgitation and moderately dilated left atrium. Cardiac BNP is elevated to 802. High sensitivity troponins are 20 and 26. Creatinine is elevated at 1.7. Clinically, he appears euvolemic. Currently on carvedilol, valsartan, digoxin, Isordil and Bumex, spironolactone. Oral diuretics. Tele is unremarkable. 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 Fall Risk Details Current Medications: Current Medications Generic Name Dose Route Start Last Admin Trade Name Freq PRN Reason Stop Dose Admin Acetaminophen 650 mg 03/03/21 21:02 Acetaminophen 325 Mg Tablet PO Q6H PRN Pain, Mild (Pain Scale 1-3) Albuterol/Ipratropium 3 ml 03/04/21 01:36 03/04/21 16:17 Albuterol/Iprat 2.5/0.5mg 3 Ml Ampul.Neb INHALE 3 ml RQ4H PRN Administration Shortness of Breath/Wheezing Atorvastatin Calcium 80 mg 03/03/21 21:02 03/05/21 20:46 Atorvastatin Calcium 80 Mg Tablet PO 80 mg BEDTIME ASIA Administration Bumetanide 2 mg 03/05/21 17:00 03/06/21 10:05 Bumetanide 1 Mg Tablet PO 2 mg BID@0800,1700 ASIA Administration Protocol Carvedilol 6.25 mg 03/03/21 21:02 03/06/21 10:06 Carvedilol 3.125 Mg Tablet PO 6.25 mg BID ASIA Administration Protocol Digoxin 0.125 mg 03/04/21 09:00 03/05/21 08:36 Digoxin 0.125 Mg Tablet PO 0.125 mg SuMoWeThFr@0900 ASIA Administration Isosorbide Dinitrate 20 mg 03/03/21 21:02 03/06/21 10:05 Isosorbide Dinitrate 20 Mg Tablet PO 20 mg TID ASIA Administration Protocol Levothyroxine Sodium 112 mcg/ 137 mcg 03/04/21 06:00 03/06/21 05:05 Levothyroxine Sodium 25 mcg PO 137 mcg DAILY@0600 ASIA Administration Melatonin 3 mg 03/03/21 21:02 03/05/21 20:47 Melatonin 3 Mg Tablet PO 3 mg BEDTIME ASIA Administration Ondansetron HCl 4 mg 03/03/21 21:02 Ondansetron Hcl 4 Mg/2 Ml Vial IVPUSH Q8H PRN Nausea and Vomiting Potassium Chloride 10 meq 03/03/21 21:02 03/06/21 10:04 Potassium Chloride Er 10 Meq Capsule.Er PO 10 meq BID ASIA Administration Rivaroxaban 15 mg 03/04/21 09:00 03/06/21 10:06 Rivaroxaban 15 Mg Tablet PO 15 mg DAILY ASIA Administration Sertraline HCl 50 mg 03/04/21 09:00 03/06/21 10:07 Sertraline Hcl 50 Mg Tablet PO 50 mg DAILY ASIA Administration Sodium Chloride 3 ml 03/04/21 00:00 03/06/21 10:09 0.9 % Sodium Chloride Flush 3 Ml Syringe IVFLUSH 3 ml QSHIFT ASIA Administration Spironolactone 12.5 mg 03/04/21 12:00 03/06/21 10:07 Spironolactone 25 Mg Tablet PO 12.5 mg DAILY ASIA Administration Protocol Tamsulosin HCl 0.4 mg 03/03/21 21:02 03/05/21 20:48 Tamsulosin Hcl 0.4 Mg Capsule PO 0.4 mg BEDTIME ASIA Administration Valsartan 20 mg 03/04/21 12:00 03/06/21 10:08 Valsartan 40 Mg Tablet PO 20 mg BID ASIA Administration Protocol Zolpidem Tartrate 10 mg 03/03/21 21:02 03/05/21 20:48 Zolpidem Tartrate 5 Mg Tablet PO 10 mg BEDTIME ASIA Administration Time Spent With Patient Time: Total time spent is greater than 50% in coordination of care (as documented) at patient's floor/unit and/or counseling patient: Time with patient: less than 15 minutes Procedures Date of Service Date of Service: 03/06/21
--- NOTE | 2021-03-06 11:38 | P.F2F_ITS ---
Service Date Service Date: 03/06/21 Encounter Date of encounter: 03/06/21 Reasons for Services Reason for penitentiary: teach disease management Reason for physical therapy: home safety and mobility Overseeing Care: Saranya Dominguez Homebound: Leaving the home is medically contraindicated at this time without the asist of a device and/or another person due to the listed conditions above and below. Reason homebound: unsteady gait / fall risk Certification: Based on the above findings, I certify that this patient is confined to the home and needs intermittent penitentiary care, physical therapy and/or speech therapy, or continues to need occupational therapy. The patient is under my care, and I have initiated the establishment of the plan of care. The patient will be followed by a physician who will periodically review the plan of care.
--- NOTE | 2021-03-06 12:00 | MHC.CM.PN ---
PATIENT WILL DISCHARGE HOME AFTER RESPIRATORY EVALUATION. POSSIBLE HOME O2 NEEDS. RN AND PATIENT AWARE OF PLAN. TO PROVIDE TRANSPORT HOME.
--- NOTE | 2021-03-06 12:24 | MHC.CM.PN ---
PATIENT AND NOW CHOOSING TO REMAIN WITH [facility] IN [facility].
== END 2021-03-06 18:21 | disposition home health service (06) | DRG 291 ==
LOC: HO.ED 17:45 → HO.EDOVER 20:53 → HO.S3 22:44
PROVIDERS: Admitting Provider Internal Medicine; Emergency Provider Emergency Medicine; PCP Internal Medicine; Visit Provider Family Medicine
DX: I13.0 Hypertensive heart and chronic kidney disease with heart failure and stage 1 through stage 4 chronic kidney disease, or unspecified chronic kidney disease (principal); I50.23 Acute on chronic systolic (congestive) heart failure; I69.951 Hemiplegia and hemiparesis following unspecified cerebrovascular disease affecting right dominant side; I47.1 Supraventricular tachycardia; I48.19 Other persistent atrial fibrillation; E03.9 Hypothyroidism, unspecified; N40.0 Benign prostatic hyperplasia without lower urinary tract symptoms; E66.9 Obesity, unspecified; Z68.39 Body mass index [BMI] 39.0-39.9, adult; Z95.810 Presence of automatic (implantable) cardiac defibrillator; I25.5 Ischemic cardiomyopathy; E11.22 Type 2 diabetes mellitus with diabetic chronic kidney disease; N18.30 Chronic kidney disease, stage 3 unspecified; M17.11 Unilateral primary osteoarthritis, right knee; Z86.718 Personal history of other venous thrombosis and embolism; F32.9 Major depressive disorder, single episode, unspecified; Z20.822 Contact with and (suspected) exposure to COVID-19; Z79.01 Long term (current) use of anticoagulants; Z79.890 Hormone replacement therapy; Z79.899 Other long term (current) drug therapy
CPT/HCPCS: 36415; 71045; 73564; 80048; 80162; 83735; 83880; 84484; 85025; 87635; 93005; 94640; 96374; 97162; 99285; J1200; J1940

== ENCOUNTER → 2021-04-26 08:41 | Outpatient (BNVA) | payer MEDICARE, MEDICAID, SELFPAY | PROVIDERS: Visit Provider Physician Assistant | DX: M25.561 Pain in right knee (principal); M17.11 Unilateral primary osteoarthritis, right knee; I63.9 Cerebral infarction, unspecified; I50.9 Heart failure, unspecified; N18.30 Chronic kidney disease, stage 3 unspecified; E03.9 Hypothyroidism, unspecified | CPT/HCPCS: 20610; 99202; J1040 ==

== ENCOUNTER 2021-09-18 12:17 | Emergency (ER) | payer MEDICARE, MEDICAID, SELFPAY ==
--- NOTE | ~2021-09-18 | CT_ITS ---
EXAMINATION: CT HEAD WITHOUT CONTRAST CLINICAL INFORMATION: Fall. Head trauma. COMPARISON: Previous head CT the most recent December 2020 TECHNIQUE: Contiguous axial imaging was performed from the skull base to vertex without intravenous administration of contrast. This CT examination was performed using dose optimization techniques as appropriate, variously including the following: *Automated exposure control *Adjustment of mA and/or kV according to patient size (this includes techniques or standardized protocols for targeted exams where dose is matched to indication/reason for exam; i.e. extremities or head) *Use of iterative reconstruction technique DLP: 722 mGy-cm FINDINGS: There is no evidence of an extra-axial collection. There is no evidence of intra-axial or extra-axial hemorrhage. Ventricles and extra-axial CSF spaces are prominent suggestive of mild generalized atrophy. There is nonspecific periventricular white matter disease. There are old left temporal occipital and thalamic infarcts. No mass, mass effect or acute infarct is seen. Review at bone windows is normal. No skull fracture is seen. Paranasal sinuses, mastoid air cells and middle ears are clear. CT/CT head/brain wo con IMPRESSION: No acute findings. Mild generalized atrophy and old left temporal occipital and thalamic infarcts.
--- NOTE | ~2021-09-18 | XR_ITS ---
EXAMINATION: XR CHEST CLINICAL INFORMATION: Shortness of breath COMPARISON: Previous chest x-ray most recent February 2021 TECHNIQUE: 2 views of the chest were obtained. FINDINGS: The cardiac silhouette is enlarged but stable. There is a left subclavian AICD device that appears unchanged. There is pulmonary venous redistribution. There is increased perihilar attenuation, right greater than left, questionable for mild pulmonary edema. There is no pleural effusion. There are degenerative changes of the spine. XR/XR chest 2V IMPRESSION: Enlarged cardiac silhouette and question mild CHF.
--- NOTE | ~2021-09-18 | XR_ITS ---
EXAMINATION: RIGHT HAND AND WRIST X-RAY CLINICAL INFORMATION: Injury COMPARISON: None TECHNIQUE: 4 views of the right hand and wrist FINDINGS: Bone alignment is normal. No fracture or dislocation is seen. The bones are osteopenic. There is mild arthritis at the IP joints, first JAIL joint and radiocarpal and distal radial ulnar joint. Soft tissues are unremarkable. XR/XR hand wrist RT IMPRESSION: No fracture or dislocation. Osteopenia and mild arthritis.
[2021-09-18 12:23] VITALS: BP 124/84; PULSE 85; TEMP 36.1; O2SAT 94; BMI 36.9
[2021-09-18 15:10] VITALS: BP 132/97; PULSE 91; RESP 14; TEMP 36.7; O2SAT 98
--- NOTE | 2021-09-18 16:04 | ECG_ITS ---
Test Reason : ?SYNCOPE Blood Pressure : / mmHG Vent. Rate : 082 BPM Atrial Rate : 040 BPM P-R Int : 000 ms QRS Dur : 122 ms QT Int : 392 ms P-R-T Axes : 000 -37 173 degrees QTc Int : 457 ms Atrial fibrillation with PVC Non-specific intra-ventricular conduction delay Minimal voltage criteria for LVH, may be normal variant ( [place] product ) ST & T wave abnormality, consider lateral ischemia Abnormal ECG When compared with ECG of 04-MAR-2021 00:47, No significant changes seen Referred By: Isamar Castano Electronically Signed By:Chin Aguilar
--- NOTE | 2021-09-18 16:32 | ED_ITS ---
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 Patient tells me that he had a fall out of bed the night prior to noticing the pain and swelling. He tells me he thinks he struck his hand when he fell out of bed but he does not recall the injury. He tells me he takes a sleeping pill at bedtime and this sometimes when he does this he falls and has some memory recall impairment. he does not believe that he had any weakness or dizziness or palpitations or shortness of breath but he tells me he really does not remember. He did strike his head but denies any loss of consciousness. He does report for the last week he has had some shortness of breath which is worsened with lying flat. He denies any cough, leg swelling, fevers or chills or chest pain. He tells me he is taking his Bumex 2 mg twice daily and has not missed any doses. He denies any weight gain. Related Data Home Medications Medication Instructions Recorded Confirmed ferrous sulfate 325 mg (65 mg 325 tab PO DAILY 01/06/21 03/03/21 iron) tablet levothyroxine 137 mcg tablet 1 tab PO DAILY 01/06/21 03/03/21 potassium chloride 10 mEq 1 tab PO BID 01/06/21 03/03/21 tablet,extended release tamsulosin 0.4 mg capsule 1 cap PO BEDTIME 01/06/21 03/03/21 zolpidem 10 mg tablet 1 tab PO BEDTIME 01/06/21 03/03/21 atorvastatin 80 mg tablet 1 tab PO BEDTIME 03/03/21 03/03/21 carvedilol 12.5 mg tablet 6.25 mg PO BID 03/03/21 03/03/21 digoxin 125 mcg (0.125 mg) tablet 125 mcg PO USEASDIRECTD 03/03/21 03/03/21 isosorbide dinitrate 20 mg tablet 20 mg PO TID 03/03/21 03/03/21 melatonin 3 mg tablet 3 mg PO BEDTIME 03/03/21 03/03/21 sertraline 50 mg tablet 1 tab PO DAILY 03/03/21 03/03/21 Previous Rx's Medication Instructions Recorded lisinopril 5 mg tablet 5 mg PO DAILY #30 tab 01/08/21 rivaroxaban 15 mg tablet (Xarelto) 15 mg PO DAILY #30 tab 01/08/21 bumetanide 2 mg tablet 2 mg PO BID #60 tab 03/06/21 oxycodone 5 mg tablet 5 mg PO Q8H PRN #8 tab 09/18/21 Allergies Allergy/AdvReac Type Severity Reaction Status Date / Time No Known Allergies Allergy Verified 04/26/21 08:48 Review of Systems Review of Systems: Yes all other systems are reviewed and are negative Constitutional: Constitutional: Reports no additional constitutional complaints, Denies body ache(s), Denies chills, Denies fever(s), Denies headache(s) and Denies weakness Eyes: Eyes: Reports no additional eye complaints and Denies change in vision ENT: Reports system reviewed and no additional complaints, except as documented, Denies dizziness, Denies headache(s), Denies nasal congestion, Denies nasal discharge and Denies neck pain Cardiovascular: Cardiovascular: Reports no additional cardiovascular complaints, Denies chest pain, Denies leg edema and Reports dyspnea Respiratory: Respiratory: Reports no additional respiratory complaints, Denies cough and Reports dyspnea Gastrointestinal: Gastrointestinal: Reports no additional gastrointestinal co mplaints, Denies abdominal pain, Denies diarrhea, Denies nausea and Denies vomiting Genitourinary: Genitourinary: Denies urinary incontinence Musculoskeletal: Musculoskeletal: Reports no additional musculoskeletal complaints, Denies back pain, Reports arthralgias, Reports joint swelling, Rep orts limited range of motion, Denies neck pain, Denies numbness and Denies tingling Integumentary/Breasts: Skin/Breast: Reports system reviewed and no additional complaints, except as docu and Denies rash Neurologic: Reports system reviewed and no additional complaints, except as documented, Denies Abnormal speech present, Denies dizziness, Denies headache(s), Denies numbness, Denies tingling and Denies weakness PMFSH Past Medical History Attestation statement: The following information was validated with the patient. Source: old records reviewed and nursing notes reviewed Medical History Acute exacerbation of CHF (congestive heart failure) Acute on chronic systolic (congestive) heart failure Asthma Atrial fibrillation with RVR Cerebrovascular accident Chronic renal failure, stage 3 (moderate) Congestive cardiomyopathy Congestive heart failure Depression DVT (deep venous thrombosis) Hypothyroidism Nonsustained ventricular tachycardia Persistent atrial fibrillation Social History Social History Do you presently have visiting nurse or other home services: Yes Unable to assess alcohol history related to: Unknown Second Hand Smoke Exposure: No Advance Directives: No Advance Directives Information Provided: No service: No Current occupational status: unemployed Current occupation: rt handed Physical Exam Vital Signs: Vital Signs: Last Vital Signs Temp 97.9 F 09/18/21 18:49 Pulse 80 09/18/21 20:00 Resp 18 09/18/21 20:00 BP 113/59 L 09/18/21 20:00 Pulse Ox 97 09/18/21 18:49 BMI result Body Mass Index 36.9 Const: General: cooperative, healthy appearing, comfortable and no acute distress Orientation/consciousness: patient oriented x3 Limitations: no limitations HENMT: Head: Yes normal to inspection Ears: hearing grossly normal bilaterally General nose exam: Normal external nose present Face and sinus: Yes normal facial exam Mouth: Normal oral and palatal mucosa present Throat: Yes posterior oropharynx normal Eyes: General: appearance normal, both eyes and all related structures Pupils: Equal, round and reactive pupils present Neck: Neck: Yes normal visual inspection Chest: Chest palpation & inspection: normal inspection of the chest Resp: Other: Diminished breath sounds bilaterally Effort & Inspection: normal respiratory effort Cardio: Rate: regular rate Rhythm: regular rhythm Peripheral pulses: Peripheral pulses 2+ throughout GI: Inspection: Yes normal to inspection Palpation (GI): Soft to palpation and nontender Auscultation: normal bowel sounds Back/Spine/Pelvis: Thoracic/Lumbar Spine: thoracic and lumbar spine normal to inspection Skin: General skin exam: no rashes or lesions noted Neuro: Other: Right sided weakness and sensation loss at baseline per patient General: patient oriented x3 and normal sensation to monofilament Cranial nerves: Yes CN's II-XII intact bilaterally, Yes Equal, round and reactive pupils present, Yes Bilaterally intact EOM present, Yes Nystagmus not present, Yes Normal facial strength present and Yes Midline tongue present Cognition (Neuro): normal cognition Speech: No Abnormal speech present Gait exam (Neuro): Normal gait present Sensory Exam: Normal double simultaneous stimulation for sensation Extrem: Other: over the right thenar and over the volar aspect of the right wrist there is ecchymosis with mild swelling. The compartments are soft and compressible. There is some mild tenderness on exam. There is no deformity. The skin is pink and warm and dry. Palpable radial and ulnar pulses noted. There is full range of motion of the affected joint. Normal cap refill distally. 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 here with right hand pain and bruising noted over the last few days after having a fall. Unknown cause of fall. Patient is having difficulty recalling the events of the fall. He did know it was at night time and he takes a sleeping medication every night which does cause him to have some memory impairment and falls at times. He is also complaining of some shortness of breath which is worsened with lying flat but denies any cough or chest pain or fevers or chills or leg swelling or weight gain. Compliant with his Bumex at home. On exam there is some ecchymosis and swelling noted over the right thenar and volar aspect of the right wrist but there is full range of motion with normal cap refill and the skin is warm and pink and dry. X-rays show no bony abnormality. Likely hematoma which was antagonize by the patient being on anticoagulation. The compartments are soft and compressible so less likely compartment syndrome with no reports of distal neurovascular changes and a normal pulse. Due to complaints of head strike and unknown cause of fall will check CT head, EKG, chest x-ray and labs. Additionally the patient is complaining of some orthopnea. Clinically he does not appear in fluid overload however the chest x- ray ordered from triage shows what appears to be mild congestive heart failure. Will obtain a BNP. Patient missed his dose of Bumex this afternoon and so I have ordered this as well as analgesia. 183- Imaging is unremarkable with exception of chest x-ray which shows mild CHF. The patient's BNP is 493. his baseline is in the 800s. He clinically does not appear in fluid overload. 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 His EKG is at baseline. His initial troponin is 24.1. Plan for repeat troponin although atypical for ACS. 2014- repeat troponin is flat. Plan for discharge home with PCP follow-up. Reviewed worrisome signs and symptoms of when to return to the emergency department. Comfortable discharge home. Medical Decision Making Medical Records Medical records reviewed: Yes I reviewed the patient's medical records. Lab Data Lab results reviewed: Yes I reviewed the patient's lab results. Result diagrams: 09/18/21 16:44 09/18/21 16:44 Labs: Lab Results 09/18/21 09/18/21 09/18/21 Range/Units 16:44 16:44 16:44 WBC 4.2 L (4.8-10.8) X10*3/uL RBC 4.40 L (4.60-5.80) X10*6/uL Hgb 12.3 L (14.0-18.0) g/dl Hct 38.6 L (42.0-52.0) % MCV 87.7 (80.0-98.0) fL MCH 28.0 (27.0-33.0) pg MCHC 31.9 (31.0-36.0) g/dl RDW 16.5 H (11.0-16.0) % Plt Count 149 L (160-400) X10*3/uL MPV 11.7 (9.4-12.4) fL Immature Gran % (Auto) 0.2 (0.0-0.4) % Neut % (Auto) 65.1 (45-73) % Lymph % (Auto) 23.8 (20-40) % [place] % (Auto) 9.0 (2-11) % Eos % (Auto) 1.4 (0-4) % Baso % (Auto) 0.5 (0-2) % Lymph # (Auto) 1.0 L (1.2-4.9) X10*3/uL [place] # (Auto) 0.4 (0.1-1.2) X10*3/uL Eos # (Auto) 0.1 (0.0-0.4) X10*3/uL Baso # (Auto) 0.0 (0.0-0.2) X10*3/uL Abs Immat Gran (auto) 0.01 (0.00-0.03) X10*3/uL Absolute Neuts (auto) 2.7 (2.0-8.3) x10*3/uL Absolute Nucleated RBC 0.000 (0.0-0.012) X10*3/uL Nucleated RBC % (auto) 0.0 (0.0-0.2) /100WBC PT 30.4 H (9.9-13.0) SEC INR 2.6 H (0.9-1.1) Sodium 140 (135-145) mmol/L Potassium 4.2 (3.3-5.1) mmol/L Chloride 105 (96-108) mmol/L Carbon Dioxide 27 (22-29) mmol/L Anion Gap 12 (12-20) BUN 23 H (9-16) mg/dL Creatinine 1.73 H (0.5-1.4) mg/dL Estim Creat Clear Calc 62.6 Estimated GFR 40 Random Glucose 112 (60-115) mg/dL Calcium 9.2 (8.4-10.2) mg/dL Magnesium 2.1 (1.6-2.6) mg/dL Total Bilirubin 1.5 H (0.0-1.0) mg/dL Direct Bilirubin 0.8 H (0.0-0.5) mg/dL AST 33 (5-37) U/L ALT 34 (0-40) U/L Alkaline Phosphatase 140 H (39-117) U/L Troponin I High Sens (<3.5-35.0) ng/L B-Natriuretic Peptide (<100) pg/mL Total Protein 7.4 (6.5-8.0) g/dL Albumin 3.6 (3.5-5.0) g/dL 09/18/21 09/18/21 Range/Units 16:44 18:54 WBC (4.8-10.8) X10*3/uL RBC (4.60-5.80) X10*6/uL Hgb (14.0-18.0) g/dl Hct (42.0-52.0) % MCV (80.0-98.0) fL MCH (27.0-33.0) pg MCHC (31.0-36.0) g/dl RDW (11.0-16.0) % Plt Count (160-400) X10*3/uL MPV (9.4-12.4) fL Immature Gran % (Auto) (0.0-0.4) % Neut % (Auto) (45-73) % Lymph % (Auto) (20-40) % [place] % (Auto) (2-11) % Eos % (Auto) (0-4) % Baso % (Auto) (0-2) % Lymph # (Auto) (1.2-4.9) X10*3/uL [place] # (Auto) (0.1-1.2) X10*3/uL Eos # (Auto) (0.0-0.4) X10*3/uL Baso # (Auto) (0.0-0.2) X10*3/uL Abs Immat Gran (auto) (0.00-0.03) X10*3/uL Absolute Neuts (auto) (2.0-8.3) x10*3/uL Absolute Nucleated RBC (0.0-0.012) X10*3/uL Nucleated RBC % (auto) (0.0-0.2) /100WBC PT (9.9-13.0) SEC INR (0.9-1.1) Sodium (135-145) mmol/L Potassium (3.3-5.1) mmol/L Chloride (96-108) mmol/L Carbon Dioxide (22-29) mmol/L Anion Gap (12-20) BUN (9-16) mg/dL Creatinine (0.5-1.4) mg/dL Estim Creat Clear Calc Estimated GFR Random Glucose (60-115) mg/dL Calcium (8.4-10.2) mg/dL Magnesium (1.6-2.6) mg/dL Total Bilirubin (0.0-1.0) mg/dL Direct Bilirubin (0.0-0.5) mg/dL AST (5-37) U/L ALT (0-40) U/L Alkaline Phosphatase (39-117) U/L Troponin I High Sens 24.1 22.7 (<3.5-35.0) ng/L B-Natriuretic Peptide 493 H (<100) pg/mL Total Protein (6.5-8.0) g/dL Albumin (3.5-5.0) g/dL Imaging Data CT scan - head: Attestation: I personally reviewed and interpreted this imaging study as follows: Radiologist's impression: FINDINGS: There is no evidence of an extra-axial collection. There is no evidence of intra-axial or extra-axial hemorrhage. Ventricles and extra-axial CSF spaces are prominent suggestive of mild generalized atrophy. There is nonspecific periventricular white matter disease. There are old left temporal occipital and thalamic infarcts. No mass, mass effect or acute infarct is seen. Review at bone windows is normal. No skull fracture is seen. Paranasal sinuses, mastoid air cells and middle ears are clear. ? CT/CT head/brain wo con IMPRESSION: No acute findings. Mild generalized atrophy and old left temporal occipital and thalamic infarcts. Chest x-ray: Attestation: I personally reviewed and interpreted this imaging study as follows: Radiologist's impression: FINDINGS: The cardiac silhouette is enlarged but stable. There is a left subclavian AICD device that appears unchanged. There is pulmonary venous redistribution. There is increased perihilar attenuation, right greater than left, questionable for mild pulmonary edema. There is no pleural effusion. There are degenerative changes of the spine. XR/XR chest 2V IMPRESSION: Enlarged cardiac silhouette and question mild CHF. Right hand/wrist x-ray: Attestation: I personally reviewed and interpreted this imaging study as follows: Radiologist's impression: FINDINGS: Bone alignment is normal. No fracture or dislocation is seen. The bones are osteopenic. There is mild arthritis at the IP joints, first CHCF joint and radiocarpal and distal radial ulnar joint. Soft tissues are unremarkable.? XR/XR hand wrist RT IMPRESSION: No fracture or dislocation. Osteopenia and mild arthritis.? ECG Data Attestation: I personally reviewed and interpreted this ECG as follows: Interpretation: AFib with a rate of 82, normal QRS, normal QT Discharge Plan Discharge Clinical Impression: Contusion of hand, right, Fall Patient Disposition: Home, Self-Care Instructions: Contusion in Adults (ED), Fall Prevention (ED) Additional Instructions: Ice to the hand/wrist. Elevate the extremity Your x-rays are normal. You have a hematoma under the skin which will take time to heal. Prescriptions: New oxycodone 5 mg tablet 5 mg PO Q8H PRN (Reason: pain) Qty: 8 RF: 0 No Action levothyroxine 137 mcg tablet 1 tab PO DAILY RF: 0 potassium chloride 10 mEq tablet extended release 1 tab PO BID RF: 0 tamsulosin 0.4 mg capsule 1 cap PO BEDTIME RF: 0 ferrous sulfate 325 mg (65 mg iron) tablet 325 tab PO DAILY RF: 0 zolpidem 10 mg tablet 1 tab PO BEDTIME RF: 0 lisinopril 5 mg Tablet 5 mg PO DAILY Qty: 30 RF: 0 Xarelto 15 mg Tablet 15 mg PO DAILY Qty: 30 RF: 0 atorvastatin 80 mg tablet 1 tab PO BEDTIME RF: 0 melatonin 3 mg Tablet 3 mg PO BEDTIME RF: 0 isosorbide dinitrate 20 mg tablet 20 mg PO TID RF: 0 sertraline 50 mg tablet 1 tab PO DAILY RF: 0 carvedilol 12.5 mg tablet 6.25 mg PO BID RF: 0 digoxin 125 mcg (0.125 mg) tablet 125 mcg PO USEASDIRECTD RF: 0 bumetanide 2 mg tablet 2 mg PO BID Qty: 60 RF: 0 Referrals: Saranya Dominguez MD [Primary Care Provider] - 2 days Interventions: ED Discharge Assessment Last Done: 09/18/21 20:23 Discharge Date/Time: 09/18/21 20:25
[2021-09-18] MEDS: Bumetanide 1 MG TABLET 2 MG PO (16:35)
[2021-09-18] MEDS: Acetaminophen 325 MG TABLET 650 MG PO (16:36)
[2021-09-18] MEDS: oxyCODONE HCl Immed Release 5 MG TABLET PO (16:36)
[2021-09-18 16:37] VITALS: BP 132/74; PULSE 65; RESP 20; O2SAT 95
[2021-09-18 16:50] LABS: MANUAL DIFF FLAG NO
[2021-09-18 17:00] LABS: Basophils Percent Auto 0.5 % (0-2); Eosinophils Absolute Auto 0.1 X10*3/uL (0.0-0.4); Eosinophils Percent Auto 1.4 % (0-4); Hematocrit 38.6 % (42.0-52.0); Hemoglobin 12.3 g/dl (14.0-18.0); Imm Gran Abs Auto 0.01 X10*3/uL (0.00-0.03); Imm Gran Pct Auto 0.2 % (0.0-0.4); Lymphocytes Percent Auto 23.8 % (20-40); Mean Corpuscular HGB Conc 31.9 g/dl (31.0-36.0); Mean Corpuscular Volume 87.7 fL (80.0-98.0); Mean Platelet Volume 11.7 fL (9.4-12.4); Monocytes Absolute Auto 0.4 X10*3/uL (0.1-1.2); Neutrophils Absolute Auto 2.7 x10*3/uL (2.0-8.3); Neutrophils Percent Auto 65.1 % (45-73); Platelet Count 149 X10*3/uL (160-400); Red Cell Distribution Width 16.5 % (11.0-16.0); White Blood Count 4.2 X10*3/uL (4.8-10.8)
[2021-09-18 17:01] LABS: INTERNATIONAL NORM RATIO 2.6 (0.9-1.1); Prothrombin Time 30.4 SEC (9.9-13.0)
[2021-09-18 17:13] LABS: Alanine Aminotransferase 34 U/L (0-40); Albumin Level 3.6 g/dL (3.5-5.0); Alkaline Phosphatase 140 U/L (39-117); Anion Gap 12 (12-20); Aspartate Amino Transferase 33 U/L (5-37); Bilirubin Direct 0.8 mg/dL (0.0-0.5); Bilirubin Total 1.5 mg/dL (0.0-1.0); Blood Urea Nitrogen 23 mg/dL (9-16); Calcium 9.2 mg/dL (8.4-10.2); Carbon Dioxide 27 mmol/L (22-29); Chloride 105 mmol/L (96-108); Creatinine Clr Calc Pharmacy 62.6; Estimated Glomerular Filt Rate 40; Glucose Random 112 mg/dL (60-115); Magnesium 2.1 mg/dL (1.6-2.6); Potassium 4.2 mmol/L (3.3-5.1); Sodium 140 mmol/L (135-145); Total Protein 7.4 g/dL (6.5-8.0)
[2021-09-18 17:14] LABS: B Type Natriuretic Peptide 493 pg/mL (<100); Troponin-I High Sensitivity 24.1 ng/L (<3.5-35.0)
[2021-09-18 18:49] VITALS: BP 113/59; PULSE 80; RESP 18; TEMP 36.6; O2SAT 97
[2021-09-18 19:40] LABS: Troponin-I High Sensitivity 22.7 ng/L (<3.5-35.0)
[2021-09-18 20:00] VITALS: BP 113/59; PULSE 80; RESP 18
== END 2021-09-18 20:25 | disposition home or self-care (01) ==
PROVIDERS: Nurse Practitioner Family; Emergency Provider Emergency Medicine Emergency Medical Services; PCP Internal Medicine
DX: S60.221A Contusion of right hand, initial encounter (principal); R07.89 Other chest pain; G44.309 Post-traumatic headache, unspecified, not intractable; I48.91 Unspecified atrial fibrillation; R06.02 Shortness of breath; W06.XXXA Fall from bed, initial encounter; Y93.9 Activity, unspecified; Y92.003 Bedroom of unspecified non-institutional (private) residence as the place of occurrence of the external cause; Y99.9 Unspecified external cause status; Z79.899 Other long term (current) drug therapy; Z79.01 Long term (current) use of anticoagulants; Z86.718 Personal history of other venous thrombosis and embolism
CPT/HCPCS: 36415; 70450; 71046; 73110; 73130; 80048; 80076; 83735; 83880; 84484; 85025; 85610; 93005; 99284

== ENCOUNTER 2021-10-19 00:26 | Emergency (ER) | payer MEDICARE, MEDICAID, SELFPAY ==
--- NOTE | ~2021-10-19 | CT_ITS ---
EXAMINATION CT CHEST, ABDOMEN AND PELVIS WITHOUT CONTRAST CLINICAL INFORMATION: c Trauma COMPARISON: None. TECHNIQUE: Multidetector volumetric CT imaging of the chest, abdomen and pelvis without contrast. Coronal and sagittal reformats were reviewed. This CT examination was performed using dose optimization techniques as appropriate, variously including the following: *Automated exposure control *Adjustment of mA and/or kV according to patient size (this includes techniques or standardized protocols for targeted exams where dose is matched to indication/reason for exam; i.e. extremities or head) *Use of iterative reconstruction technique DLP: 1713 mGy-cm. FINDINGS: CHEST LUNGS/PLEURA: Lungs are clear. No pneumothorax. There is no pleural effusion. No pleural mass or thickening. MEDIASTINUM/FLEX: Cardiomegaly. No pericardial effusion. No mediastinal hematoma. Great vessels normal caliber. No mediastinal or hilar adenopathy. CHEST WALL/AXILLA: Unremarkable. ABDOMEN/PELVIS HEPATOBILIARY: Liver normal in size, contour and morphology. No suspicious lesions. No intra or extrahepatic biliary dilation. Cholelithiasis. PANCREAS: Unremarkable. SPLEEN: Unremarkable. ADRENAL GLANDS: Unremarkable. KIDNEYS, URETERS AND BLADDER: Kidneys normal in size, axis and morphology. There are 2 right and one left nonobstructive intrarenal calculi measuring up to 1.0 cm on the right. No hydronephrosis. Ureters normal in course and caliber. Bladder grossly unremarkable.. GASTROINTESTINAL TRACT: Ayaan-en-Y gastrojejunostomy. Scattered colonic diverticula without evidence of diverticulitis. PELVIC VISCERA: Unremarkable. LYMPH NODES: No lymphadenopathy. PERITONEUM/BODY WALL: Small perihepatic and perisplenic ascites. VASCULAR STRUCTURES: Unremarkable. OSSEOUS STRUCTURES No acute or suspicious osseous abnormalities. CT/CT abdomen pelvis wo con IMPRESSION: No evidence of acute hepatic injury within the chest, abdomen or pelvis. Chronic findings as above.
--- NOTE | ~2021-10-19 | XR_ITS ---
EXAMINATION: XR SHOULDER, LEFT CLINICAL INFORMATION: Fall. Left shoulder pain. COMPARISON: None TECHNIQUE: Three views of the left shoulder. FINDINGS: No acute fracture or dislocation. Moderate marginal osteophytes along the acromioclavicular joint. Glenohumeral joint preserved. Soft tissues unremarkable. XR/XR shoulder LT min 2V IMPRESSION: No acute fracture or dislocation.
--- NOTE | ~2021-10-19 | CT_ITS ---
EXAMINATION: CT HEAD WITHOUT CONTRAST CT CERVICAL SPINE WITHOUT CONTRAST CLINICAL INFORMATION: Fall COMPARISON: 01/07/2020 and 09/18/2021 TECHNIQUE: Multidetector CT imaging of the head and cervical spine was performed without the use of intravenous contrast. Multiplanar reformats are reviewed. This CT examination was performed using dose optimization techniques as appropriate, variously including the following: *Automated exposure control *Adjustment of mA and/or kV according to patient size (this includes techniques or standardized protocols for targeted exams where dose is matched to indication/reason for exam; i.e. extremities or head) *Use of iterative reconstruction technique DLP: 2266 mGy-cm. FINDINGS: There is no evidence of acute intracranial hemorrhage or territorial infarction. No abnormal mass effect or midline shift is seen. Beth to white matter differentiation is well preserved. No extra-axial fluid collections are identified. The ventricles are normal in size. Chronic left medial occipital, right lateral occipital and left temporal lobe infarcts. Chronic left thalamic lacunar infarct. Old bilateral cerebellar lacunar infarcts. Mild chronic white matter small vessel ischemic changes. Right parasagittal parietal calvarial subgaleal hematoma. Calvarium intact.. The mastoid air cells and visualized portions of the paranasal sinuses are well-aerated. Atlantooccipital alignment is maintained. The vertebral bodies and posterior elements align normally. No acute fracture or subluxation. Vertebral body heights are maintained.No significant degenerative changes are appreciated. No central canal or foraminal narrowing. The cervicomedullary junction and spinal cord are grossly unremarkable. The paraspinal soft tissues are unremarkable. The imaged lung apices are clear CT/CT cervical spine wo con IMPRESSION: No acute intracranial pathology. No cervical spine fracture or malalignment.
--- NOTE | ~2021-10-19 | CT_ITS ---
EXAMINATION CT CHEST, ABDOMEN AND PELVIS WITHOUT CONTRAST CLINICAL INFORMATION: c Trauma COMPARISON: None. TECHNIQUE: Multidetector volumetric CT imaging of the chest, abdomen and pelvis without contrast. Coronal and sagittal reformats were reviewed. This CT examination was performed using dose optimization techniques as appropriate, variously including the following: *Automated exposure control *Adjustment of mA and/or kV according to patient size (this includes techniques or standardized protocols for targeted exams where dose is matched to indication/reason for exam; i.e. extremities or head) *Use of iterative reconstruction technique DLP: 1713 mGy-cm. FINDINGS: CHEST LUNGS/PLEURA: Lungs are clear. No pneumothorax. There is no pleural effusion. No pleural mass or thickening. MEDIASTINUM/FLEX: Cardiomegaly. No pericardial effusion. No mediastinal hematoma. Great vessels normal caliber. No mediastinal or hilar adenopathy. CHEST WALL/AXILLA: Unremarkable. ABDOMEN/PELVIS HEPATOBILIARY: Liver normal in size, contour and morphology. No suspicious lesions. No intra or extrahepatic biliary dilation. Cholelithiasis. PANCREAS: Unremarkable. SPLEEN: Unremarkable. ADRENAL GLANDS: Unremarkable. KIDNEYS, URETERS AND BLADDER: Kidneys normal in size, axis and morphology. There are 2 right and one left nonobstructive intrarenal calculi measuring up to 1.0 cm on the right. No hydronephrosis. Ureters normal in course and caliber. Bladder grossly unremarkable.. GASTROINTESTINAL TRACT: Ayaan-en-Y gastrojejunostomy. Scattered colonic diverticula without evidence of diverticulitis. PELVIC VISCERA: Unremarkable. LYMPH NODES: No lymphadenopathy. PERITONEUM/BODY WALL: Small perihepatic and perisplenic ascites. VASCULAR STRUCTURES: Unremarkable. OSSEOUS STRUCTURES No acute or suspicious osseous abnormalities. CT/CT chest wo con IMPRESSION: No evidence of acute hepatic injury within the chest, abdomen or pelvis. Chronic findings as above.
[2021-10-19 01:02] VITALS: BP 113/86; PULSE 78; RESP 16; TEMP 36.6; O2SAT 96; BMI 42.1
--- NOTE | 2021-10-19 01:15 | ED_ITS ---
HPI - Fall General Chief Complaint: Fall Stated Complaint: HEAD LAC S/P FALL Time Seen by Provider: 10/19/21 00:51 Source: patient and EMS Mode of arrival: EMS Limitations: no limitations History of Present Illness HPI Narrative: 61-year-old male who presents emergency department for evaluation of injuries after falling down stairs at home. Patient states that he was at the top of the stairs, drinking water when he fell backwards falling down to her 3 stairs. He states that he hit his head, left shoulder and left side of his body on the stairs. He denied loss of consciousness. He has a history of stroke with right upper extremity weakness. He does take Xarelto. Currently is complaining of headache, left shoulder and left scapular pain, left chest pain and lower abdominal pain. He did sustain a laceration to the top of his head. He does not know when his last tetanus shot was given. Related Data Home Medications Medication Instructions Recorded Confirmed ferrous sulfate 325 mg (65 mg 325 tab PO DAILY 01/06/21 03/03/21 iron) tablet levothyroxine 137 mcg tablet 1 tab PO DAILY 01/06/21 03/03/21 potassium chloride 10 mEq 1 tab PO BID 01/06/21 03/03/21 tablet,extended release tamsulosin 0.4 mg capsule 1 cap PO BEDTIME 01/06/21 03/03/21 zolpidem 10 mg tablet 1 tab PO BEDTIME 01/06/21 03/03/21 atorvastatin 80 mg tablet 1 tab PO BEDTIME 03/03/21 03/03/21 carvedilol 12.5 mg tablet 6.25 mg PO BID 03/03/21 03/03/21 digoxin 125 mcg (0.125 mg) tablet 125 mcg PO USEASDIRECTD 03/03/21 03/03/21 isosorbide dinitrate 20 mg tablet 20 mg PO TID 03/03/21 03/03/21 melatonin 3 mg tablet 3 mg PO BEDTIME 03/03/21 03/03/21 sertraline 50 mg tablet 1 tab PO DAILY 03/03/21 03/03/21 Previous Rx's Medication Instructions Recorded lisinopril 5 mg tablet 5 mg PO DAILY #30 tab 01/08/21 rivaroxaban 15 mg tablet (Xarelto) 15 mg PO DAILY #30 tab 01/08/21 bumetanide 2 mg tablet 2 mg PO BID #60 tab 03/06/21 oxycodone 5 mg tablet 5 mg PO Q8H PRN #8 tab 09/18/21 Allergies Allergy/AdvReac Type Severity Reaction Status Date / Time No Known Allergies Allergy Verified 04/26/21 08:48 Review of Systems Review of Systems: Yes all other systems are reviewed and are negative Neurologic: Reports Abnormal speech present (Slow but comprehensible speech) [facility] Past Medical History [facility] Narrative: Past medical history: See below, patient had a stroke 01/08/2021 with right-sided weakness he received tPA, he has residual right upper extremity weakness, slow slurred speech. Social history: He denies tobacco use. He occasionally drinks alcohol. He denies drug use. Medical History Acute exacerbation of CHF (congestive heart failure) Acute on chronic systolic (congestive) heart failure Asthma Atrial fibrillation with RVR Cerebrovascular accident Chronic renal failure, stage 3 (moderate) Congestive cardiomyopathy Congestive heart failure Depression DVT (deep venous thrombosis) Hypothyroidism Nonsustained ventricular tachycardia Persistent atrial fibrillation Social History Social History Do you presently have visiting nurse or other home services: Yes Unable to assess alcohol history related to: Unknown Second Hand Smoke Exposure: No Advance Directives: No service: No Current occupational status: unemployed Current occupation: rt handed Physical Exam Vital Signs: Vital Signs: Last Vital Signs Temp 98 F 10/19/21 01:02 Pulse 78 10/19/21 01:02 Resp 16 10/19/21 01:02 BP 113/86 10/19/21 01:02 Pulse Ox 96 10/19/21 01:02 BMI result Body Mass Index 42.1 Const: Other: Awake, alert, male, he does have slow speech but is comprehensible, this is baseline secondary to his stroke, he answers all questions appropriately HENMT: Other: Patient has a 3.5 cm linear laceration to the right occipital scalp, laceration is not actively bleeding there is a 2 x 2 cm hematoma u nderneath the laceration Ears: external ears normal General nose exam: Normal external nose present Face and sinus: Yes normal facial exam Mouth: Normal oral and palatal mucosa present Throat: Yes posterior oropharynx normal Eyes: General: appearance normal, both eyes and all related structures Pupils: Equal, round and reactive pupils present Neck: Other: No C-spine tenderness Neck: Yes normal visual inspection, Yes no lymphadenopathy, Yes trachea midline and Yes supple Chest: Chest palpation & inspection: normal inspection of the chest and tenderness (Left anterior and posterior chest, left scapula) Resp: Effort & Inspection: normal respiratory effort and able to speak in complete sentences Auscultation: clear to auscultation bilaterally Cardio: Rate: regular rate Rhythm: regular rhythm Heart sounds: S1 normal heart sound present, S2 normal heart sound present and no murmurs GI: Inspection: Yes normal to inspection Palpation (GI): Soft to palpation, Tenderness to palpation present (GI) in the LLQ and in the LUQ and no guarding Auscultation: normal bowel sounds : General: Yes no CVA tenderness Back/Spine/Pelvis: Back: no CVA tenderness Skin: General skin exam: no rashes or lesions noted Neuro: Cranial nerves: Yes CN's II-XII intact bilaterally and Yes Equal, round and reactive pupils present Cognition (Neuro): normal cognition Speech: Abnormal speech present (Slow but comprehensible speech) Motor exam (neuro): strength not 5/5 throughout (Right upper extremity weakness secondary to stroke) Extrem: Other: Patient has a hematoma with an abrasion to his left scapular area, has tenderness with palpation of his left shoulder and pain with movement of his left shoulder. Psych: Appearance: grossly normal Speech and movement: Normal speech and movement present Affect: normal affect Attitude: cooperative Thought process: Normal thought process present Thought content: Normal thought content present Course Course Course Narrative: 61-year-old male who fell backwards down 2-3 steps at home. The patient does have a history of stroke with right upper extremity weakness. Patient is on Xarelto. Patient's physical examination did reveal laceration to the right occipital scalp. Patient does have tenderness with palpation of his left anterior and posterior chest as well as over his left scapula. Also has tenderness with palpation his left upper and left lower quadrant of his abdomen. Given the patient's size and the fact that he is on Xarelto, I am concerned that the fall may have had a significant impact on his body therefore I did order CT scan of his head, cervical spine, chest, abdomen pelvis without contrast. 0249: Patient's scalp wound was repaired by me with 8 edie. Patient's Tdap was given here in the emergency department. scan of the patient's head revealed no acute pathology. CT scan of the cervical spine revealed no cervical spine fracture. CT scan of the chest and abdomen pelvis revealed no acute findings. X-ray of the left shoulder is pending. At the end of my shift, the patient's care was turned over to my colleague, Dr. Dionne Peraza Procedures Laceration 3.5 cm right scalp laceration: Site: scalp Side (If applicable): right Size (cm): 3.5 Description: linear Depth: simple, single layer Local Anesthetic: lidocaine 2% and with epi Amount of anesthesia used (mL): 8 Pre-repair: wound explored Skin layer closed with: other (Edie) Number of sutures: 8 Discharge Plan Discharge Clinical Impression: Fall (on) (from) other stairs and steps, initial encounter Laceration of scalp Qualifiers: Encounter type: initial encounter Qualified Code(s): S01.01XA - Laceration without foreign body of scalp, initial encounter Hematoma of scalp Qualifiers: Encounter type: initial encounter Qualified Code(s): S00.03XA - Contusion of scalp, initial encounter Contusion of left scapula Qualifiers: Encounter type: initial encounter Qualified Code(s): S40.012A - Contusion of left shoulder, initial encounter CHI (closed head injury) Qualifiers: Encounter type: initial encounter Qualified Code(s): S09.90XA - Unspecified injury of head, initial encounter Patient Disposition: Still a Patient Instructions: Laceration (ED), Head Injury (ED), Contusion in Adults (ED) Additional Instructions: Your scalp laceration was repaired with 8 edie. The edie need to stay in place for 7-10 days. They can be removed by your primary care doctor, in urgent care clinic or the emergency department. Apply bacitracin twice a day to the scalp laceration until the edie are removed. Take Tylenol (acetaminophen) 500 mg pills, 2 pills every 4 to 6 hours as needed for pain. Apply ice to the areas that hurt for 15 minutes 4 to 6 times a day for the next 2-3 days. Follow-up with your doctor in 2 days. Please return to the emergency department if your symptoms get worse or if you develop any symptoms that are concerning to you. Prescriptions: No Action levothyroxine 137 mcg tablet 1 tab PO DAILY RF: 0 potassium chloride 10 mEq tablet extended release 1 tab PO BID RF: 0 tamsulosin 0.4 mg capsule 1 cap PO BEDTIME RF: 0 ferrous sulfate 325 mg (65 mg iron) tablet 325 tab PO DAILY RF: 0 zolpidem 10 mg tablet 1 tab PO BEDTIME RF: 0 lisinopril 5 mg Tablet 5 mg PO DAILY Qty: 30 RF: 0 Xarelto 15 mg Tablet 15 mg PO DAILY Qty: 30 RF: 0 atorvastatin 80 mg tablet 1 tab PO BEDTIME RF: 0 melatonin 3 mg Tablet 3 mg PO BEDTIME RF: 0 isosorbide dinitrate 20 mg tablet 20 mg PO TID RF: 0 sertraline 50 mg tablet 1 tab PO DAILY RF: 0 carvedilol 12.5 mg tablet 6.25 mg PO BID RF: 0 digoxin 125 mcg (0.125 mg) tablet 125 mcg PO USEASDIRECTD RF: 0 bumetanide 2 mg tablet 2 mg PO BID Qty: 60 RF: 0 oxycodone 5 mg tablet 5 mg PO Q8H PRN (Reason: pain) Qty: 8 RF: 0
--- NOTE | 2021-10-19 02:12 | PC.NURSE ---
PT REQUESTING ICE CHIPS. PT RESTING QUIETLY AFTER CT. NEW DRESSING APLIED TO HEAD. WILL CONTINUE TO MONITOR PT.
[2021-10-19] MEDS: Diphth,Pertus(ACell),Tet Adult 0.5 ML SYRINGE IM (03:42)
--- NOTE | 2021-10-19 03:51 | PC.NURSE ---
pt given tetanus shot.
== END 2021-10-19 03:30 | disposition home or self-care (01) ==
PROVIDERS: Emergency Provider Emergency Medicine Emergency Medical Services
DX: S01.01XA Laceration without foreign body of scalp, initial encounter (principal); S40.212A Abrasion of left shoulder, initial encounter; G44.309 Post-traumatic headache, unspecified, not intractable; M25.512 Pain in left shoulder; M54.2 Cervicalgia; W10.9XXA Fall (on) (from) unspecified stairs and steps, initial encounter; Y93.9 Activity, unspecified; Y92.9 Unspecified place or not applicable; Y99.9 Unspecified external cause status; Z79.899 Other long term (current) drug therapy
CPT/HCPCS: 12002; 70450; 71250; 72125; 73030; 74176; 90471; 90715; 99282; 99284

== ENCOUNTER 2021-12-05 09:51 | Outpatient (REF) | payer MEDICARE, MEDICAID, SELFPAY ==
--- NOTE | ~2021-12-05 | US_ITS ---
EXAMINATION: US RETROPERITONEAL LIMITED (RENAL ONLY) CLINICAL INFORMATION: Renal calculus. COMPARISON: CT abdomen and pelvis without contrast dated 10/19/2021. TECHNIQUE: Real-time imaging of the kidneys. FINDINGS: RIGHT KIDNEY: 11.4 x 5.3 x 6.3 cm (SAG x AP x TRV). The kidney is normal in size, contour, and echogenicity. Renal cortical thickness is normal. No hydronephrosis. There appears to be a complex cyst with thin septation and no internal vascularity within the mid pole lateral aspect measuring 1.0 x 0.7 x 1.0 cm in size with the appearance of a Bosniak 2 cyst. Within the lower pole there is a 1.2 x 0.4 x 0.9 cm nonobstructing calculus. LEFT KIDNEY: 11.8 x 7.0 x 6.1 cm (SAG x AP x TRV). The kidney is normal in size, contour, and echogenicity. Renal cortical thickness is normal. No hydronephrosis. Within the lower pole there is an exophytic well-circumscribed 1.5 x 1.5 x 1.5 cm hypoechoic structure with some increased through sound transmission but I cannot definitely say that this represents a simple cyst. It does not have any septations and there is no internal vascularity. I would give this a Bosniak 2F category for follow-up in 6 months. Within the lower pole there is a 6 x 4 x 4 mm nonobstructing calculus. US/US renal BI IMPRESSION: Bilateral nephrolithiasis without evidence of obstructive uropathy. Bilateral renal cysts with what appears to be a Bosniak 2 right renal cyst and a Bosniak 2F left renal cyst.. Recommend 6 month follow-up ultrasound evaluation if no other interval imaging includes the kidneys.
== END 2021-12-05 09:52 | disposition home or self-care (01) ==
LOC: HO.US 09:51
PROVIDERS: Visit Provider Internal Medicine Geriatric Medicine
DX: N20.0 Calculus of kidney (principal)
CPT/HCPCS: 76775

== ENCOUNTER 2022-01-01 08:27 | Emergency (ER) | payer MEDICARE, MEDICAID, SELFPAY ==
[2022-01-01 09:03] VITALS: BP 92/69; PULSE 104; RESP 18; TEMP 36.5; O2SAT 94; BMI 34.2
[2022-01-01 09:38] LABS: MANUAL DIFF FLAG NO
[2022-01-01 09:39] LABS: Basophils Absolute Auto 0.1 X10*3/uL (0.0-0.2); Basophils Percent Auto 1.2 % (0-2); Eosinophils Absolute Auto 0.1 X10*3/uL (0.0-0.4); Eosinophils Percent Auto 1.5 % (0-4); Hematocrit 41.1 % (42.0-52.0); Hemoglobin 13.4 g/dl (14.0-18.0); Imm Gran Abs Auto 0.01 X10*3/uL (0.00-0.03); Imm Gran Pct Auto 0.2 % (0.0-0.4); Lymphocytes Absolute Auto 1.2 X10*3/uL (1.2-4.9); Lymphocytes Percent Auto 28.8 % (20-40); Mean Corpuscular HGB Conc 32.6 g/dl (31.0-36.0); Mean Corpuscular Hemoglobin 28.3 pg (27.0-33.0); Mean Corpuscular Volume 86.7 fL (80.0-98.0); Mean Platelet Volume 11.9 fL (9.4-12.4); Monocytes Absolute Auto 0.4 X10*3/uL (0.1-1.2); Monocytes Percent Auto 8.7 % (2-11); Neutrophils Absolute Auto 2.5 x10*3/uL (2.0-8.3); Neutrophils Percent Auto 59.6 % (45-73); Platelet Count 202 X10*3/uL (160-400); Red Blood Count 4.74 X10*6/uL (4.60-5.80); Red Cell Distribution Width 17.6 % (11.0-16.0); White Blood Count 4.1 X10*3/uL (4.8-10.8)
[2022-01-01 09:58] LABS: Anion Gap 15 (12-20); Blood Urea Nitrogen 39 mg/dL (9-16); Calcium 9.6 mg/dL (8.4-10.2); Carbon Dioxide 23 mmol/L (22-29); Chloride 105 mmol/L (96-108); Creatinine Clr Calc Pharmacy 41.9; Estimated Glomerular Filt Rate 27; Glucose Random 106 mg/dL (60-115); Potassium 4.3 mmol/L (3.3-5.1); Sodium 139 mmol/L (135-145)
[2022-01-01 10:41] LABS: Appearance Urine CLOUDY; Color Urine YELLOW; Glucose Urine UA 250 MG/DL (NEG); Leukocyte Esterase Urine NEG (NEG); Nitrite Urine NEG (NEG); PH 5.5 (5.0-8.0); Specific Gravity - Urine 1.015 (1.005-1.025); UACC Culture Trigger NO; Urine Blood 3+ (NEG); Urine Ketones NEG (NEG); Urine Protein 1+ MG/DL (NEG-TRACE)
[2022-01-01 10:47] LABS: RBC Urine TNTC /HPF (0); Squamous Epithelial Cell Urine 1+ /LPF; WBC Urine 0-2 /HPF (0-4)
[2022-01-01 10:48] LABS: Granular Casts Urine 0-2 /LPF
[2022-01-01 10:49] LABS: Calcium Oxalate Crystals Urine 1+ /LPF
--- NOTE | 2022-01-01 15:24 | ED.MALEGU ---
HPI - Male Genitourinary General Chief complaint: Urogenital-Male Stated complaint: Blood in urine Time Seen by Provider: 01/01/22 13:50 Source: patient and family () Mode of arrival: ambulatory Limitations: no limitations History of Present Illness HPI Narrative: 61-year-old male who presents emergency department for evaluation of hematuria. The patient states that he has had hematuria for months, he states that the hematuria got worse over the past week. The patient has a history of cardiomyopathy with an EF of 20% and an AICD. He states that he has a large kidney stone and after a urologic procedure he had a stroke. He states that he has a urologist and a litigation claim representative at [facility]. He however the urologist at [facility] does not want to do a procedure on him therefore he came to the [facility] Emergency Department for evaluation of his hematuria. He states that he has no difficulty urinating. States that the urine is frankly bloody but he has not noticed any blood clots. He denied dysuria but he states he does have frequency since he is on diuretics. States that recently his diuretics were increased secondary to increased peripheral edema and fluid overload. He denied fever, chills, chest pain, shortness of breath, nausea, vomiting or diarrhea. Related Data Home Medications Medication Instructions Recorded Confirmed ferrous sulfate 325 mg (65 mg 325 tab PO DAILY 01/06/21 03/03/21 iron) tablet levothyroxine 137 mcg tablet 1 tab PO DAILY 01/06/21 03/03/21 potassium chloride 10 mEq 1 tab PO BID 01/06/21 03/03/21 tablet,extended release tamsulosin 0.4 mg capsule 1 cap PO BEDTIME 01/06/21 03/03/21 zolpidem 10 mg tablet 1 tab PO BEDTIME 01/06/21 03/03/21 atorvastatin 80 mg tablet 1 tab PO BEDTIME 03/03/21 03/03/21 carvedilol 12.5 mg tablet 6.25 mg PO BID 03/03/21 03/03/21 digoxin 125 mcg (0.125 mg) tablet 125 mcg PO USEASDIRECTD 03/03/21 03/03/21 isosorbide dinitrate 20 mg tablet 20 mg PO TID 03/03/21 03/03/21 melatonin 3 mg tablet 3 mg PO BEDTIME 03/03/21 03/03/21 sertraline 50 mg tablet 1 tab PO DAILY 03/03/21 03/03/21 Previous Rx's Medication Instructions Recorded lisinopril 5 mg tablet 5 mg PO DAILY #30 tab 01/08/21 rivaroxaban 15 mg tablet (Xarelto) 15 mg PO DAILY #30 tab 01/08/21 bumetanide 2 mg tablet 2 mg PO BID #60 tab 03/06/21 oxycodone 5 mg tablet 5 mg PO Q8H PRN #8 tab 09/18/21 Allergies Allergy/AdvReac Type Severity Reaction Status Date / Time No Known Allergies Allergy Verified 04/26/21 08:48 Review of Systems Review of Systems: Yes all other systems are reviewed and are negative [facility] Past Medical History [facility] Narrative: Social history: The patient is and his is here in the emergency department with him. He denies tobacco, alcohol and drug use. Medical History Acute exacerbation of CHF (congestive heart failure) Acute on chronic systolic (congestive) heart failure Asthma Atrial fibrillation with RVR Cerebrovascular accident Chronic renal failure, stage 3 (moderate) Congestive cardiomyopathy Congestive heart failure Depression DVT (deep venous thrombosis) Hypothyroidism Nonsustained ventricular tachycardia Persistent atrial fibrillation Social History Social History Do you presently have visiting nurse or other home services: Yes Unable to assess alcohol history related to: Unknown Second Hand Smoke Exposure: No Advance Directives: No Advance Directives Information Provided: No Advance Directives on File: No service: No Current occupational status: unemployed Current occupation: rt handed Physical Exam Vital Signs: Vital Signs: Last Vital Signs Temp 97.7 F 01/01/22 09:03 Pulse 104 H 01/01/22 09:03 Resp 18 01/01/22 09:03 BP 92/69 01/01/22 09:03 Pulse Ox 94 01/01/22 09:03 BMI result Body Mass Index 34.2 Const: Other: Awake, alert, male patient, very pleasant and cooperative, he does not appear to be in distress Orientation/consciousness: oriented to person and oriented to place HEENT: Head: Yes normal to inspection, Yes normocephalic and Yes atraumatic Ears: external ears normal General nose exam: Normal external nose present Face and sinus: Yes normal facial exam Mouth: Normal oral and palatal mucosa present Throat: Yes posterior oropharynx normal Eyes: General: appearance normal, both eyes and all related structures Pupils: Equal, round and reactive pupils present Neck: Neck: Yes normal visual inspection, Yes no lymphadenopathy, Yes trachea midline and Yes supple Chest: Chest palpation & inspection: normal inspection of the chest and normal palpation of entire chest wall Resp: Effort & Inspection: normal respiratory effort and able to speak in complete sentences Auscultation: clear to auscultation bilaterally Cardio: Rate: regular rate Rhythm: regular rhythm Heart sounds: S1 normal heart sound present, S2 normal heart sound present and no murmurs GI: Inspection: Yes normal to inspection Palpation (GI): Soft to palpation, nontender and no guarding Auscultation: normal bowel sounds : General: Yes no CVA tenderness Back/Spine/Pelvis: Back: no CVA tenderness Skin: General skin exam: no rashes or lesions noted Neuro: General: oriented to person and oriented to place Cranial nerves: Yes CN's II-XII intact bilaterally and Yes Equal, round and reactive pupils present Cognition (Neuro): normal cognition Motor exam (neuro): Other motor observations present (Right upper and lower extremity weakness secondary to old stroke) Extrem: General: Yes normal to inspection Psych: Appearance: grossly normal Speech and movement: Normal speech and movement present Affect: normal affect Attitude: cooperative Thought process: Normal thought process present Thought content: Normal thought content present Course Course Course Narrative: 61-year-old male who presents emergency department for evaluation of hematuria. The patient has had hematuria for months but has been worse in the last week. The patient apparently had a stroke after urologic procedure in the past and does have significant cardiomyopathy with an EF of 20% and an AICD. Patient is on apixaban and aspirin as well. Patient's physical examination is consistent with his old stroke otherwise was unremarkable he has no abdominal tenderness. Laboratory evaluation revealed a normal CBC with an H&H of 13 and 41.1. Patient does have an elevated BUN creatinine of 39 and 2.49, this is above his baseline of 23 and 1.73 on 09/18/2021. Patient's Bumex has been increased secondary to fluid overload and I did discuss this increased BUN and creatinine with the patient his and advised them to contact their provider to decide if they need to decrease the Bumex. Patient's urine is consistent with hematuria with no evidence of infection. I did discuss this finding with the patient and his as well, at this time I do not think that patient needs to be hospitalized for diuresis or for management of his hematuria since he is able to urinate without any difficulty. Patient will need to coordinate with his [facility] litigation claim representative and urologist to see if there is any procedure that can be done to treat his kidney stone her further evaluate his hematuria. MDM - Male Genitourinary Lab Data Result diagrams: 01/01/22 09:33 01/01/22 09:33 Labs: Lab Results 01/01/22 01/01/22 01/01/22 Range/Units 09:33 09:33 10:09 WBC 4.1 L (4.8-10.8) X10*3/uL RBC 4.74 (4.60-5.80) X10*6/uL Hgb 13.4 L (14.0-18.0) g/dl Hct 41.1 L (42.0-52.0) % MCV 86.7 (80.0-98.0) fL MCH 28.3 (27.0-33.0) pg MCHC 32.6 (31.0-36.0) g/dl RDW 17.6 H (11.0-16.0) % Plt Count 202 D (160-400) X10*3/uL MPV 11.9 (9.4-12.4) fL Immature Gran % (Auto) 0.2 (0.0-0.4) % Neut % (Auto) 59.6 (45-73) % Lymph % (Auto) 28.8 (20-40) % [place] % (Auto) 8.7 (2-11) % Eos % (Auto) 1.5 (0-4) % Baso % (Auto) 1.2 (0-2) % Lymph # (Auto) 1.2 (1.2-4.9) X10*3/uL [place] # (Auto) 0.4 (0.1-1.2) X10*3/uL Eos # (Auto) 0.1 (0.0-0.4) X10*3/uL Baso # (Auto) 0.1 (0.0-0.2) X10*3/uL Abs Immat Gran (auto) 0.01 (0.00-0.03) X10*3/uL Absolute Neuts (auto) 2.5 (2.0-8.3) x10*3/uL Absolute Nucleated RBC 0.000 (0.0-0.012) X10*3/uL Nucleated RBC % (auto) 0.0 (0.0-0.2) /100WBC Sodium 139 (135-145) mmol/L Potassium 4.3 (3.3-5.1) mmol/L Chloride 105 (96-108) mmol/L Carbon Dioxide 23 (22-29) mmol/L Anion Gap 15 (12-20) BUN 39 H D (9-16) mg/dL Creatinine 2.49 H (0.5-1.4) mg/dL Estim Creat Clear Calc 41.9 Estimated GFR 27 Random Glucose 106 (60-115) mg/dL Calcium 9.6 (8.4-10.2) mg/dL Urine Color YELLOW Urine Appearance CLOUDY Urine pH 5.5 (5.0-8.0) Ur Specific [place] 1.015 (1.005-1.025) Urine Protein 1+ H (NEG-TRACE) MG/DL Urine Glucose (UA) 250 H (NEG) MG/DL Urine Ketones NEG (NEG) MG/DL Urine Blood 3+ H (NEG) Urine Nitrite NEG (NEG) Ur Leukocyte Esterase NEG (NEG) Urine RBC TNTC H (0) /HPF Urine WBC 0-2 (0-4) /HPF Ur Squamous Epith Cells 1+ /LPF Calcium Oxalate Crystal 1+ /LPF Urine Bacteria NONE /LPF Granular Casts 0-2 /LPF Discharge Plan Discharge Clinical Impression: Hematuria Patient Disposition: Home, Self-Care Additional Instructions: Your complete blood count today revealed that you are not anemic, your hematocrit and hemoglobin were normal at 41.1 and 13. Your basic metabolic panel revealed normal electrolytes. Your kidney function is elevated with a BUN and creatinine of 39 and 2.49. This may be slightly above your baseline so you should discuss this result with her doctor to determine if they need to decrease your diuretic (Bumex-bumetanide). Your urine revealed a lot of red blood cells (too numerous to count) but you do not have any white blood cells or bacteria so I do not think that an infection as the cause of your bleeding in your urine (hematuria). You need to discuss with your litigation claim representative whether not you can safely undergo a urologic procedure to try to break up the large kidney stone that may be causing her bleeding and your litigation claim representative should try to coordinate this procedure with the urologist at [facility]. Follow-up with your doctor in 2 days. Please return to the emergency department if your symptoms get worse or if you develop any symptoms that are concerning to you. Prescriptions: No Action levothyroxine 137 mcg tablet 1 tab PO DAILY 0RF potassium chloride 10 mEq tablet extended release 1 tab PO BID 0RF tamsulosin 0.4 mg capsule 1 cap PO BEDTIME 0RF ferrous sulfate 325 mg (65 mg iron) tablet 325 tab PO DAILY 0RF zolpidem 10 mg tablet 1 tab PO BEDTIME 0RF lisinopril 5 mg Tablet 5 mg PO DAILY Qty: 30 0RF Protocol: Hold for SBP< HOLD for SBP < : 90 Xarelto 15 mg Tablet 15 mg PO DAILY Qty: 30 0RF atorvastatin 80 mg tablet 1 tab PO BEDTIME 0RF melatonin 3 mg Tablet 3 mg PO BEDTIME 0RF isosorbide dinitrate 20 mg tablet 20 mg PO TID 0RF sertraline 50 mg tablet 1 tab PO DAILY 0RF carvedilol 12.5 mg tablet 6.25 mg PO BID 0RF Protocol: Hold for SBP/HR < HOLD for SBP < : 90 HOLD for HR < : 60 digoxin 125 mcg (0.125 mg) tablet 125 mcg PO USEASDIRECTD 0RF Rx Instructions: daily friday, friday, , friday, friday bumetanide 2 mg tablet 2 mg PO BID Qty: 60 0RF oxycodone 5 mg tablet 5 mg PO Q8H PRN (Reason: pain) Qty: 8 0RF
[2022-01-01 15:38] VITALS: BP 104/73; PULSE 106; RESP 20; TEMP 36.6; O2SAT 95
== END 2022-01-01 15:51 | disposition home or self-care (01) ==
PROVIDERS: Emergency Provider Emergency Medicine Emergency Medical Services; PCP Internal Medicine
DX: R31.9 Hematuria, unspecified (principal); I13.0 Hypertensive heart and chronic kidney disease with heart failure and stage 1 through stage 4 chronic kidney disease, or unspecified chronic kidney disease; N18.30 Chronic kidney disease, stage 3 unspecified; I50.23 Acute on chronic systolic (congestive) heart failure; I48.19 Other persistent atrial fibrillation; Z86.718 Personal history of other venous thrombosis and embolism; Z86.73 Personal history of transient ischemic attack (TIA), and cerebral infarction without residual deficits
CPT/HCPCS: 36415; 80048; 81001; 85025; 99283; 99284